=== PATIENT | male | born 1940 | race Two or more races ===

== ENCOUNTER 2020-06-03 11:53 | Inpatient (IN) | payer MEDICARE ==
[~2020-06-03] VITALS: Ht 170.2 cm; Wt 64.0 kg
[2020-06-03 12:05] VITALS: BP 110/75
--- NOTE | 2020-06-03 12:10 | Emergency Room Report ---
History of Present Illness General Chief Complaint: Edema Source: Patient, EMS Present Illness HPI 80-year-old male with past medical history of hypertension and dyslipidemia presents with chief complaint of bilateral lower extremity edema for the past 8 days. 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 Medical Cash Poster name is Dr. Moore however patient has not followed up with him for the past 1 year. He also complains of dyspnea on exertion and difficulty catching his breath. Admits to two-pillow orthopnea. Denies chest pain, fever, rash, cough , nausea, vomiting, diarrhea, melena, hematochezia, trauma or lacerations to his legs. The patient's symptoms were gradual onset, severity was moderate, duration since 8 days. Quality: Swollen Past medical history: Hypertension, dyslipidemia Past surgical history: Denies Smoking: Denies Alcohol use: Occasional Drug use: Denies Review of systems: CONST: No fevers or chills, No night sweats PULMONARY: No productive cough, + shortness of breath CARDIAC: No chest pain, No palpitations GI: No vomiting, No diarrhea , No melena_or_BRBPR : No dysuria, No hematuria, No discharge NEURO: No new_focal_weakness_or_numbness, No confusion, No vision changes 14 point Review of Systems is otherwise negative except per HPI Physical Exam: GENERAL: Awake_alert_ nontoxic, no acute distress Spo2 98% on RA -normal EYES: Extraocular muscles are intact. Conjunctivae clear. Lids without swelling ENT: External nose and ear normal_in_appearance. Oropharynx clear. Head_ atraumatic, Moist_oral_mucosa NECK: + JVD. No meningismus. No thyromegaly. Supple. Trachea midline RESP: Course breath sounds bilaterally. Symmetric rise. No stridor. CARDIAC: Regular rate and regular rhytm. 2+ pedal edema bilaterally negative jane sign ABDOMEN: Soft. Nondistended. Nontender_No_rebound_or_guarding. MSK: Normal muscle tone, without rigidity. Extremities without asymmetric deformity or swelling. SKIN: Warm and dry. No visible cyanosis or pallor NEUROLOGIC: Alert, oriented x3. Motor_and_sensation_grossly_intact. No truncal ataxia. Gait_normal Psych: Normal mood and affect, normal judgment and insight - COORDINATION OF CARE Case was discussed with: Patient , patient's physician Any labs and imaging that were ordered were interpreted as part of the medical decision making: Medical Decision Making/Plan: Differential includes CHF, pulmonary edema, pulmonary embolism, pneumonia, pleural effusions, pneumothorax, among others. EKG NSR without any obvious signs of ischemia. CXR shows congestion, bilateral pleural effusion, CM. No evidence of pneumonia , but does have findings consistent with vascular congestion from CHF. Troponin negative x 1. BNP > 7000 COVID negative Symptoms are not likely to be due to pulmonary embolism, the patient has no significant PE risk factors and has a more likely alternate cause of their symptoms, given their chest xray findings, lung exam and presentation so workup was deferred and not pursued. The patient appears to be in decompensated CHF in exacerbation and not a suitable candidate for outpatient treatment so will be admitted for inpatient diuresis and further evaluation and treatment. - CRITICAL CARE TIME - I spent 35 minutes of critical care time. This time excludes any separately billable procedures. Treatments/Evaluations: Emergent and rapid respiratory assessment and management with continuous monitoring. Advanced airway equipment at the ready, while the patient's respiratory symptoms were stabilized. Given the patients presentation with CHF , there existed the potential for imminent deterioration in the patient's condition due to respiratory compromise. Organ systems at risk for failure without immediate intervention include pulmonary / respiratory I spoke with Dr. Whitley, and reviewed the patients presentation, workup, results, and treatment. They will admit the patient for further care and evaluation, and assume care of the patient at this time. 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 Mediastinum normal. No infiltrate. Impression: Cardiomegaly, pleural effusions bilateral. Vascular congestion ST depressions in lead I and aVL, V5 through V6. Q waves in the inferior leads The X-ray(s) were independently viewed and interpreted contemporaneously Electronically signed by Ashley egan DO Reevaluation Time: 14:45 Last Vital Signs Date Time Temp Pulse Resp B/P (MAP) Pulse Ox O2 Delivery O2 Flow Rate FiO2 06/03/20 11:59 97.5 71 18 104/70 (81) 96 Room Air Status: improved Disposition: ADMITTED INPATIENT - [facility] Admit Decision Time: 14:00 Condition: Stable Ashley Drummond D.O. Jun 03, 2020 12:10
[2020-06-03 13:27] LABS: BASOPHILS % (AUTO) 0.6 % (0.0-2.0); EOSINOPHILS % (AUTO) 0.5 % (0.0-3.0); HEMATOCRIT 35.8 % (42.0-52.0); LYMPHOCYTES % (AUTO) 14.2 % (20.0-45.0); MEAN CORPUSCULAR VOLUME 86 FL (80-99); NEUTROPHILS % (AUTO) 75.7 % (45.0-75.0); PLATELET COUNT 274 K/UL (150-450); RED BLOOD COUNT 4.18 M/UL (4.70-6.10); RED CELL DISTRIBUTION WIDTH 16.4 % (11.6-14.8)
[2020-06-03 13:40] LABS: APPEARANCE,URINE CLEAR; BILIRUBIN, URINE NEGATIVE (NEGATIVE); COLOR,URINE YELLOW; GLUCOSE, URINE (UA) NEGATIVE (NEGATIVE); KETONES,URINE NEGATIVE (NEGATIVE); LEUKOCYTE ESTERASE ,URINE 1+ (NEGATIVE); NITRITE,URINE NEGATIVE (NEGATIVE); PH,URINE 5 (4.5-8.0); PROTEIN,URINE 1+ (NEGATIVE); UROBILINOGEN,URINE NORMAL MG/DL (0.0-1.0)
[2020-06-03 13:48] LABS: ANION GAP 14 mmol/L (5-15); BLOOD UREA NITROGEN 22 mg/dL (7-18); CALCIUM 8.8 MG/DL (8.5-10.1); CARBON DIOXIDE 23 MMOL/L (21-32); CHLORIDE 104 MMOL/L (98-107); CREATININE 1.5 MG/DL (0.55-1.30); POTASSIUM 3.7 MMOL/L (3.5-5.1); SODIUM 141 MMOL/L (136-145)
[2020-06-03 13:59] LABS: ALANINE AMINOTRANSFERASE 25 U/L (12-78); ALBUMIN 3.9 G/DL (3.4-5.0); ALBUMIN/GLOBULIN RATIO 1.1 (1.0-2.7); ALKALINE PHOSPHATASE 75 U/L (46-116); ASPARTATE AMINO TRANSFERASE 21 U/L (15-37); BILIRUBIN,TOTAL 0.8 MG/DL (0.2-1.0)
[2020-06-03] MEDS ORDERED: JANUMET 50-1,01 EACH ORAL (14:09)
[2020-06-03] MEDS ORDERED: Nitroglycerin 2% oint pkt TOPIC ONE (14:15)
[2020-06-03 14:55] VITALS: BP 114/72
--- NOTE | 2020-06-03 16:00 | Diagnostic Imaging Report ---
Indication: Chest pain Technique: One view of the chest Comparison: none Findings: There is bilateral interstitial congestion, bilateral infiltrates, and bilateral basilar pleural effusions. The heart is enlarged. Impression: Findings compatible with congestive heart failure
[2020-06-03] MEDS ORDERED: Darunavir 600mg tab ORAL SCH (18:00)
[2020-06-03 20:00] VITALS: BP 107/69
[2020-06-03] MEDS: NovoLOG Insulin Flexpen SUBQ SCH (21:00)
[2020-06-04] VITALS: BP 111/64
[2020-06-04 04:00] VITALS: BP 103/66
[2020-06-04] MEDS ORDERED: NovoLOG Insulin Flexpen SUBQ SCH (06:30)
[2020-06-04] MEDS: NovoLOG Insulin Flexpen SUBQ SCH ×4 (06:30→20:57)
[2020-06-04 06:40] LABS: BASOPHILS % (AUTO) 0.7 % (0.0-2.0); HEMATOCRIT 34.8 % (42.0-52.0); HEMOGLOBIN 10.9 G/DL (14.2-18.0); LYMPHOCYTES % (AUTO) 16.3 % (20.0-45.0); MEAN CORPUSCULAR VOLUME 85 FL (80-99); MONOCYTES % (AUTO) 9.8 % (1.0-10.0); NEUTROPHILS % (AUTO) 72.2 % (45.0-75.0); PLATELET COUNT 286 K/UL (150-450); RED BLOOD COUNT 4.08 M/UL (4.70-6.10); RED CELL DISTRIBUTION WIDTH 16.4 % (11.6-14.8); WHITE BLOOD COUNT 10.2 K/UL (4.8-10.8)
[2020-06-04 07:04] LABS: ALANINE AMINOTRANSFERASE 24 U/L (12-78); ALBUMIN 3.6 G/DL (3.4-5.0); ALBUMIN/GLOBULIN RATIO 1.1 (1.0-2.7); ALKALINE PHOSPHATASE 72 U/L (46-116); ANION GAP 10 mmol/L (5-15); ASPARTATE AMINO TRANSFERASE 18 U/L (15-37); BILIRUBIN,TOTAL 0.7 MG/DL (0.2-1.0); BLOOD UREA NITROGEN 23 mg/dL (7-18); CALCIUM 8.7 MG/DL (8.5-10.1); CARBON DIOXIDE 25 MMOL/L (21-32); CHLORIDE 106 MMOL/L (98-107); CHOLESTEROL 82 MG/DL (< 200); CREATININE 1.5 MG/DL (0.55-1.30); HDL CHOLESTEROL 37 MG/DL (40-60); POTASSIUM 4.2 MMOL/L (3.5-5.1); SODIUM 141 MMOL/L (136-145); TRIGLYCERIDES 54 MG/DL (30-150)
[2020-06-04 08:00] VITALS: BP 102/62
[2020-06-04] MEDS ORDERED: Losartan 50mg tab ORAL SCH (09:00)
[2020-06-04] MEDS: Heparin 5000 units/ml inj SUBQ SCH ×2 (09:57→21:12)
[2020-06-04 12:08] VITALS: BP 105/65
[2020-06-04] MEDS ORDERED: PREZCOBIX 8001 EACH PO (15:21)
[2020-06-04] MEDS ORDERED: TIVICAY50 MG ORAL (15:21)
[2020-06-04] MEDS ORDERED: ATORVASTATIN CA20 MG ORAL (15:21)
[2020-06-04] MEDS ORDERED: LUBRICATING EYE15 ML OP (15:28)
[2020-06-04] MEDS ORDERED: MELATONIN 5 MG1 EAC1 ORAL (15:28)
[2020-06-04] MEDS ORDERED: METAMUCIL0.52 G1 PO (15:28)
[2020-06-04] MEDS ORDERED: LOSARTAN POTASS50 MG ORAL (15:28)
[2020-06-04] MEDS ORDERED: NAPHCON-A EYE D15 ML OP (15:28)
[2020-06-04] MEDS ORDERED: LORATADINE10 M2 PO (15:28)
[2020-06-04] MEDS ORDERED: CYANOCOBAL1000 MCG/2 IJ (15:28)
[2020-06-04] MEDS ORDERED: FLOMAX0.4 MG ORAL (15:28)
[2020-06-04 15:47] VITALS: BP 93/50
--- NOTE | 2020-06-04 18:45 | Consultation ---
DATE OF CONSULTATION: 06/04/2020 PULMONARY CONSULTATION This is a 80-year-old male with a history of hypertension and hyperlipidemia. He came into the hospital with lower extremity edema. He states he is short of breath. 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 He admits to having orthopnea and PND. The patient reports cough and shortness of breath. PAST MEDICAL HISTORY: Hypertension, hyperlipidemia, unknown cardiac disease. HOME MEDICATIONS: Reviewed, reconciled. REVIEW OF SYSTEMS: Denies any headaches, hematemesis, melena, hematochezia, or weight loss. PHYSICAL EXAMINATION: GENERAL: A 80-year-old male. VITAL SIGNS: Blood pressure 90/60, heart rate 54, respirations 18, O2 sat 98% on 2 L oxygen HEENT: Unremarkable. LUNGS: Decreased breath sounds bilaterally with a few basal crackles. HEART: Normal heart sounds. ABDOMEN: Soft. EXTREMITIES: There is 1+ edema. LABORATORY DATA: Lab testing shows normal CBC with hemoglobin 10.9, creatinine 1.5. Troponin is elevated at 0.14. ProBNP 5367. X-ray of chest was obtained, which shows evidence of pulmonary edema. IMPRESSION: 1. Pulmonary edema. 2. Renal insufficiency. 3. Hypertension. 4. Hyperlipidemia. DISCUSSION: Agree with admission and care. The patient needs 2D echocardiogram, cardiac evaluation. Increase diuresis with careful attention to renal function. DVT prophylaxis. We will follow carefully. Sigifredo Velasquez M.D. DR: LESLEY JOB#: [id number] CC:
[2020-06-04 20:00] VITALS: BP 118/92
--- NOTE | 2020-06-04 21:20 | Cardiology Progress Note ---
Subjective DATE OF SERVICE: Jun 04, 2020 Denies any CP. Says he is less SOB. Doesn't know if he has leg swelling Objective Last 24 Hour Vital Signs Date Time Temp Pulse Resp B/P (MAP) Pulse Ox O2 Delivery O2 Flow Rate FiO2 06/04/20 16:00 62 06/04/20 15:47 98.5 64 20 93/50 (64) 98 06/04/20 12:08 98.1 72 19 105/65 (78) 98 06/04/20 12:00 74 06/04/20 09:54 71 96/54 06/04/20 09:54 96/54 06/04/20 08:35 Room Air 06/04/20 08:00 71 06/04/20 08:00 98.4 71 19 102/62 (75) 98 06/04/20 04:00 96.0 69 18 103/66 (78) 94 06/04/20 04:00 73 06/04/20 00:00 71 06/04/20 00:00 97.1 72 18 111/64 (80) 96 06/03/20 21:18 73 107/69 HEENT: other - facial lipodystrophy CARDIAC: normal rate, regular rhythm, normal S1 and S2, systolic murmur - 1/6 systolic murmur at apex ABDOMEN: non tender, soft EXTREMITIES: no calf tenderness, +2 edema Laboratory Tests Test 06/04/20 05:34 06/04/20 16:20 06/04/20 20:56 White Blood Count 10.2 K/UL (4.8-10.8) Red Blood Count 4.08 M/UL (4.70-6.10) L Hemoglobin 10.9 G/DL (14.2-18.0) L Hematocrit 34.8 % (42.0-52.0) L Mean Corpuscular Volume 85 FL (80-99) Mean Corpuscular Hemoglobin 26.6 PG (27.0-31.0) L Mean Corpuscular Hemoglobin Concent 31.3 G/DL (32.0-36.0) L Red Cell Distribution Width 16.4 % (11.6-14.8) H Platelet Count 286 K/UL (150-450) Mean Platelet Volume 7.1 FL (6.5-10.1) Neutrophils (%) (Auto) 72.2 % (45.0-75.0) Lymphocytes (%) (Auto) 16.3 % (20.0-45.0) L Monocytes (%) (Auto) 9.8 % (1.0-10.0) Eosinophils (%) (Auto) 1.0 % (0.0-3.0) Basophils (%) (Auto) 0.7 % (0.0-2.0) Sodium Level 141 MMOL/L (136-145) Potassium Level 4.2 MMOL/L (3.5-5.1) Chloride Level 106 MMOL/L (98-107) Carbon Dioxide Level 25 MMOL/L (21-32) Anion Gap 10 mmol/L (5-15) Blood Urea Nitrogen 23 mg/dL (7-18) H Creatinine 1.5 MG/DL (0.55-1.30) H Estimat Glomerular Filtration Rate 45.3 mL/min (>60) Glucose Level 91 MG/DL (74-106) Calcium Level 8.7 MG/DL (8.5-10.1) Magnesium Level 2.2 MG/DL (1.8-2.4) Total Bilirubin 0.7 MG/DL (0.2-1.0) Aspartate Amino Transf (AST/SGOT) 18 U/L (15-37) Alanine Aminotransferase (ALT/SGPT) 24 U/L (12-78) Alkaline Phosphatase 72 U/L (46-116) Troponin I 0.142 ng/mL (0.000-0.056) Pro-B-Type Natriuretic Peptide 5367 pg/mL (0-125) H Total Protein 7.0 G/DL (6.4-8.2) Albumin 3.6 G/DL (3.4-5.0) Globulin 3.4 g/dL Albumin/Globulin Ratio 1.1 (1.0-2.7) Triglycerides Level 54 MG/DL (30-150) Cholesterol Level 82 MG/DL (< 200) LDL Cholesterol 37 mg/dL (<100) HDL Cholesterol 37 MG/DL (40-60) L Cholesterol/HDL Ratio 2.2 (3.3-4.4) L Thyroid Stimulating Hormone (TSH) 2.081 uiU/mL (0.358-3.740) POC Whole Blood Glucose 127 MG/DL (74-106) H Pending Microbiology Date/Time Source Procedure Growth Status 06/03/20 13:35 Nasopharynx SARS-CoV-2 RdRp Gene Assay - Final Complete EKG INTERPRETATION: 2D Echo: EF 35% with regional WM abn. 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
--- NOTE | 2020-06-04 23:45 | History and Physical Report ---
DATE OF ADMISSION: 06/03/2020 REASON FOR ADMISSION: Congestive heart failure exacerbation and elevated troponin level. HISTORY OF PRESENT ILLNESS: This 80-year-old male with a history of high blood pressure has had over a week of progressive lower extremity swelling. He has had some shortness of breath on exertion, but not at rest, but does admit to 2-pillow orthopnea. He has not had chest pain. He has not had recent upper respiratory symptoms such as cough, sputum production, fevers, or chills nor he had any GI symptomatology such as diarrhea, nausea, or vomiting. The patient has been compliant with medications. PAST MEDICAL HISTORY: Hypertension, HIV, AIDS, dyslipidemia, insulin-requiring diabetes mellitus. SOCIAL HISTORY: Negative for smoking, alcohol abuse, or substance abuse. ALLERGIES: None known. MEDICATIONS: Reviewed and reconciled. REVIEW OF SYSTEMS: No fevers or chills. No loss of vision or hearing. No sinus congestion. No change in bowel habits. No history of abnormal blood clotting. He states that he is on anti RNA therapy and has undetectable viral load. There is no history of seizure or stroke. There is no history of thyroid disorder or diabetes. PHYSICAL EXAMINATION: VITAL SIGNS: Blood pressure 104/70, heart rate 71, respirations 18, afebrile. HEENT: Facial lipodystrophy. NECK: Jugular venous pressure greater than 10. LUNGS: Diminished breath sounds and rales. CARDIAC: Diffuse point of maximum pulse. Regular rhythm rate. Normal S1, S2. A 1/6 systolic apical murmur. No third heart sound. ABDOMEN: Soft. No ascites. EXTREMITIES: 2+ bilateral pitting edema. NEUROLOGIC: Nonfocal. LABORATORY AND DIAGNOSTIC DATA: EKG with sinus rhythm, left ventricular hypertrophy with repolarization changes and possible anterolateral ischemia. Chest x-ray with pleural effusions and pulmonary venous congestion. White count 9, hemoglobin 11. Troponin 0.055. BUN 23, creatinine 1.5, potassium 3.7. Pro natriuretic peptide 7600. IMPRESSION: 1. Acute myocardial ischemia. 2. Acute on chronic systolic and diastolic congestive heart failure. 3. HIV/AIDS. 4. Acute on chronic kidney insufficiency. 5. Anemia of chronic disease. 6. Insulin-requiring diabetes mellitus with mild hyperglycemia. PLAN: 1. Cardiac monitoring. 2. Serial troponins. 3. Diuresis. 4. Maximization of anti-failure and antianginal therapy. 5. Echocardiogram. 6. DVT prophylaxis. 7. Venous duplex study to assess for possible source of pulmonary emboli. 8. Insulin coverage by sliding scale. Ronald Whitley M.D. DR: JOSELIN JOB#: [id number] CC:
[2020-06-05] VITALS: BP 102/58
[2020-06-05 04:00] VITALS: BP 123/77
[2020-06-05] MEDS: NovoLOG Insulin Flexpen SUBQ SCH ×4 (06:30→20:53)
[2020-06-05 07:06] LABS: ANION GAP 9 mmol/L (5-15); BLOOD UREA NITROGEN 15 mg/dL (7-18); CALCIUM 8.5 MG/DL (8.5-10.1); CARBON DIOXIDE 26 MMOL/L (21-32); CHLORIDE 108 MMOL/L (98-107); CREATININE 1.2 MG/DL (0.55-1.30); POTASSIUM 3.5 MMOL/L (3.5-5.1); SODIUM 143 MMOL/L (136-145)
[2020-06-05 08:00] VITALS: BP 108/56
[2020-06-05] MEDS: Losartan 50mg tab ORAL SCH ×2 (09:00→17:17)
[2020-06-05] MEDS ORDERED: Darunavir 600mg tab ORAL SCH (09:00)
[2020-06-05] MEDS ORDERED: Dolutegravir Sodium 50mg tab ORAL SCH ×2 (09:00)
[2020-06-05] MEDS: Heparin 5000 units/ml inj SUBQ SCH ×2 (10:55→20:52)
[2020-06-05] MEDS: TIVICAY 50 MG ORAL SCH (10:56)
[2020-06-05] MEDS: PREZCOBIX ORAL SCH (10:56)
--- NOTE | 2020-06-05 10:59 | Pulmonology Progress Note ---
Subjective Interval Events: Feeling better Constitutional: Reports: no symptoms HEENT: Repors: no symptoms Respiratory: Reports: no symptoms Cardiovascular: Reports: no symptoms Gastrointestinal/Abdominal: Reports: no symptoms Allergies: Coded Allergies: No Known Allergies (Unverified , 06/03/20) Objective Last 24 Hour Vital Signs Date Time Temp Pulse Resp B/P (MAP) Pulse Ox O2 Delivery O2 Flow Rate FiO2 06/05/20 09:00 Room Air 06/05/20 09:00 108/56 06/05/20 09:00 71 108/56 06/05/20 08:00 97.8 68 20 108/56 (73) 97 06/05/20 08:00 71 06/05/20 04:00 97.8 94 18 123/77 (92) 97 06/05/20 04:00 62 06/05/20 00:00 96.3 64 17 102/58 (73) 97 06/05/20 00:00 73 06/04/20 21:10 72 119/65 06/04/20 21:00 Room Air 06/04/20 20:00 71 06/04/20 20:00 97.9 80 18 118/92 (101) 98 06/04/20 16:00 62 06/04/20 15:47 98.5 64 20 93/50 (64) 98 06/04/20 12:08 98.1 72 19 105/65 (78) 98 06/04/20 12:00 74 Intake and Output 06/04/20 06/05/20 19:00 07:00 Output Total 2200 ml 1000 ml Balance -2200 ml -1000 ml Output Urine Total 2200 ml 1000 ml # Voids 3 # Bowel Movements 1 2 General Appearance: no acute distress HEENT: normocephalic Respiratory: chest wall non-tender Cardiovascular: normal peripheral pulses Abdomen: normal bowel sounds Microbiology Date/Time Source Procedure Growth Status 06/03/20 13:35 Nasopharynx SARS-CoV-2 RdRp Gene Assay - Final Complete Laboratory Tests 06/04/20 11:28: POC Whole Blood Glucose 143H 06/04/20 16:20: POC Whole Blood Glucose 127H 06/04/20 20:56: POC Whole Blood Glucose [Pending] 06/05/20 05:18: POC Whole Blood Glucose 87 06/05/20 06:10: Sodium Level 143, Potassium Level 3.5, Chloride Level 108H, Carbon Dioxide Level 26, Anion Gap 9, Blood Urea Nitrogen 15, Creatinine 1.2, Estimat Glomerular Filtration Rate 58.6, Glucose Level 132H, Uric Acid 4.6, Calcium Level 8.5, Troponin I 0.068H Current Medications Medications (Trade) Dose Ordered Sig/[place] Route PRN Reason Start Time Stop Time Status Last Admin Dose Admin Atorvastatin Calcium (Lipitor) 10 mg BEDTIME ORAL 06/03/20 21:00 09/01/20 20:59 06/04/20 21:10 Dextrose (Dextrose 50%) 25 ml Q30M PRN IV Hypoglycemia 06/03/20 17:30 09/01/20 17:29 Dextrose (Dextrose 50%) 50 ml Q30M PRN IV Hypoglycemia 06/03/20 17:30 09/01/20 17:29 Furosemide (Lasix) 40 mg DAILY IV 06/03/20 18:00 07/03/20 17:59 06/05/20 10:53 Heparin Sodium (Porcine) (Heparin 5000 units/ml) 5,000 units EVERY 12 HOURS SUBQ 06/04/20 09:00 07/19/20 08:59 06/05/20 10:55 Insulin Aspart (NovoLOG) BEFORE MEALS AND HS SUBQ 06/03/20 21:00 09/01/20 20:59 Losartan Potassium (Cozaar) 50 mg BID ORAL 06/05/20 09:00 07/05/20 08:59 Metoprolol Tartrate (Lopressor) 25 mg Q12HR ORAL 06/03/20 21:00 09/01/20 20:59 06/04/20 21:10 Patient Own Medication (Patient's Own Med) 1 ea DAILY ORAL 06/05/20 09:00 07/05/20 08:59 Future hold 06/05/20 10:56 Patient Own Medication (Patient's Own Med) 1 ea DAILY ORAL 06/05/20 09:00 07/05/20 08:59 Future hold 06/05/20 10:56 Potassium Chloride (K-Dur) 20 meq DAILY ORAL 06/04/20 09:00 09/02/20 08:59 06/05/20 10:53 Tamsulosin HCl (Flomax) 0.4 mg BEDTIME ORAL 06/05/20 21:00 07/05/20 20:59 Assessment/Plan Assessment/Plan IMPRESSION: 1. Pulmonary edema. 2. Renal insufficiency. 3. Hypertension. 4. Hyperlipidemia. 5. HIV DISCUSSION: Continue diuresis with careful attention to renal function. DVT prophylaxis. I will follow carefully. Currently saturating well on RA Eric Martinez Omar Syed MD Jun 05, 2020 10:59
[2020-06-05 12:00] VITALS: BP 128/77
--- NOTE | 2020-06-05 12:15 | Diagnostic Imaging Report ---
Indication: Bilateral lower extremity edema and pain Technique: Grayscale and duplex images of the bilateral lower extremity veins Comparison: Findings: Bilaterally, grayscale and duplex images demonstrate no evidence of intraluminal thrombus. Normal phasic Doppler waveforms, demonstrating normal augmentation response and no evidence of valvular insufficiency. Greater saphenous vein(s) and tibial veins are patent. Normal compressibility. Impression: Negative for evidence of lower extremity deep venous thrombosis bilaterally
[2020-06-05 16:00] VITALS: BP 105/57
[2020-06-05] MEDS ORDERED: TESTOSTERO200 MG/1 M IM (16:22)
[2020-06-05 20:00] VITALS: BP 112/71
[2020-06-05] MEDS ORDERED: Tamsulosin 0.4mg cap ORAL SCH (21:00)
--- NOTE | 2020-06-05 23:41 | Cardiology Progress Note ---
Subjective DATE OF SERVICE: Jun 05, 2020 Denies any CP. Says he is less SOB. Continues to diurese well on current regimen. Objective Last 24 Hour Vital Signs Date Time Temp Pulse Resp B/P (MAP) Pulse Ox O2 Delivery O2 Flow Rate FiO2 06/05/20 21:00 Nasal Cannula 2.0 06/05/20 20:40 77 119/69 06/05/20 20:00 97.7 73 18 112/71 (85) 97 06/05/20 17:17 105/57 06/05/20 16:00 97.8 66 20 105/57 (73) 98 06/05/20 16:00 63 06/05/20 12:00 97.9 73 20 128/77 (94) 97 06/05/20 12:00 78 06/05/20 09:00 Room Air 06/05/20 09:00 108/56 06/05/20 09:00 71 108/56 06/05/20 08:00 97.8 68 20 108/56 (73) 97 06/05/20 08:00 71 06/05/20 04:00 97.8 94 18 123/77 (92) 97 06/05/20 04:00 62 06/05/20 00:00 96.3 64 17 102/58 (73) 97 06/05/20 00:00 73 HEENT: other - facial lipodystrophy CARDIAC: normal rate, regular rhythm, normal S1 and S2, systolic murmur - 1/6 systolic murmur at apex ABDOMEN: non tender, soft EXTREMITIES: no calf tenderness, +2 edema Laboratory Tests Test 06/05/20 05:18 06/05/20 06:10 06/05/20 11:06 06/05/20 17:16 POC Whole Blood Glucose 87 MG/DL (74-106) 101 MG/DL (74-106) 161 MG/DL (74-106) H Sodium Level 143 MMOL/L (136-145) Potassium Level 3.5 MMOL/L (3.5-5.1) Chloride Level 108 MMOL/L (98-107) H Carbon Dioxide Level 26 MMOL/L (21-32) Anion Gap 9 mmol/L (5-15) Blood Urea Nitrogen 15 mg/dL (7-18) Creatinine 1.2 MG/DL (0.55-1.30) Estimat Glomerular Filtration Rate 58.6 mL/min (>60) Glucose Level 132 MG/DL (74-106) H Uric Acid 4.6 MG/DL (2.6-7.2) Calcium Level 8.5 MG/DL (8.5-10.1) Troponin I 0.068 ng/mL (0.000-0.056) Test 06/05/20 20:13 POC Whole Blood Glucose 138 MG/DL (74-106) H Microbiology Date/Time Source Procedure Growth Status 06/03/20 13:35 Nasopharynx SARS-CoV-2 RdRp Gene Assay - Final Complete Assessment/Plan Assessment/Plan Acute on chronic systolic and 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 Maximize afterload reduction Antiplatelet therapy DC plan tomorrow with outpatient ischemia work-up Ronald Whitley MD Jun 05, 2020 23:41
[2020-06-06] VITALS: BP 101/60
[2020-06-06 04:00] VITALS: BP 105/64
[2020-06-06] MEDS: NovoLOG Insulin Flexpen SUBQ SCH ×3 (06:19→16:30)
[2020-06-06 07:28] LABS: ALANINE AMINOTRANSFERASE 24 U/L (12-78); ALBUMIN 3.5 G/DL (3.4-5.0); ALKALINE PHOSPHATASE 71 U/L (46-116); ANION GAP 9 mmol/L (5-15); ASPARTATE AMINO TRANSFERASE 20 U/L (15-37); BILIRUBIN,TOTAL 0.7 MG/DL (0.2-1.0); BLOOD UREA NITROGEN 13 mg/dL (7-18); CALCIUM 8.5 MG/DL (8.5-10.1); CARBON DIOXIDE 27 MMOL/L (21-32); CHLORIDE 107 MMOL/L (98-107); CREATININE 1.2 MG/DL (0.55-1.30); POTASSIUM 3.6 MMOL/L (3.5-5.1); SODIUM 143 MMOL/L (136-145)
[2020-06-06 08:00] VITALS: BP 110/65
--- NOTE | 2020-06-06 08:23 | Pulmonology Progress Note ---
Subjective Interval Events: Feeling better Constitutional: Reports: no symptoms HEENT: Repors: no symptoms Respiratory: Reports: no symptoms Cardiovascular: Reports: no symptoms Gastrointestinal/Abdominal: Reports: no symptoms Allergies: Coded Allergies: No Known Allergies (Unverified , 06/03/20) Objective Last 24 Hour Vital Signs Date Time Temp Pulse Resp B/P (MAP) Pulse Ox O2 Delivery O2 Flow Rate FiO2 06/06/20 04:00 58 06/06/20 04:00 98.1 64 18 105/64 (78) 98 06/06/20 00:00 63 06/06/20 00:00 97.7 65 18 101/60 (74) 94 06/05/20 21:00 Nasal Cannula 2.0 06/05/20 20:40 77 119/69 06/05/20 20:00 97.7 73 18 112/71 (85) 97 06/05/20 20:00 79 06/05/20 17:17 105/57 06/05/20 16:00 97.8 66 20 105/57 (73) 98 06/05/20 16:00 63 06/05/20 12:00 97.9 73 20 128/77 (94) 97 06/05/20 12:00 78 06/05/20 09:00 Room Air 06/05/20 09:00 108/56 06/05/20 09:00 71 108/56 Intake and Output 06/05/20 06/06/20 19:00 07:00 Intake Total 500 ml Balance 500 ml Intake Oral 500 ml # Voids 5 2 # Bowel Movements 1 General Appearance: no acute distress HEENT: normocephalic Respiratory: chest wall non-tender Cardiovascular: normal peripheral pulses Abdomen: normal bowel sounds Microbiology Date/Time Source Procedure Growth Status 06/03/20 13:35 Nasopharynx SARS-CoV-2 RdRp Gene Assay - Final Complete Laboratory Tests 06/05/20 11:06: POC Whole Blood Glucose 101 06/05/20 17:16: POC Whole Blood Glucose 161H 06/05/20 20:13: POC Whole Blood Glucose 138H 06/06/20 05:44: POC Whole Blood Glucose 105 06/06/20 06:00: Sodium Level 143, Potassium Level 3.6, Chloride Level 107, Carbon Dioxide Level 27, Anion Gap 9, Blood Urea Nitrogen 13, Creatinine 1.2, Estimat Glomerular Filtration Rate 58.6, Glucose Level 105, Calcium Level 8.5, Magnesium Level 2.1 , Total Bilirubin 0.7, Aspartate Amino Transf (AST/SGOT) 20, Alanine Aminotransferase (ALT/SGPT) 24, Alkaline Phosphatase 71, Pro-B-Type Natriuretic Peptide 7493H, Total Protein 7.1, Albumin 3.5, Globulin 3.6, Albumin/Globulin Ratio 1.0 Current Medications Medications (Trade) Dose Ordered Sig/[place] Route PRN Reason Start Time Stop Time Status Last Admin Dose Admin Atorvastatin Calcium (Lipitor) 10 mg BEDTIME ORAL 06/03/20 21:00 09/01/20 20:59 06/05/20 20:39 Dextrose (Dextrose 50%) 25 ml Q30M PRN IV Hypoglycemia 06/03/20 17:30 09/01/20 17:29 Dextrose (Dextrose 50%) 50 ml Q30M PRN IV Hypoglycemia 06/03/20 17:30 09/01/20 17:29 Furosemide (Lasix) 40 mg DAILY IV 06/03/20 18:00 07/03/20 17:59 06/05/20 10:53 Heparin Sodium (Porcine) (Heparin 5000 units/ml) 5,000 units EVERY 12 HOURS SUBQ 06/04/20 09:00 07/19/20 08:59 06/05/20 20:52 Insulin Aspart (NovoLOG) BEFORE MEALS AND HS SUBQ 06/03/20 21:00 09/01/20 20:59 Losartan Potassium (Cozaar) 50 mg BID ORAL 06/05/20 09:00 07/05/20 08:59 06/05/20 17:17 Metoprolol Tartrate (Lopressor) 25 mg Q12HR ORAL 06/03/20 21:00 09/01/20 20:59 06/05/20 20:40 Patient Own Medication (Patient's Own Med) 1 ea DAILY ORAL 06/05/20 09:00 07/05/20 08:59 Future hold 06/05/20 10:56 Patient Own Medication (Patient's Own Med) 1 ea DAILY ORAL 06/05/20 09:00 07/05/20 08:59 Future hold 06/05/20 10:56 Potassium Chloride (K-Dur) 20 meq DAILY ORAL 06/04/20 09:00 09/02/20 08:59 06/05/20 10:53 Tamsulosin HCl (Flomax) 0.4 mg BEDTIME ORAL 06/05/20 21:00 07/05/20 20:59 06/05/20 20:39 Assessment/Plan Assessment/Plan IMPRESSION: 1. Pulmonary edema. 2. Renal insufficiency. 3. Hypertension. 4. Hyperlipidemia. 5. HIV DISCUSSION: Continue diuresis with careful attention to renal function. DVT prophylaxis. I will follow carefully. Currently saturating well on 2L/min O2 Eric Martinez Omar Syed MD Jun 06, 2020 08:23
[2020-06-06] MEDS: Heparin 5000 units/ml inj SUBQ SCH (09:14)
[2020-06-06] MEDS: Losartan 50mg tab ORAL SCH ×2 (09:15→17:38)
[2020-06-06] MEDS: TIVICAY 50 MG ORAL SCH (09:16)
[2020-06-06] MEDS: PREZCOBIX ORAL SCH (09:16)
[2020-06-06 12:00] VITALS: BP 108/65
[2020-06-06] MEDS ORDERED: LOPRESSOR25 M1 ORAL (13:35)
[2020-06-06] MEDS ORDERED: ALDACTONE25 MG ORAL (13:35)
[2020-06-06] MEDS ORDERED: FUROSEMIDE20 M1 ORAL (13:35)
[2020-06-06] MEDS ORDERED: Meningococcal Polysacc Vaccine IM ONE (14:00)
[2020-06-06 16:00] VITALS: BP 97/54
[2020-06-06 17:38] VITALS: BP 97/54
--- NOTE | 2020-06-08 13:01 | Discharge Summary ---
Discharge Summary Discharge Summary _ DATE OF ADMISSION: 06/03/2020 DATE OF DISCHARGE: 06/06/2020 DISCHARGED BY: Dr. Ronald Marquez CONSULTANTS: Dr. Leesa Velasquez BRIEF HOSPITAL COURSE: Patient is a 80-year-old gentleman with history of high blood pressure , who had over 1 week of progressive lower extremity swelling. He also had shortness of breath on exertion, but not at rest. He admits to two-pillow orthopnea. He has not had chest pain. No recent upper respiratory symptoms such as cough, sputum production, fever or chills nor any GI symptomatology such as diarrhea, nausea or vomiting. He has been compliant with his medications. He has medical history of hypertension, HIV, AIDS, dyslipidemia, and insulin requiring diabetes mellitus. Upon evaluation at ED, vital signs were stable. Blood work did not show any leukocytosis. Initial troponin was 0.055. proBNP was greater than 7000. EKG showed normal sinus rhythm without any obvious signs of ischemia. Chest x-ray showed congestion, bilateral effusion, cardiomegaly. No evidence of pneumonia. Patient was then admitted for evaluation of CHF. Patient was admitted to monitored floor. Cardiac enzymes were monitored. Second troponin was 0.142. He was given IV diuresis. He was given anti- failure and antianginal therapy. He was placed Heparin for DVT prophylaxis. Blood glucose was monitored and was placed on insulin coverage sliding scale. He was continued on his home medications. He was given antiplatelet therapy. He was given Cozaar and metoprolol. Patient is on Lipitor. Patient was diuresing well. Patient had less shortness of breath. He was given potassium supplements. Patient was cleared for discharge home. To continue oral diuretics. 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 DISCHARGE MEDICATIONS: Refer to Discharge Medication List. DISCHARGE INSTRUCTIONS: Follow-up in a week. I have been assigned to complete a discharge summary on this account, I was not involved with the patient's management.--PATRICIA Cali Jacqueline Robles NP Jun 08, 2020 13:01
== END 2020-06-06 18:11 | disposition home or self-care (01) | DRG 280 ==
LOC: EMR 12:30 → 2E 14:30 → EDBEDREQ 15:11 → 2E 16:38
DX: I13.0 Hypertensive heart and chronic kidney disease with heart failure and stage 1 through stage 4 chronic kidney disease, or unspecified chronic kidney disease (principal); I50.43 Acute on chronic combined systolic (congestive) and diastolic (congestive) heart failure; I21.4 Non-ST elevation (NSTEMI) myocardial infarction; N17.9 Acute kidney failure, unspecified; B20 Human immunodeficiency virus [HIV] disease; N18.9 Chronic kidney disease, unspecified; E78.5 Hyperlipidemia, unspecified; D63.8 Anemia in other chronic diseases classified elsewhere; E11.65 Type 2 diabetes mellitus with hyperglycemia; I49.1 Atrial premature depolarization; I49.3 Ventricular premature depolarization; B33.24 Viral cardiomyopathy
CPT/HCPCS: 36415; 71045; 80048; 80053; 80061; 81003; 82962; 83735; 83880; 84443; 84484; 84550; 85025; 93005; 93306; 93970; 99291; J1815; J8499; U0002

== ENCOUNTER 2020-08-25 12:36 | Inpatient (IN) | payer MEDICARE, OTHER ==
[~2020-08-25] VITALS: Ht 165.1 cm; Wt 62.6 kg
[~2020-08-25 12:36] MED LIST: ALDACTONE25 MG ORAL; ATORVASTATIN CA20 MG ORAL; CYANOCOBAL1000 MCG/2 IJ; FLOMAX0.4 MG ORAL; FUROSEMIDE20 M1 ORAL; JANUMET 50-1,01 EACH ORAL; LOPRESSOR25 M1 ORAL; LORATADINE10 M2 PO; LOSARTAN POTASS50 MG ORAL; LUBRICATING EYE15 ML OP; MELATONIN 5 MG1 EAC1 ORAL; METAMUCIL0.52 G1 PO; NAPHCON-A EYE D15 ML OP; PREZCOBIX 8001 EACH PO; TESTOSTERO200 MG/1 M IM; TIVICAY50 MG ORAL
--- NOTE | 2020-08-25 13:11 | Emergency Room Report ---
History of Present Illness General Chief Complaint: Dyspnea/Respdistress Source: Patient Present Illness HPI Patient is a 80-year-old male past medical history of CHF on Lasix, hypertension, hyperlipidemia who presents to the ER complaining of shortness of breath for 2 weeks. Patient also complains of substernal chest pain. He states that it is worse on exertion. He also complains of lower extremity edema for the past 2 weeks. He denies any fever or chills. He denies any cough. Denies abdominal pain, nausea or vomiting. He states that he sleeps with one pillow. Allergies: Coded Allergies: No Known Allergies (Unverified , 06/03/20) COVID-19 Screening Contact w/high risk pt: No Experienced COVID-19 symptoms?: No COVID-19 Testing performed SENIOR ASIC ENGINEER: No Patient History Reviewed Nursing Documentation: PMH: Agreed; PSxH: Agreed Nursing Documentation-PM Past Medical History: No History, Except For Hx Hypertension: Yes - DYSLIPIDEMIA Hx Cancer: No Hx Gastrointestinal Problems: No Hx Neurological Problems: No Review of Systems All Other Systems: negative except mentioned in HPI Physical Exam Vital Signs Date Time Temp Pulse Resp B/P (MAP) Pulse Ox O2 Delivery O2 Flow Rate FiO2 08/25/20 12:45 97.3 67 16 91/58 (69) 97 Room Air Sp02 EP Interpretation: reviewed, normal General Appearance: no apparent distress, alert, GCS 15, non-toxic Head: normocephalic, atraumatic Eyes: bilateral eye normal inspection, bilateral eye PERRL ENT: hearing grossly normal, normal pharynx, no angioedema, normal voice Neck: full range of motion, supple/symm/no masses Respiratory: other - Bibasilar Rales Cardiovascular #1: regular rate, rhythm Gastrointestinal: normal bowel sounds, non tender, soft, non-distended, no guarding, no rebound Rectal: deferred Musculoskeletal: other - Bilateral lower extremity edema right greater than left Neurologic: shingle bolt cutter III-XII nml as tested, oriented x3 Psychiatric: no suicidal/homicidal ideation Skin: no rash Lymphatic: no adenopathy Procedures Critical Care Time Critical Care Time Total critical care time: Approximately 35 minutes. Due to a high probability of clinically significant, life threatening deterioration, the patient required my highest level of preparedness to intervene emergently and I personally spent this critical care time directly and personally managing the patient. This critical care time included obtaining a history; examining the patient; pulse oximetry; ordering and review of studies; arranging urgent treatment with development of a management plan; evaluation of patient's response to treatment; frequent reassessment; and, discussions with other providers.This critical care time was performed to assess and manage the high probability of imminent, life- threatening deterioration that could result in multi-organ failure. It was exclusive of separately billable procedures and treating other patients and teaching time. Please see MDM section and the rest of the note for further information on patient assessment and treatment. Medical Decision Making Diagnostic Impression: Primary Impression: CHF (congestive heart failure) Additional Impressions: Pleural effusion Pneumonia Pedal edema Anemia NSTEMI (non-ST elevated myocardial infarction) ER Course Patient presents with CHF exacerbation. Patient has borderline blood pressures therefore I will hold off on starting Lasix. Patient does have an elevated troponin and currently denies any active chest pain. EKG demonstrates no ST elevation. Patient be started on heparin. Patient's D-dimer is elevated and patient has acute renal insufficiency therefore will order VQ scan which is pending. Chest x-ray unclear for underlying pneumonia. Patient started on azithromycin as well as cefepime. Patient will be admitted for further treatment and evaluation. Pending insurance approval. Signed out to oncoming physician pending admission. Laboratory Tests Test 08/25/20 13:11 White Blood Count 9.9 K/UL (4.8-10.8) Red Blood Count 3.66 M/UL (4.70-6.10) L Hemoglobin 10.1 G/DL (14.2-18.0) L Hematocrit 32.7 % (42.0-52.0) L Mean Corpuscular Volume 89 FL (80-99) Mean Corpuscular Hemoglobin 27.5 PG (27.0-31.0) Mean Corpuscular Hemoglobin Concent 30.9 G/DL (32.0-36.0) L Red Cell Distribution Width 22.7 % (11.6-14.8) H Platelet Count 241 K/UL (150-450) Mean Platelet Volume 7.0 FL (6.5-10.1) Neutrophils (%) (Auto) 78.2 % (45.0-75.0) H Lymphocytes (%) (Auto) 12.5 % (20.0-45.0) L Monocytes (%) (Auto) 8.6 % (1.0-10.0) Eosinophils (%) (Auto) 0.3 % (0.0-3.0) Basophils (%) (Auto) 0.5 % (0.0-2.0) Prothrombin Time 11.6 SEC (9.30-11.50) H Prothrombin Time INR 1.1 (0.9-1.1) Activated Partial Thromboplast Time 27 SEC (23-33) D-Dimer 1.60 mg/L FEU (0.00-0.49) H Sodium Level 135 MMOL/L (136-145) L Potassium Level 4.3 MMOL/L (3.5-5.1) Chloride Level 102 MMOL/L (98-107) Carbon Dioxide Level 18 MMOL/L (21-32) L Anion Gap 15 mmol/L (5-15) Blood Urea Nitrogen 51 mg/dL (7-18) H Creatinine 3.0 MG/DL (0.55-1.30) H Estimated Glomerular Filtration Rate 20.3 mL/min (>60) Glucose Level 114 MG/DL (74-106) H Calcium Level 8.2 MG/DL (8.5-10.1) L Magnesium Level 2.3 MG/DL (1.8-2.4) Total Bilirubin 0.5 MG/DL (0.2-1.0) Aspartate Amino Transferase (AST) 14 U/L (15-37) L Alanine Aminotransferase (ALT) 14 U/L (12-78) Alkaline Phosphatase 101 U/L (46-116) Troponin I 0.129 ng/mL (0.000-0.056) Pro-B-Type Natriuretic Peptide 24042 pg/mL (0-125) H Total Protein 7.1 G/DL (6.4-8.2) Albumin 3.4 G/DL (3.4-5.0) Globulin 3.7 g/dL Albumin/Globulin Ratio 0.9 (1.0-2.7) L Microbiology Date/Time Source Procedure Growth Status 08/25/20 13:11 Nasopharynx SARS-CoV-2 RdRp Gene Assay - Final Complete EKG Diagnostic Results Troponin ordered: Yes When was troponin ordered?: Aug 25, 2020 EKG Time: 12:49 EP Interpretation: Yumiko Parrish MD Rate: normal - 66 bpm Rhythm: NSR ST Segments: no acute changes Other Impression Incomplete left bundle branch block ASA given to the pt in ED: Yes Rhythm Strip Diag. Results Rhythm Strip Time: 13:11 EP Interpretation: yes - Yumiko Parrish MD Rate: 69 bpm Rhythm: NSR, no PVC's, no ectopy Chest X-Ray Diagnostic Results Chest X-Ray Diagnostic Results : Chest X-Ray Ordered: Yes # of Views/Limited/Complete: 1 View Indication: Chest Pain EP Interpretation: Yes Interpretation: no pneumothorax, other - Interstitial edema, bilateral moderate pleural effusions, questionable underlying pneumonia Impression: Other - CHF with possible concomitant pneumonia Electronically Signed by: Yumiko Parrish MD Last Vital Signs Date Time Temp Pulse Resp B/P (MAP) Pulse Ox O2 Delivery O2 Flow Rate FiO2 08/25/20 12:45 97.3 67 16 91/58 (69) 97 Room Air Disposition: ADMITTED INPATIENT - Telemetry Condition: Critical Additional Instructions: Please note that this report is being documented using Fortisphere technology. This can lead to erroneous entry secondary to incorrect interpretation by the dictating instrument. Yumiko Parrish M.D. Aug 25, 2020 13:11
[2020-08-25 13:22] LABS: BASOPHILS % (AUTO) 0.5 % (0.0-2.0); EOSINOPHILS % (AUTO) 0.3 % (0.0-3.0); HEMATOCRIT 32.7 % (42.0-52.0); HEMOGLOBIN 10.1 G/DL (14.2-18.0); LYMPHOCYTES % (AUTO) 12.5 % (20.0-45.0); MEAN CORPUSCULAR VOLUME 89 FL (80-99); MONOCYTES % (AUTO) 8.6 % (1.0-10.0); NEUTROPHILS % (AUTO) 78.2 % (45.0-75.0); PLATELET COUNT 241 K/UL (150-450); RED BLOOD COUNT 3.66 M/UL (4.70-6.10); RED CELL DISTRIBUTION WIDTH 22.7 % (11.6-14.8); WHITE BLOOD COUNT 9.9 K/UL (4.8-10.8)
--- NOTE | 2020-08-25 13:24 | Diagnostic Imaging Report ---
Indication: Reason For Exam: CP Technique: Single AP view of the chest. Comparison: Chest radiograph dated 06/03/2020 Findings: The cardiomediastinal silhouette is unchanged in appearance, with persistent cardiomegaly. There is interstitial edema. Small moderate bilateral pleural effusions with associated bibasilar streaky no pneumothorax. No acute osseous abnormality. Airspace opacities IMPRESSION: 1. Persistent edema with small to moderate bilateral pleural effusions; associated streaky airspace opacities may represent compressive atelectasis but pneumonia should be excluded clinically. 2. Cardiomegaly.
[2020-08-25] MEDS ORDERED: B COMPLEX1 EACH ORAL (13:28)
[2020-08-25] MEDS ORDERED: PREZCOBIX 8001 EACH PO (13:31)
[2020-08-25] MEDS ORDERED: OMEPRAZOLE20 M3 ORAL (13:31)
--- NOTE | 2020-08-25 13:37 | NUR ---
ED Nurse Note: PT. AAOX4. AMBULATROY. PT. WALKED IN TO ER FROM HOME. PER PT. HE HAS BEEN HAVING A CP X 3 DAYS NOW AND HAS PAIN WITH SWELLING ON BLE FOR COUPLE DAYS NOW. NO S/S OF ACUTE RESP DISTRESS NOTED. CHANGED INTO PT. GOWN AND ATTACHED TO [employer]RE[employer] OFFICER [place] [facility] [place] [employer] FOR CONTINUOUS MONITORING
[2020-08-25 13:43] LABS: INR 1.1 (0.9-1.1)
[2020-08-25] MEDS ORDERED: Azithromycin 500 MG in NS 275 ML IV ONE (13:45)
[2020-08-25] MEDS ORDERED: Vancomycin 1 GM in NS 275 ML IVPB ONE (13:45)
[2020-08-25] MEDS ORDERED: Aspirin Baby 81mg ORAL ONE (13:45)
[2020-08-25 13:46] VITALS: BP 91/58
--- NOTE | 2020-08-25 13:48 | NUR ---
ED Nurse Note: pt received from IVY Jennings. pt is rseting in bed, VSS on cardiac care unit nurse. US is at pt bedside for venous duplex of LE. pt has IV abx infusing into LAC IV site. no acute distress is noted at this time.
[2020-08-25 13:50] LABS: CALCIUM 8.2 MG/DL (8.5-10.1); POTASSIUM 4.3 MMOL/L (3.5-5.1)
[2020-08-25 14:00] LABS: ALBUMIN 3.4 G/DL (3.4-5.0); ALBUMIN/GLOBULIN RATIO 0.9 (1.0-2.7); BILIRUBIN,TOTAL 0.5 MG/DL (0.2-1.0)
[2020-08-25] MEDS ORDERED: Heparin 5000 units/ml inj IV ONE (14:15)
[2020-08-25] MEDS ORDERED: Heparin 25,000u/D5W 500ml 500 ML IV SCH (14:15)
[2020-08-25 15:30] VITALS: BP 88/55
--- NOTE | 2020-08-25 15:55 | NUR ---
ED Nurse Note: Dr. Rendon at pt bedside
--- NOTE | 2020-08-25 16:21 | Cardiac Electrophysiology PN ---
Subjective Subjective Seen in ER. CHF exacerbation EF 30% in 05/2020 and ARF with CR 1.2 increased to 3.0 since 8 Dictated [id number] Start Dobutamine drip and Lasix drip Objective Last 24 Hour Vital Signs Date Time Temp Pulse Resp B/P (MAP) Pulse Ox O2 Delivery O2 Flow Rate FiO2 08/25/20 15:30 66 18 88/55 100 Room Air 08/25/20 13:46 97.3 87 16 91/58 97 Room Air 08/25/20 12:45 67 16 Room Air 08/25/20 12:45 97.3 67 16 91/58 (69) 97 Room Air Laboratory Tests Test 08/25/20 13:11 White Blood Count 9.9 K/UL (4.8-10.8) Red Blood Count 3.66 M/UL (4.70-6.10) L Hemoglobin 10.1 G/DL (14.2-18.0) L Hematocrit 32.7 % (42.0-52.0) L Mean Corpuscular Volume 89 FL (80-99) Mean Corpuscular Hemoglobin 27.5 PG (27.0-31.0) Mean Corpuscular Hemoglobin Concent 30.9 G/DL (32.0-36.0) L Red Cell Distribution Width 22.7 % (11.6-14.8) H Platelet Count 241 K/UL (150-450) Mean Platelet Volume 7.0 FL (6.5-10.1) Neutrophils (%) (Auto) 78.2 % (45.0-75.0) H Lymphocytes (%) (Auto) 12.5 % (20.0-45.0) L Monocytes (%) (Auto) 8.6 % (1.0-10.0) Eosinophils (%) (Auto) 0.3 % (0.0-3.0) Basophils (%) (Auto) 0.5 % (0.0-2.0) Prothrombin Time 11.6 SEC (9.30-11.50) H Prothromb Time International Ratio 1.1 (0.9-1.1) Activated Partial Thromboplast Time 27 SEC (23-33) D-Dimer 1.60 mg/L FEU (0.00-0.49) H Sodium Level 135 MMOL/L (136-145) L Potassium Level 4.3 MMOL/L (3.5-5.1) Chloride Level 102 MMOL/L (98-107) Carbon Dioxide Level 18 MMOL/L (21-32) L Anion Gap 15 mmol/L (5-15) Blood Urea Nitrogen 51 mg/dL (7-18) H Creatinine 3.0 MG/DL (0.55-1.30) H Estimat Glomerular Filtration Rate 20.3 mL/min (>60) Glucose Level 114 MG/DL (74-106) H Calcium Level 8.2 MG/DL (8.5-10.1) L Magnesium Level 2.3 MG/DL (1.8-2.4) Total Bilirubin 0.5 MG/DL (0.2-1.0) Aspartate Amino Transf (AST/SGOT) 14 U/L (15-37) L Alanine Aminotransferase (ALT/SGPT) 14 U/L (12-78) Alkaline Phosphatase 101 U/L (46-116) Troponin I 0.129 ng/mL (0.000-0.056) Pro-B-Type Natriuretic Peptide 29103 pg/mL (0-125) H Total Protein 7.1 G/DL (6.4-8.2) Albumin 3.4 G/DL (3.4-5.0) Globulin 3.7 g/dL Albumin/Globulin Ratio 0.9 (1.0-2.7) L Microbiology Date/Time Source Procedure Growth Status 08/25/20 13:11 Nasopharynx SARS-CoV-2 RdRp Gene Assay - Final Complete Grabiel Montoya MD Aug 25, 2020 16:21
--- NOTE | 2020-08-25 16:28 | History and Physical ---
History of Present Illness General Date patient seen: Aug 25, 2020 Reason for Hospitalization: Dyspnea/Respdistress Present Illness HPI Andrae Davis is a 80-year-old male with PMH of HFrEF, HTN, HIV, IDDM, HLD who presents with SOB. He reports low salt and sugar intake. He reports dyspnea on exertion of only 1 block for past 1 month, no significant orthopnea, worsening BLE edema. He denies fever, chills, chest pain, N/V/D, sick contacts, COVID-19 contacts or symptoms. PAST MEDICAL HISTORY: Hypertension, HIV, AIDS, dyslipidemia, insulin-dependent diabetes mellitus. PSH: reports cyst surgery many years ago Family history: mother from diabetes complications SOCIAL HISTORY: Former smoker, quit 2-3 months ago, denies alcohol or substance use Allergies: Coded Allergies: No Known Allergies (Unverified , 06/03/20) COVID-19 Screening Contact w/high risk pt: No Recent Travel to affected area: No Experienced COVID-19 symptoms?: No Medication History Scheduled Atorvastatin Calcium* (Atorvastatin Calcium*), 20 MG ORAL BEDTIME, (Reported) Cyanocobalamin (Vitamin B-12) (Cyanocobalamin Injection), 1,000 MCG IJ EVERY MONTH, (Reported) Darunavir/Cobicistat (Prezcobix 800 mg-150 mg Tablet), 1 EACH PO DAILY, (Reported) Darunavir/Cobicistat (Prezcobix 800 mg-150 mg Tablet), 1 EACH PO DAILY, (Reported) Dolutegravir Sodium (Tivicay), 50 MG ORAL DAILY, (Reported) Furosemide* (Lasix*), 20 MG ORAL DAILY Loratadine (Claritin*), 10 MG PO DAILY, (Reported) Losartan Potassium* (Losartan Potassium*), 50 MG ORAL TWICE A DAY, (Reported) Metoprolol Tartrate (Metoprolol Tartrate), 25 MG ORAL Q12HR Naphazoline Hcl/Phenir Mal (Naphcon-A Eye Drops), 1-2 DROP OP 2-4 TIMES DAILY, (Reported) Omeprazole (Omeprazole), 20 MG ORAL DAILY, (Reported) Psyllium Husk (Metamucil), PO DAILY, (Reported) Sitagliptin Phos/Metformin Hcl (Janumet 50-1,000 Mg Tablet), 1 TAB ORAL TWICE A DAY, (Reported) Spironolactone (Aldactone), 25 MG ORAL DAILY Tamsulosin HCl (Flomax), 0.4 MG ORAL DAILY, (Reported) Testosterone Cypionate (Testosterone Cypionate), 200 MG IM EVERY TWO WEEKS, (Reported) Vitamin B Complex (B Complex), 1 TAB ORAL DAILY, (Reported) Scheduled PRN Melatonin (Melatonin 5 Mg Tablet), 1 TAB ORAL BEDTIME PRN for Insomnia, (Reported) Propylene Glycol/Peg 400 (Lubricating Eye Drop), 1-2 DROP OP THREE TIMES A DAY PRN for Dry Eyes, (Reported) Patient History History Provided By: Patient Healthcare decision maker Resuscitation status Advanced Directive on File Review of Systems ROS Narrative Constitutional: Denies: chills, sweats, fever Eye: Denies: eye pain, nose pain ENT: Denies: ear pain, throat pain Respiratory: Denies: cough, wheezing Cardiovascular: Denies: syncope Gastrointestinal: Denies: abdominal pain, constipation, diarrhea Genitourinary: Denies: dysuria, hematuria Musculoskeletal: Denies: joint pain, joint swelling Skin: Denies: rash, dryness Psychiatric: Denies: anxiety, hallucinations Neurological: Denies: numbness, paresthesia, focal weakness Endocrine: Denies: intolerance to temperature, unexplained weight loss Hematologic/Lymphatic: Denies: easy bleeding, easy bruising Physical Exam General Appearance: WD/WN, no apparent distress, alert HEENT: normocephalic, atraumatic, mucous membranes moist, supple Neck: non-tender, normal alignment, supple Respiratory/Chest: normal breath sounds, no respiratory distress, no accessory muscle use Cardiovascular/Chest: normal rate, regular rhythm Abdomen: normal bowel sounds, non tender, soft Extremities: normal range of motion, moderate edema Skin Exam: normal pigmentation, no diaphoresis Neurologic: 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 and beverage manager II-XII grossly normal, alert, oriented x 3 Last 24 Hour Vital Signs Date Time Temp Pulse Resp B/P (MAP) Pulse Ox O2 Delivery O2 Flow Rate FiO2 08/25/20 15:30 66 18 88/55 100 Room Air 08/25/20 13:46 97.3 87 16 91/58 97 Room Air 08/25/20 12:45 67 16 Room Air 08/25/20 12:45 97.3 67 16 91/58 (69) 97 Room Air Laboratory Tests Test 11/16/20 13:11 White Blood Count 9.9 K/UL (4.8-10.8) Red Blood Count 3.66 M/UL (4.70-6.10) L Hemoglobin 10.1 G/DL (14.2-18.0) L Hematocrit 32.7 % (42.0-52.0) L Mean Corpuscular Volume 89 FL (80-99) Mean Corpuscular Hemoglobin 27.5 PG (27.0-31.0) Mean Corpuscular Hemoglobin Concent 30.9 G/DL (32.0-36.0) L Red Cell Distribution Width 22.7 % (11.6-14.8) H Platelet Count 241 K/UL (150-450) Mean Platelet Volume 7.0 FL (6.5-10.1) Neutrophils (%) (Auto) 78.2 % (45.0-75.0) H Lymphocytes (%) (Auto) 12.5 % (20.0-45.0) L Monocytes (%) (Auto) 8.6 % (1.0-10.0) Eosinophils (%) (Auto) 0.3 % (0.0-3.0) Basophils (%) (Auto) 0.5 % (0.0-2.0) Prothrombin Time 11.6 SEC (9.30-11.50) H Prothromb Time International Ratio 1.1 (0.9-1.1) Activated Partial Thromboplast Time 27 SEC (23-33) D-Dimer 1.60 mg/L FEU (0.00-0.49) H Sodium Level 135 MMOL/L (136-145) L Potassium Level 4.3 MMOL/L (3.5-5.1) Chloride Level 102 MMOL/L (98-107) Carbon Dioxide Level 18 MMOL/L (21-32) L Anion Gap 15 mmol/L (5-15) Blood Urea Nitrogen 51 mg/dL (7-18) H Creatinine 3.0 MG/DL (0.55-1.30) H Estimat Glomerular Filtration Rate 20.3 mL/min (>60) Glucose Level 114 MG/DL (74-106) H Calcium Level 8.2 MG/DL (8.5-10.1) L Magnesium Level 2.3 MG/DL (1.8-2.4) Total Bilirubin 0.5 MG/DL (0.2-1.0) Aspartate Amino Transf (AST/SGOT) 14 U/L (15-37) L Alanine Aminotransferase (ALT/SGPT) 14 U/L (12-78) Alkaline Phosphatase 101 U/L (46-116) Troponin I 0.129 ng/mL (0.000-0.056) Pro-B-Type Natriuretic Peptide 32959 pg/mL (0-125) H Total Protein 7.1 G/DL (6.4-8.2) Albumin 3.4 G/DL (3.4-5.0) Globulin 3.7 g/dL Albumin/Globulin Ratio 0.9 (1.0-2.7) L Microbiology Date/Time Source Procedure Growth Status 08/25/20 13:11 Nasopharynx SARS-CoV-2 RdRp Gene Assay - Final Complete Height (Feet): 5 Height (Inches): 5.00 Weight (Pounds): 152 Medications Current Medications Medications (Trade) Dose Ordered Sig/[place] Route PRN Reason Start Time Stop Time Status Last Admin Dose Admin Dobutamine HCl 250 ml @ 0 mls/hr Q24H IV 08/25/20 16:30 08/28/20 16:29 UNV Furosemide (Lasix) 40 mg EVERY 6 HOURS IV 08/25/20 18:00 09/24/20 17:59 Heparin Sodium/ Dextrose 500 ml @ 16.547 mls/ hr ADJUST PER PROTOCOL IV 08/25/20 14:15 09/24/20 14:14 08/25/20 14:39 Assessment/Plan Assessment/Plan: #Acute decompensated HFrEF exacerbation #Troponin elevation #HTN #[place] [address], even higher than previous. Patient not taking diuretic at home. Denies dietary indiscretion. EF 30% as of 05/2020. Troponin leak likely due to CHF. Incomplete LBBB seen on EKG today. - IV Lasix - dobutamine drip - avoid beta jazz and antihypertensive meds for now - Telemetry - BMP, replete lytes PRN - Cardiology consult Dr. Montoya, recs appreciated #Acute renal failure Elevated BUN and Cr on admission. Baseline normal. #HIV On HAART. - resume meds #HLD - resume Lipitor Diet: cardiac DVT ppx: heparin subQ Code status: Full I spent 68 minutes on this patient's case, and 35 minutes was dedicated to counseling and/or care coordination with RN, case assembler, consulting MD team I spent an additional 37 minutes on review of medical records including prior outside hospital records, consult notes, progress notes, procedures, imaging, labs, hemodynamics, and other clinical documentation. Time of note may not reflect time patient was seen. Daniel Cowart M.D. Aug 25, 2020 16:28
--- NOTE | 2020-08-25 16:28 | Diagnostic Imaging Report ---
Indication:Leg pain and swelling Technique: Grayscale and duplex Doppler imaging of the veins in both lower extremities performed in real time utilizing compression and augmentation. Comparison: Lower extremity venous Doppler study dated 06/05/2020 Findings: Duplex Doppler interrogation of the veins in both lower extremity is performed from the common femoral vein to the popliteal vein. Normal venous compressibility demonstrated throughout. No thrombus identified. Waveform analysis shows good respiratory phasicity and augmentation. There is mild to moderate subcutaneous soft tissue edema in both calves. IMPRESSION: No evidence of deep venous thrombosis involving the lower extremities.
--- NOTE | 2020-08-25 17:00 | NUR ---
ED Nurse Note: pt transported to VQ scan via wheelchair. heparin drip paused, will resume when pt returns and continue to prepare for admission
--- NOTE | 2020-08-25 17:56 | NUR ---
ED Nurse Note: Recieved report from IVY Majano. Patient is resting in the bed, VSS at this time, NAD noted. Patient aware of admition, waiting for bed. Heparin running at rate 16.54 ml/hr.
--- NOTE | 2020-08-25 18:29 | Diagnostic Imaging Report ---
EXAM: NM Lung Perfusion and Ventilation Scan CLINICAL HISTORY: SOB TECHNIQUE: Nuclear Medicine ventilation and perfusion images of the lungs were obtained in multiple projections following radiopharmaceutical inhalation followed by injection of [id number] MAA. COMPARISON: Correlation is made to chest radiograph on 08/25/2020 FINDINGS: Ventilation: Radiotracer seen more prominently in the central airways with decreased radiotracer in the lung parenchyma. Perfusion: No concerning perfusion defects. IMPRESSION: 1. No definite concerning perfusion defects to suggest pulmonary embolus. 2. Radiotracer deposition in the central airways on ventilation images, suggesting COPD.
--- NOTE | 2020-08-25 18:30 | Consultation ---
DATE OF CONSULTATION: 08/25/2020 CARDIOLOGY CONSULTATION CONSULTING PHYSICIAN: Grabiel Montoya MD REFERRING PHYSICIAN: Og Dhillon MD REASON FOR CONSULTATION: Exacerbation of congestive heart failure. HISTORY OF PRESENT ILLNESS: Patient is a 80-year-old gentleman with history of hypertension and diabetes and hyperlipidemia as well as history of congestive heart failure with ejection fraction of 30 to 35% based on echocardiogram in May of 2020 at [facility]. Patient has history of HIV and AIDS. Patient presented to emergency room with increasing shortness of breath and lower extremity edema, also had substernal chest discomfort that is worse with exertion. Patient denies any fever or chills, or nausea or vomiting, or diaphoresis. His 12-lead EKG shows sinus rhythm with incomplete left bundle-branch block and inversion suggestive of lateral ischemia. REVIEW OF SYSTEMS: Negative other than what was mentioned in the history of present illness. PAST MEDICAL HISTORY: As mentioned above. FAMILY HISTORY: Noncontributory. SOCIAL HISTORY: He lives at home. Does not smoke or drink alcohol. PHYSICAL EXAMINATION: VITAL SIGNS: Show blood pressure of 88/55, pulse is 66, respirations 18, temperature 97.3. HEAD AND NECK: Shows mild JVD. LUNGS: Coarse rhonchi. CARDIOVASCULAR: Shows regular S1 and S2 with no gallop. ABDOMEN: Soft. EXTREMITIES: 2+ bilateral pitting edema. LABORATORY AND DIAGNOSTIC DATA: His labs show white count of 9.9, hemoglobin of 10.1, hematocrit 32.2, platelet count 241. Sodium is 135, potassium 4.3, BUN of 51, creatinine of 3.0, glucose of 114. His BNP is 21,000, which is 3 times higher than previous BNP in May of 2020. Troponin is 0.129. ASSESSMENT AND PLAN: 1. Exacerbation of congestive heart failure with ejection fraction of 30%. Patient is also in acute renal failure with BUN of 51 and creatinine of 3.0 and BNP of 22,000. We will repeat the echocardiogram. Start the patient on dobutamine as well as Lasix drip. Hold off on Coreg, lisinopril, and Aldactone in view of starting dobutamine as well as patient's acute renal failure. 2. Troponin elevation, could be due to patient's renal failure with creatinine of 3.5. Avoid TONY inhibitor or angiotensin receptor blockers. 3. Acute renal failure. Again, the creatinine was 1.2 on 06/06/2020 and today it is 3.0, likely due to cardiorenal syndrome. 4. Hypertension. At this time, just keep him on Lasix and dobutamine. 5. Incomplete left bundle-branch block. At some point, patient would need ischemic evaluation, but at this time, patient congestive heart failure with a creatinine of 3 and is not a candidate for cardiac catheterization. 6. HIV. Patient is on anti-retroviral therapy including Prezcobix and Tivicay. Thank you very much for allowing me to participate in the care of this patient. Please do not hesitate to contact me for any questions regarding my evaluation. Grabiel Montoya M.D. DR: SUSANA JOB#: [id number] CC:
[2020-08-25] MEDS ORDERED: DOBUTamine 250mg/250ml Premix 250 ML IV SCH (19:00)
--- NOTE | 2020-08-25 20:10 | NUR ---
NURSE NOTES: Received report from IVY Diaz (ER) that pt will be transferred to 2E Telemetry floor in bed 201-2.
--- NOTE | 2020-08-25 20:25 | NUR ---
TRANSFER TO FLOOR: Patient transferred to TELE 201-2 as ordered, per MIGUEL HAYNES. Report given to BETTY HAYNES. PATIENT STABLE FOR TRANSPORT. TRANSFERRED TO UNIT VIA GURNEY WITH RN AND ERTSURINDER. BELONGINGS AND ADMISSION PACKET SENT WITH PATIENT.
[2020-08-25 20:30] VITALS: BP 92/54
--- NOTE | 2020-08-25 20:30 | NUR ---
NURSE NOTES: Received pt via gurney with 2 RNs from ER; noted with belongings and intake paperworks; placed in chart; pt ambulated from gurney to bed with supervision; noted with R forearm 18 gauge with heparin drip infusing and L AC 18 gauge saline locked; monitor and storage bin tender placed on pt; bed locked and in low position, call light within reach; side rails x 2; offered urinal and snacks. Will continue to monitor.
[2020-08-25] MEDS: NovoLOG Insulin Flexpen SUBQ SCH (21:29)
[2020-08-26] VITALS: BP 111/72
[2020-08-26 04:00] VITALS: BP 105/70
[2020-08-26] MEDS: NovoLOG Insulin Flexpen SUBQ SCH ×4 (05:54→21:00)
[2020-08-26 06:25] LABS: BASOPHILS % (AUTO) 0.8 % (0.0-2.0); EOSINOPHILS % (AUTO) 0.7 % (0.0-3.0); HEMATOCRIT 29.3 % (42.0-52.0); HEMOGLOBIN 9.4 G/DL (14.2-18.0); LYMPHOCYTES % (AUTO) 22.7 % (20.0-45.0); MEAN CORPUSCULAR VOLUME 87 FL (80-99); MONOCYTES % (AUTO) 11.7 % (1.0-10.0); NEUTROPHILS % (AUTO) 64.2 % (45.0-75.0); PLATELET COUNT 248 K/UL (150-450); RED BLOOD COUNT 3.37 M/UL (4.70-6.10); RED CELL DISTRIBUTION WIDTH 22.9 % (11.6-14.8); WHITE BLOOD COUNT 8.1 K/UL (4.8-10.8)
[2020-08-26 07:09] LABS: CALCIUM 8.3 MG/DL (8.5-10.1); CREATININE 2.5 MG/DL (0.55-1.30); POTASSIUM 3.4 MMOL/L (3.5-5.1)
--- NOTE | 2020-08-26 07:20 | NUR ---
NURSE HAND-OFF REPORT: Important Events on Shift: Admitted to the unit from ER around 2029; on dobutamine drip @ 5 mcg/kg/min @ 20.684 ml/hr; lasix IV push @ 2000 held d/t low BP; accuchecks ac/hs Patient Status: AOX4 Diet: CARDIAC DIET Pending Orders: N/A Pending Results/Labs: morning labs Pending MD notification: n/a Latest Vital Signs: Temperature 98.9 , Pulse 76 , B/P 105 /70 , Respiratory Rate 20 , O2 SAT 96 , Room Air, O2 Flow Rate . Vital Sign Comment: [] EKG Rhythm: Sinus Rhythm Rhythm change?: N MD Notified?: - MD Response: Latest Davis Fall Score: 30 Fall Risk: Medium Risk Safety Measures: Call light Within Reach, Bed Alarm Zone 1, Side Rails Side Rails x3, Bed position Low and Locked. Fall Precautions: Yellow Socks Yellow Gown Patient Fall Education Report given to IVY Dowd.
--- NOTE | 2020-08-26 07:21 | Cardiac Electrophysiology PN ---
Assessment/Plan Assessment/Plan 1. Exacerbation of congestive heart failure with ejection fraction of 30%. Patient is also in acute renal failure with BUN of 51 and creatinine of 3.0 and BNP of 22,000. Repeat echocardiogram is pending. Continue dobutamine drip and Lasix 40 iv q 6. Hold off on Coreg, lisinopril, and Aldactone in view of starting dobutamine as well as acute renal failure. 2. Troponin elevation, could be due to patient's renal failure with creatinine of 3.5. 3. Acute renal failure. Again, the creatinine was 1.2 on 06/06/2020 and today it is 3.0, likely due to cardiorenal syndrome.Avoid ACEI and ARB Cr improved to 2.5 on Dobutamine and iv LAsix 4. Hypertension. At this time, just keep him on Lasix and dobutamine. 5. Incomplete left bundle-branch block. At some point, patient would need ischemic evaluation, but at this time, patient in congestive heart failure with a creatinine of 3 and is not a candidate for cardiac catheterization. 6. HIV. Patient is on anti-retroviral therapy including Prezcobix and Tivicay. MILY RN Subjective Subjective CHF exacerbation EF 30% in 05/2020 and ARF with CR 1.2 increased to 3.0 since 8 Feeling better on Dobutamine drip at 5 and Lasix 40 iv q 6 hr Objective Last 24 Hour Vital Signs Date Time Temp Pulse Resp B/P (MAP) Pulse Ox O2 Delivery O2 Flow Rate FiO2 08/26/20 04:00 76 08/26/20 04:00 98.9 86 20 105/70 (82) 96 08/26/20 00:00 98.8 84 20 111/72 (85) 97 08/25/20 21:34 92/54 08/25/20 21:30 76 08/25/20 21:00 Room Air 08/25/20 20:30 96.3 78 20 92/54 (67) 97 08/25/20 20:25 97.3 67 18 101/53 100 Room Air 08/25/20 15:30 66 18 88/55 100 Room Air 08/25/20 13:46 97.3 87 16 91/58 97 Room Air 08/25/20 12:45 67 16 Room Air 08/25/20 12:45 97.3 67 16 91/58 (69) 97 Room Air Intake and Output 08/25/20 08/26/20 19:00 07:00 Output Total 0 ml 1100 ml Balance 0 ml -1100 ml Output Urine Total 0 ml 1100 ml # Voids 2 # Bowel Movements 2 Laboratory Tests Test 08/25/20 13:11 08/25/20 21:27 08/26/20 05:53 08/26/20 06:00 White Blood Count 9.9 K/UL (4.8-10.8) 8.1 K/UL (4.8-10.8) Red Blood Count 3.66 M/UL (4.70-6.10) L 3.37 M/UL (4.70-6.10) L Hemoglobin 10.1 G/DL (14.2-18.0) L 9.4 G/DL (14.2-18.0) L Hematocrit 32.7 % (42.0-52.0) L 29.3 % (42.0-52.0) L Mean Corpuscular Volume 89 FL (80-99) 87 FL (80-99) Mean Corpuscular Hemoglobin 27.5 PG (27.0-31.0) 27.9 PG (27.0-31.0) Mean Corpuscular Hemoglobin Concent 30.9 G/DL (32.0-36.0) L 32.1 G/DL (32.0-36.0) Red Cell Distribution Width 22.7 % (11.6-14.8) H 22.9 % (11.6-14.8) H Platelet Count 241 K/UL (150-450) 248 K/UL (150-450) Mean Platelet Volume 7.0 FL (6.5-10.1) 7.0 FL (6.5-10.1) Neutrophils (%) (Auto) 78.2 % (45.0-75.0) H 64.2 % (45.0-75.0) Lymphocytes (%) (Auto) 12.5 % (20.0-45.0) L 22.7 % (20.0-45.0) Monocytes (%) (Auto) 8.6 % (1.0-10.0) 11.7 % (1.0-10.0) H Eosinophils (%) (Auto) 0.3 % (0.0-3.0) 0.7 % (0.0-3.0) Basophils (%) (Auto) 0.5 % (0.0-2.0) 0.8 % (0.0-2.0) Prothrombin Time 11.6 SEC (9.30-11.50) H Prothromb Time International Ratio 1.1 (0.9-1.1) Activated Partial Thromboplast Time 27 SEC (23-33) D-Dimer 1.60 mg/L FEU (0.00-0.49) H Sodium Level 135 MMOL/L (136-145) L 139 MMOL/L (136-145) Potassium Level 4.3 MMOL/L (3.5-5.1) 3.4 MMOL/L (3.5-5.1) L Chloride Level 102 MMOL/L (98-107) 106 MMOL/L (98-107) Carbon Dioxide Level 18 MMOL/L (21-32) L 21 MMOL/L (21-32) Anion Gap 15 mmol/L (5-15) 12 mmol/L (5-15) Blood Urea Nitrogen 51 mg/dL (7-18) H 47 mg/dL (7-18) H Creatinine 3.0 MG/DL (0.55-1.30) H 2.5 MG/DL (0.55-1.30) H Estimat Glomerular Filtration Rate 20.3 mL/min (>60) 25.1 mL/min (>60) Glucose Level 114 MG/DL (74-106) H 84 MG/DL (74-106) Calcium Level 8.2 MG/DL (8.5-10.1) L 8.3 MG/DL (8.5-10.1) L Magnesium Level 2.3 MG/DL (1.8-2.4) Total Bilirubin 0.5 MG/DL (0.2-1.0) Aspartate Amino Transf (AST/SGOT) 14 U/L (15-37) L Alanine Aminotransferase (ALT/SGPT) 14 U/L (12-78) Alkaline Phosphatase 101 U/L (46-116) Troponin I 0.129 ng/mL (0.000-0.056) Pending Pro-B-Type Natriuretic Peptide 59804 pg/mL (0-125) H Pending Total Protein 7.1 G/DL (6.4-8.2) Albumin 3.4 G/DL (3.4-5.0) Globulin 3.7 g/dL Albumin/Globulin Ratio 0.9 (1.0-2.7) L POC Whole Blood Glucose 304 MG/DL (74-106) H 86 MG/DL (74-106) Thyroid Stimulating Hormone (TSH) Pending Microbiology Date/Time Source Procedure Growth Status 08/25/20 13:11 Nasopharynx SARS-CoV-2 RdRp Gene Assay - Final Complete Objective HEAD AND NECK: Mild JVD. LUNGS: Coarse rhonchi. CARDIOVASCULAR: regular S1 and S2 with no gallop. ABDOMEN: Soft. EXTREMITIES: 2+ bilateral pitting edema. Grabiel Montoya MD Aug 26, 2020 07:21
--- NOTE | 2020-08-26 07:55 | NUR ---
NURSE NOTES: Dr Nelson is aware about K 3.4 and troponin 0.238, waiting to call back. will continue to monitor.
[2020-08-26 08:00] VITALS: BP 100/56
--- NOTE | 2020-08-26 08:05 | NUR ---
NURSE NOTES: Received patient report from IVY Plunkett. Received patient in bed, awake. Patient is alert and oriented x4 citizen of [place] speaking but understands [place]anish. Breathing is even and unlabored with no signs of respiratory distress. No pain or discomfort noted at this time. Patient with RFA 18G and L AC 18G patent and intact with no signs of infiltration at this time. Bed in lowest position, locked with bed alarm. Call light within reach.
--- NOTE | 2020-08-26 08:07 | NUR ---
NURSE NOTES: Dr Nelson called back regarding K and troponin, MD will F/U. No new order received. will continue to monitor.
--- NOTE | 2020-08-26 08:15 | NUR ---
NURSE NOTES: Dr Nelson called back and ordered repeat troponin and kcl 40meq po once, noted and carried out.
[2020-08-26] MEDS: Heparin 5000 units/ml inj SUBQ SCH ×2 (08:58→21:12)
--- NOTE | 2020-08-26 09:20 | General Progress Note ---
Subjective Constitutional: Denies: no symptoms, chills, diaphoresis, fever, malaise, weakness, other HEENT: Denies: no symptoms, eye pain, blurred vision, tearing, double vision, ear pain, ear discharge, nose pain, nose congestion, throat pain, throat swelling, mouth pain, mouth swelling, other Cardiovascular: Denies: no symptoms, chest pain, edema, irregular heart rate, lightheadedness, palpitations, syncope, other Respiratory: Denies: no symptoms, cough, orthopnea, shortness of breath, SOB with excertion, SOB at rest, sputum, stridor, wheezing, other Gastrointestinal/Abdominal: Denies: no symptoms, abdomen distended, abdominal pain, black stools, tarry stools, blood in stool, constipated, diarrhea, difficulty swallowing, nausea, poor appetite, poor fluid intake, rectal bleeding, vomiting, other Genitourinary: Denies: no symptoms, burning, discharge, frequency, flank pain, hematuria, incontinence, pain, urgency, other Neurologic/Psychiatric: Denies: no symptoms, anxiety, depressed, emotional problems, headache, numbness, paresthesia, pre-existing deficit, seizure, tingling, tremors, weakness, other Endocrine: Denies: no symptoms, excessive sweating, flushing, intolerance to cold, intolerance to heat, increased hunger, increased thirst, increased urine, unexplained weight gain, unexplained weight loss, other Hematologic/Lymphatic: Denies: no symptoms, anemia, easy bleeding, easy bruising, other Allergies: Coded Allergies: No Known Allergies (Unverified , 06/03/20) Subjective No acute events overnight. Patient feels shortness of breath has improved. On room air. Persistent bilateral peripheral edema. No new complaints Objective Last 24 Hour Vital Signs Date Time Temp Pulse Resp B/P (MAP) Pulse Ox O2 Delivery O2 Flow Rate FiO2 08/26/20 08:00 98.7 81 18 100/56 (71) 98 08/26/20 04:00 76 08/26/20 04:00 98.9 86 20 105/70 (82) 96 08/26/20 00:00 98.8 84 20 111/72 (85) 97 08/25/20 21:34 92/54 08/25/20 21:30 76 08/25/20 21:00 Room Air 08/25/20 20:30 96.3 78 20 92/54 (67) 97 08/25/20 20:25 97.3 67 18 101/53 100 Room Air 08/25/20 15:30 66 18 88/55 100 Room Air 08/25/20 13:46 97.3 87 16 91/58 97 Room Air 08/25/20 12:45 67 16 Room Air 08/25/20 12:45 97.3 67 16 91/58 (69) 97 Room Air Intake and Output 08/25/20 08/26/20 19:00 07:00 Output Total 0 ml 1100 ml Balance 0 ml -1100 ml Output Urine Total 0 ml 1100 ml # Voids 2 # Bowel Movements 2 Laboratory Tests 08/25/20 13:11: White Blood Count 9.9, Red Blood Count 3.66L, Hemoglobin 10.1L, Hematocrit 32.7L , Mean Corpuscular Volume 89, Mean Corpuscular Hemoglobin 27.5, Mean Corpuscular Hemoglobin Concent 30.9L, Red Cell Distribution Width 22.7H, Platelet Count 241, Mean Platelet Volume 7.0, Neutrophils (%) (Auto) 78.2H, Lymphocytes (%) (Auto) 12.5L, Monocytes (%) (Auto) 8.6, Eosinophils (%) (Auto) 0.3, Basophils (%) (Auto) 0.5, Prothrombin Time 11.6H, Prothromb Time International Ratio 1.1, Activated Partial Thromboplast Time 27, D-Dimer 1.60H, Sodium Level 135L, Potassium Level 4.3, Chloride Level 102, Carbon Dioxide Level 18L, Anion Gap 15, Blood Urea Nitrogen 51H, Creatinine 3.0H, Estimat Glomerular Filtration Rate 20.3, Glucose Level 114H, Calcium Level 8.2L, Magnesium Level 2.3, Total Saad irubin 0.5, Aspartate Amino Transf (AST/SGOT) 14L, Alanine Aminotransferase (ALT/SGPT) 14, Alkaline Phosphatase 101, Troponin I 0.129H, Pro-B-Type Natriuretic Peptide 03805X, Total Protein 7.1, Albumin 3.4, Globulin 3.7, Albumin/Globulin Ratio 0.9L 08/25/20 21:27: POC Whole Blood Glucose 304H 08/26/20 05:53: POC Whole Blood Glucose 86 08/26/20 06:00: White Blood Count 8.1, Red Blood Count 3.37L, Hemoglobin 9.4L, Hematocrit 29.3L, Mean Corpuscular Volume 87, Mean Corpuscular Hemoglobin 27.9, Mean Corpuscular Hemoglobin Concent 32.1, Red Cell Distribution Width 22.9H, Platelet Count 248, Mean Platelet Volume 7.0, Neutrophils (%) (Auto) 64.2, Lymphocytes (%) (Auto) 22.7, Monocytes (%) (Auto) 11.7H, Eosinophils (%) (Auto) 0.7, Basophils (%) (Auto) 0.8, Sodium Level 139, Potassium Level 3.4L, Chloride Level 106, Carbon Dioxide Level 21, Anion Gap 12, Blood Urea Nitrogen 47H, Creatinine 2.5H, Estimat Glomerular Filtration Rate 25.1, Glucose Level 84, Calcium Level 8.3L, Troponin I 0.238H, Pro-B-Type Natriuretic Peptide [id number], Thyroid Stimulating Hormone (TSH) 1.967 08/26/20 09:07: Troponin I [Pending] Height (Feet): 5 Height (Inches): 5.00 Weight (Pounds): 152 General Appearance: no apparent distress, alert, alert oriented x3 EENT: PERRL/EOMI Neck: non-tender, normal alignment Cardiovascular: normal rate, regular rhythm, no JVD Respiratory/Chest: lungs clear, normal breath sounds Abdomen: normal bowel sounds, non tender, soft Extremities: normal range of motion, non-tender Edema: moderate edema Neurologic: bit gatherer II-XII grossly normal, alert, oriented x 3 Assessment/Plan Assessment/Plan: Andrae Davis is a 80-year-old male with PMH of HFrEF, HTN, HIV, IDDM, HLD who presents with SOB. # Acute on chronic decompensated HFrEFhypervolemic # NSTEMI type I versus type II # AHSAN versus AHSAN on CKD 2/2 cardiorenal syndrome versus ATN # Pulmonary hypertension likely class II # History of HIV on HHART # Hyperlipidemia # Normocytic anemia 2/2ACD versus IDC versus CKD # Troponin elevation # HTN # Incomplete LBBB P: -Continue dopamine supplementation for hemodynamics per cardiology Continue Lasix IV twice daily 40 mg Echo showing diffuse global hypokinesia, EF 30 to 35%, RSVP 65 Troponin uptrending, continue to trend for now defer heparin to cardiology Hold beta-blockers and TONY/ARB/Arni until patient more euvolemic and AHSAN resolved Monitor renal function Monitor lytes Keep potassium > 4, magnesium > 2 Strict I's and O's Fluid restriction to 1500 mL/day Daily weights Continue HHART meds follow-up: Iron panel, ferritin, B12, folic acid - Cardiology consult Dr. Montoya, recs appreciated Nephrology consult Dr. Gupta, recs appreciated CODE: Full Diet: cardiac DVT ppx: heparin subQ GI: Famotidine Dispo: Resolution of acute exacerbation of heart failure Time spent on this encounter was 45 minutes which included 25 minutes of counseling and care coordination. I discussed with the nurse at bedside and nephrology, tankroom worker. Time of note may not reflect time patient was seen. Luis Nelson D.O Aug 26, 2020 09:20
--- NOTE | 2020-08-26 09:55 | NUR ---
NURSE NOTES: Dr Marquis is aware about troponin 0.238 and 0.259 and Echo EF 20-25% with severe pulmonary HTN, waiting to call back. will continue to monitor.
--- NOTE | 2020-08-26 10:05 | NUR ---
NURSE NOTES: Dr Marquis called back and ordered do not call for troponin less than 1, noted and carried out. will continue to monitor.
--- NOTE | 2020-08-26 11:00 | NUR ---
NURSE NOTES: from 0700 till 1100, previous bag hadn't finished yet and iv dobutamine was running per order.
[2020-08-26] MEDS ORDERED: DOBUTamine 250mg/250ml Premix 250 ML IV SCH ×2 (11:15→21:07)
[2020-08-26 12:00] VITALS: BP 91/44
--- NOTE | 2020-08-26 13:02 | Consultation ---
History of Present Illness General Chief Complaint: Dyspnea/Respdistress Reason for Consultation: Ahsan, cardiorenal syndrome Present Illness HPI tone Davis is a 80-year-old male with PMH of HFrEF, HTN, HIV, IDDM, HLD who presents with SOB. He reports low salt and sugar intake. He reports dyspnea on exertion of only 1 block for past 1 month, no significant orthopnea, worsening BLE edema. He denies fever, chills, chest pain, N/V/D, sick contacts, COVID-19 contacts or symptoms. PAST MEDICAL HISTORY: Hypertension, HIV, AIDS, dyslipidemia, insulin-dependent diabetes mellitus. PSH: reports cyst surgery many years ago Family history: mother from diabetes complications SOCIAL HISTORY: Former smoker, quit 2-3 months ago, denies alcohol or substance use Allergies: Coded Allergies: No Known Allergies (Unverified , 06/03/20) Medication History Scheduled Atorvastatin Calcium* (Atorvastatin Calcium*), 20 MG ORAL BEDTIME, (Reported) Cyanocobalamin (Vitamin B-12) (Cyanocobalamin Injection), 1,000 MCG IJ EVERY MONTH, (Reported) Darunavir/Cobicistat (Prezcobix 800 mg-150 mg Tablet), 1 EACH PO DAILY, (Reported) Darunavir/Cobicistat (Prezcobix 800 mg-150 mg Tablet), 1 EACH PO DAILY, (Reported) Dolutegravir Sodium (Tivicay), 50 MG ORAL DAILY, (Reported) Furosemide* (Lasix*), 20 MG ORAL DAILY Loratadine (Claritin*), 10 MG PO DAILY, (Reported) Losartan Potassium* (Losartan Potassium*), 50 MG ORAL TWICE A DAY, (Reported) Metoprolol Tartrate (Metoprolol Tartrate), 25 MG ORAL Q12HR Naphazoline Hcl/Phenir Mal (Naphcon-A Eye Drops), 1-2 DROP OP 2-4 TIMES DAILY, (Reported) Omeprazole (Omeprazole), 20 MG ORAL DAILY, (Reported) Psyllium Husk (Metamucil), PO DAILY, (Reported) Sitagliptin Phos/Metformin Hcl (Janumet 50-1,000 Mg Tablet), 1 TAB ORAL TWICE A DAY, (Reported) Spironolactone (Aldactone), 25 MG ORAL DAILY Tamsulosin HCl (Flomax), 0.4 MG ORAL DAILY, (Reported) Testosterone Cypionate (Testosterone Cypionate), 200 MG IM EVERY TWO WEEKS, (Reported) Vitamin B Complex (B Complex), 1 TAB ORAL DAILY, (Reported) Scheduled PRN Melatonin (Melatonin 5 Mg Tablet), 1 TAB ORAL BEDTIME PRN for Insomnia, (Reported) Propylene Glycol/Peg 400 (Lubricating Eye Drop), 1-2 DROP OP THREE TIMES A DAY PRN for Dry Eyes, (Reported) Patient History Healthcare decision maker N Resuscitation status Advanced Directive on File Review of Systems All Other Systems: negative except mentioned in HPI Physical Exam General Appearance: no apparent distress Lines, tubes and drains: peripheral HEENT: normocephalic, atraumatic Neck: non-tender, normal alignment Respiratory/Chest: chest wall non-tender, lungs clear Cardiovascular/Chest: normal peripheral pulses, normal rate Abdomen: normal bowel sounds, non tender, soft Neurologic: alert, oriented x 3 Last 24 Hour Vital Signs Date Time Temp Pulse Resp B/P (MAP) Pulse Ox O2 Delivery O2 Flow Rate FiO2 08/26/20 12:00 97.7 85 18 91/44 (60) 100 08/26/20 11:10 94/46 08/26/20 09:00 Room Air 08/26/20 08:00 98.7 81 18 100/56 (71) 98 08/26/20 07:53 87 08/26/20 04:00 76 08/26/20 04:00 98.9 86 20 105/70 (82) 96 08/26/20 00:00 98.8 84 20 111/72 (85) 97 08/25/20 21:34 92/54 08/25/20 21:30 76 08/25/20 21:00 Room Air 08/25/20 20:30 96.3 78 20 92/54 (67) 97 08/25/20 20:25 97.3 67 18 101/53 100 Room Air 08/25/20 15:30 66 18 88/55 100 Room Air 08/25/20 13:46 97.3 87 16 91/58 97 Room Air Intake and Output 08/25/20 08/26/20 19:00 07:00 Output Total 0 ml 1100 ml Balance 0 ml -1100 ml Output Urine Total 0 ml 1100 ml # Voids 2 # Bowel Movements 2 Laboratory Tests Test 08/25/20 13:11 11/16/20 21:27 08/26/20 05:53 08/26/20 06:00 White Blood Count 9.9 K/UL (4.8-10.8) 8.1 K/UL (4.8-10.8) Red Blood Count 3.66 M/UL (4.70-6.10) L 3.37 M/UL (4.70-6.10) L Hemoglobin 10.1 G/DL (14.2-18.0) L 9.4 G/DL (14.2-18.0) L Hematocrit 32.7 % (42.0-52.0) L 29.3 % (42.0-52.0) L Mean Corpuscular Volume 89 FL (80-99) 87 FL (80-99) Mean Corpuscular Hemoglobin 27.5 PG (27.0-31.0) 27.9 PG (27.0-31.0) Mean Corpuscular Hemoglobin Concent 30.9 G/DL (32.0-36.0) L 32.1 G/DL (32.0-36.0) Red Cell Distribution Width 22.7 % (11.6-14.8) H 22.9 % (11.6-14.8) H Platelet Count 241 K/UL (150-450) 248 K/UL (150-450) Mean Platelet Volume 7.0 FL (6.5-10.1) 7.0 FL (6.5-10.1) Neutrophils (%) (Auto) 78.2 % (45.0-75.0) H 64.2 % (45.0-75.0) Lymphocytes (%) (Auto) 12.5 % (20.0-45.0) L 22.7 % (20.0-45.0) Monocytes (%) (Auto) 8.6 % (1.0-10.0) 11.7 % (1.0-10.0) H Eosinophils (%) (Auto) 0.3 % (0.0-3.0) 0.7 % (0.0-3.0) Basophils (%) (Auto) 0.5 % (0.0-2.0) 0.8 % (0.0-2.0) Prothrombin Time 11.6 SEC (9.30-11.50) H Prothromb Time International Ratio 1.1 (0.9-1.1) Activated Partial Thromboplast Time 27 SEC (23-33) D-Dimer 1.60 mg/L FEU (0.00-0.49) H Sodium Level 135 MMOL/L (136-145) L 139 MMOL/L (136-145) Potassium Level 4.3 MMOL/L (3.5-5.1) 3.4 MMOL/L (3.5-5.1) L Chloride Level 102 MMOL/L (98-107) 106 MMOL/L (98-107) Carbon Dioxide Level 18 MMOL/L (21-32) L 21 MMOL/L (21-32) Anion Gap 15 mmol/L (5-15) 12 mmol/L (5-15) Blood Urea Nitrogen 51 mg/dL (7-18) H 47 mg/dL (7-18) H Creatinine 3.0 MG/DL (0.55-1.30) H 2.5 MG/DL (0.55-1.30) H Estimat Glomerular Filtration Rate 20.3 mL/min (>60) 25.1 mL/min (>60) Glucose Level 114 MG/DL (74-106) H 84 MG/DL (74-106) Calcium Level 8.2 MG/DL (8.5-10.1) L 8.3 MG/DL (8.5-10.1) L Magnesium Level 2.3 MG/DL (1.8-2.4) Total Bilirubin 0.5 MG/DL (0.2-1.0) Aspartate Amino Transf (AST/SGOT) 14 U/L (15-37) L Alanine Aminotransferase (ALT/SGPT) 14 U/L (12-78) Alkaline Phosphatase 101 U/L (46-116) Troponin I 0.129 ng/mL (0.000-0.056) 0.238 ng/mL (0.000-0.056) Pro-B-Type Natriuretic Peptide 91791 pg/mL (0-125) H 54671 pg/mL (0-125) H Total Protein 7.1 G/DL (6.4-8.2) Albumin 3.4 G/DL (3.4-5.0) Globulin 3.7 g/dL Albumin/Globulin Ratio 0.9 (1.0-2.7) L POC Whole Blood Glucose 304 MG/DL (74-106) H 86 MG/DL (74-106) Thyroid Stimulating Hormone (TSH) 1.967 uiU/mL (0.358-3.740) Test 08/26/20 09:07 08/26/20 11:49 Troponin I 0.259 ng/mL (0.000-0.056) POC Whole Blood Glucose 99 MG/DL (74-106) Microbiology Date/Time Source Procedure Growth Status 08/25/20 13:11 Nasopharynx SARS-CoV-2 RdRp Gene Assay - Final Complete Height (Feet): 5 Height (Inches): 5.00 Weight (Pounds): 152 Medications Current Medications Medications (Trade) Dose Ordered Sig/[place] Route PRN Reason Start Time Stop Time Status Last Admin Dose Admin Acetaminophen (Tylenol) 650 mg Q4H PRN ORAL Mild Pain (Pain Scale 1-3) 08/25/20 18:15 09/24/20 18:14 Dextrose (Dextrose 50%) 25 ml Q30M PRN IV Hypoglycemia 08/25/20 18:15 11/23/20 18:14 Dextrose (Dextrose 50%) 50 ml Q30M PRN IV Hypoglycemia 08/25/20 18:15 11/23/20 18:14 Dobutamine HCl 250 ml @ 20.684 mls/ hr Q12H6M IV 08/26/20 11:15 08/28/20 18:59 08/26/20 11:10 Famotidine (Pepcid) 40 mg DAILY ORAL 08/26/20 09:00 11/24/20 08:59 08/26/20 08:57 Furosemide (Lasix) 40 mg BID IV 08/26/20 10:00 09/24/20 09:59 08/26/20 09:36 Heparin Sodium (Porcine) (Heparin 5000 units/ml) 5,000 units EVERY 12 HOURS SUBQ 08/26/20 09:00 10/10/20 08:59 08/26/20 08:58 Insulin Aspart (NovoLOG) BEFORE MEALS AND HS SUBQ 08/25/20 21:00 11/23/20 20:59 08/25/20 21:29 Assessment/Plan Diagnosis Claridge I: #AHSAN due to CRS1 #acute on chronic decompensated CHF #h/o HFref #HTN #DM #HIV #Anemia - check ua - urine chem - renal US - iron panel, vitamin D - PTH - echo - dobutamine drip - lasix 40 IV q6hr - monitor UOP - monitor weights - monitor renal parameters - replete lytes -avoid nephrotoxins time spent 65min Brady Gupta M.D. Aug 26, 2020 13:02
--- NOTE | 2020-08-26 13:15 | General Progress Note ---
Advance Care Planning Advance Care Planning Advance Care Planning [facility] An independent Hospitalist group, where every patient is our [facility] Internal Medicine Hospitalist Advanced Care Planning Note Please contact us at Date of Discussion: A [id number] discussion with the patient regarding the patient's advanced care planning took place during this hospitalization on the above date. The discussion included the explanation and discussion of advance directives and associated forms/documents, as well as the patient's current code status. We also discussed at length the patient's medical conditions (both acute and chroni c), general prognosis, treatment options, and goals of care. The following summarizes the discussion: Advance Care Planning/Goals of Care: - Will attempt to fill out an AD and/or POLST with the patient prior to discharge, if not already completed - Continue current evaluation and management of any acute and chronic medical issues - Will continue to support the patient/family - Will continue to discuss both short- and long-term goals of care DPOA-HC/Surrogate Decision Maker: None currently appointed Code Status: Full Code Advanced Care Planning Forms/Documents Completed: Deferred until later encounter/visit A total of 25 minutes was spent on this discussion, including counseling, answering questions, and completing, if any, pertinent advanced care planning forms/documents. Time of note may not reflect time of encounter. Luis Nelson D.O Aug 26, 2020 13:14
--- NOTE | 2020-08-26 15:43 | Cardiology Report ---
APPROVED REPORT EXAM: Two-dimensional and M-mode echocardiogram with Doppler and color Doppler. INDICATION Congestive Heart Failure M-Mode DIMENSIONS IVSd1.1 (0.7-1.1cm)Left Atrium (MM)6.0 (1.6-4.0cm) LVDd5.4 (3.5-5.6cm)Aortic Root2.8 (2.0-3.7cm) PWd1.0 (0.7-1.1cm)Aortic Cusp Exc.1.8 (1.5-2.0cm) IVSs1.4 cmEPSS1.7 (>1.0cm) LVDs4.0 (2.5-4.0cm) PWs1.4 cm <Conclusion> Global hypokenesis of left ventricular best motion is noted in the proximal to mid lateral wall Mild left ventricular enlargement. Left ventricular ejection fraction estimated to be 20-25%. No left ventricular hypertrophy Trivial pericardial effusion. Mild bi-atrial enlargement. Right ventricular chamber size at upper limits of normal. Focal aortic valve sclerosis with adequate cusp excursion. Thickened mitral valve leaflets with normal excursion. Mitral annulus and aortic root calcification. Normal pulmonic valve structure. Normal tricuspid valve structure. IVC dilated at 2.6 cm without physiologic collapse suggestive of increased RA pressure,RAP estimated 20 mmHg. A color flow and spectral Doppler study was performed and revealed: Trace aortic regurgitation. Moderate to severe mitral regurgitation. Mitral inflow velocities indicates possible pseudo normalization pattern implying moderately elevated left atrial pressure (Grade II ). Moderate tricuspid regurgitation. Tricuspid systolic velocities suggests peak right ventricular systolic pressure of 75 mmHg consistent with severe pulmonary hypertension. No pulmonic regurgitation present.
[2020-08-26 16:00] VITALS: BP 90/56
--- NOTE | 2020-08-26 16:00 | Cardiology Report ---
APPROVED REPORT EKG Measurement Heart [id number] <Conclusion> Normal sinus rhythm Incomplete left bundle branch block ST & T wave abnormality, consider lateral ischemia Abnormal ECG
--- NOTE | 2020-08-26 16:14 | NUR ---
INSURANCE CLINICALS/HP/NOTES FAXED TO [facility] [phone]
--- NOTE | 2020-08-26 18:44 | NUR ---
CASE MANAGEMENT: REVIEW 80 YEAR OLD MALE PRESENTED TO ED FROM HOME CC: SOB . Hx HIV . AIDS . DM . HTN SI: AHSAN . PLEURAL EFFUSION . PNA . NSTEMI T 97.3 HR 67 RR 16 BP 91/58 SAT 88/55 SAT 97% ROOM AIR H/H 10.1/32.7 NA 135 BUN 51 CR 3.0 GLUCOSE 304 TROP I 0.129 BNP 37324 IS: LASIX 40MG IV X1 ASA 162MG PO X1 VANCOMYCIN IV X1 AZITHROMYCIN IV X1 HEPARIN IV X1 DOBUTAMINE IV X1 PATIENT ADMITTED TO TELEMETRY UNIT 08/25/2020 DCP: PATIENT IS FROM HOME
--- NOTE | 2020-08-26 19:01 | NUR ---
NURSE NOTES: pt gave RN couple of home meds contain HIV meds, RN documented all them and put in pharmacy plastic bag with receipt number [id number] and gave them to pharmacy. Addendum: 08/26/20 at 1924 by Nile Unger RN the second receipt number [id number].
--- NOTE | 2020-08-26 19:40 | NUR ---
NURSE HAND-OFF REPORT: Important Events on Shift: Patient Status: Diet: Pending Orders: Pending Results/Labs: Pending MD notification: Latest Vital Signs: Temperature 99.0 , Pulse 67 , B/P 90 /56 , Respiratory Rate 20 , O2 SAT 99 , Room Air, O2 Flow Rate . Vital Sign Comment: EKG Rhythm: Sinus Rhythm Rhythm change?: N MD Notified?: - MD Response: Latest Davis Fall Score: 45 Fall Risk: High Risk Safety Measures: Call light Within Reach, Bed Alarm Zone 1, Side Rails Side Rails x3, Bed position Low and Locked. Fall Precautions: Yellow Socks Yellow Gown Patient Fall Education Report given to . Pt is awake and alert, no stress noted. Endorsed plan of care, Endorsed to monitor I/O.
[2020-08-26 20:00] VITALS: BP 104/57
--- NOTE | 2020-08-26 20:21 | NUR ---
NURSE NOTES: Received patient report from IVY Dowd. Patient shows no signs of distress or pain at the time. Patient is AO x4 slovak speaking and able to make needs known. Patient is on room air with no signs of shortness of breath or respiratory distress. IV is intact and running Dobutamine. There are no signs of erythema, infiltration, or bleeding. Bed is in the lowest position, call light is within reach, side rails up x3, patient able to ambulate.
--- NOTE | 2020-08-26 20:29 | NUR ---
NURSE NOTES: Per pharmacy patient running dobutamine should have central line. Patient currently does not have a central line placed or an order. Contacted Dr. Montoya to inform him and asked if we should continue medication or discontinue medication. Awaiting call back.
--- NOTE | 2020-08-26 20:46 | NUR ---
NURSE NOTES: Called Dr. Dhillon to ask if he would like an order for central line. Awaitning call back.
--- NOTE | 2020-08-26 20:58 | NUR ---
NURSE NOTES: Dr. Montoya asked to dose to 4
[2020-08-26] MEDS: Atorvastatin 20mg tab ORAL SCH (21:10)
[2020-08-27] VITALS: BP 108/68
[2020-08-27 04:00] VITALS: BP 103/67
[2020-08-27] MEDS: NovoLOG Insulin Flexpen SUBQ SCH ×4 (06:16→20:50)
--- NOTE | 2020-08-27 07:30 | NUR ---
NURSE NOTES: Received pt from IVY Sorenson, pt is awake and alert. pt is in RA, no SOB or acute respiratory distress noted. pt has intact iv access RFA 18G is running well. pt is on continues heart monitoring. pt is eating breakfast by observation. no complain of pain at this moment. Pt is on fluid restriction and pt is aware. all needs attended, bed is locked and is in the lowest position, call light within easy reach. will continue to monitor.
--- NOTE | 2020-08-27 07:35 | NUR ---
NURSE HAND-OFF REPORT: Important Events on Shift:[Possible central line placement] Patient Status: [Full code] Diet: [cardiac] Pending Orders: [] Pending Results/Labs:[] Pending MD notification:[] Latest Vital Signs: Temperature 98.8 , Pulse 103 , B/P 103 /67 , Respiratory Rate 20 , O2 SAT 95 , Room Air, O2 Flow Rate . Vital Sign Comment: [] EKG Rhythm: Sinus Rhythm Rhythm change?: N MD Notified?: - MD Response: Latest Davis Fall Score: 45 Fall Risk: High Risk Safety Measures: Call light Within Reach, Bed Alarm Zone 1, Side Rails Side Rails x3, Bed position Low and Locked. Fall Precautions: Yellow Socks Yellow Gown Patient Fall Education Report given to [IVY Dowd].
[2020-08-27 07:51] LABS: BASOPHILS % (AUTO) 0.5 % (0.0-2.0); EOSINOPHILS % (AUTO) 0.4 % (0.0-3.0); HEMATOCRIT 32.6 % (42.0-52.0); HEMOGLOBIN 10.4 G/DL (14.2-18.0); MEAN CORPUSCULAR VOLUME 87 FL (80-99); MONOCYTES % (AUTO) 10.2 % (1.0-10.0); NEUTROPHILS % (AUTO) 73.9 % (45.0-75.0); PLATELET COUNT 268 K/UL (150-450); RED BLOOD COUNT 3.73 M/UL (4.70-6.10); RED CELL DISTRIBUTION WIDTH 22.3 % (11.6-14.8)
[2020-08-27 08:00] VITALS: BP 94/49
[2020-08-27 08:04] LABS: CALCIUM 8.4 MG/DL (8.5-10.1)
--- NOTE | 2020-08-27 08:07 | NUR ---
CASE MANAGEMENT:REVIEW 08/27/20 SI: AC/CHR CHF. NSTEMI. HIV 99.5 103 20 103/67 95% ON RA WBC+11.0 IS: DOBUTAMINE GTT 4MCG/KG/MIN IV LASIX Q6HRS HEPARIN SQ HAART REGIMEN : TELEMETRY STATUS PLAN: CENTRAL LINE PLACEMENT
--- NOTE | 2020-08-27 08:26 | NUR ---
NURSE NOTES: Dr Nelson visited pt and is aware about K 3 and hypotension and other lab results and V/S, ordered KCL 60 meq po once, noted and carried out.
[2020-08-27 08:30] LABS: PHOSPHORUS 3.7 MG/DL (2.5-4.9)
[2020-08-27 08:38] LABS: % IRON SATURATION 8 % (15-50); IRON 24 ug/dL (50-175); TOTAL IRON BINDING CAPACITY 304 ug/dL (250-450)
[2020-08-27] MEDS ORDERED: Dolutegravir Sodium 50mg tab ORAL SCH (09:00)
--- NOTE | 2020-08-27 09:14 | General Progress Note ---
Subjective Constitutional: Denies: no symptoms, chills, diaphoresis, fever, malaise, weakness, other HEENT: Denies: no symptoms, eye pain, blurred vision, tearing, double vision, ear pain, ear discharge, nose pain, nose congestion, throat pain, throat swelling, mouth pain, mouth swelling, other Cardiovascular: Denies: no symptoms, chest pain, edema, irregular heart rate, lightheadedness, palpitations, syncope, other Respiratory: Denies: no symptoms, cough, orthopnea, shortness of breath, SOB with excertion, SOB at rest, sputum, stridor, wheezing, other Gastrointestinal/Abdominal: Denies: no symptoms, abdomen distended, abdominal pain, black stools, tarry stools, blood in stool, constipated, diarrhea, difficulty swallowing, nausea, poor appetite, poor fluid intake, rectal bleeding, vomiting, other Genitourinary: Denies: no symptoms, burning, discharge, frequency, flank pain, hematuria, incontinence, pain, urgency, other Neurologic/Psychiatric: Denies: no symptoms, anxiety, depressed, emotional problems, headache, numbness, paresthesia, pre-existing deficit, seizure, tingling, tremors, weakness, other Endocrine: Denies: no symptoms, excessive sweating, flushing, intolerance to cold, intolerance to heat, increased hunger, increased thirst, increased urine, unexplained weight gain, unexplained weight loss, other Hematologic/Lymphatic: Denies: no symptoms, anemia, easy bleeding, easy bruising, other Allergies: Coded Allergies: No Known Allergies (Unverified , 06/03/20) Subjective No acute events overnight. Feels well this morning. Sitting up right without oxygen. No shortness of breath. Still on dobutamine. Objective Last 24 Hour Vital Signs Date Time Temp Pulse Resp B/P (MAP) Pulse Ox O2 Delivery O2 Flow Rate FiO2 08/27/20 08:00 99.1 105 20 94/49 (64) 100 08/27/20 04:00 98.8 103 20 103/67 (79) 95 08/27/20 04:00 103 08/27/20 00:00 99.5 94 20 108/68 (81) 95 08/27/20 00:00 100 08/26/20 22:00 104/57 08/26/20 21:00 Room Air 08/26/20 20:00 99.0 88 18 104/57 (73) 98 08/26/20 20:00 99 08/26/20 16:00 99.0 67 20 90/56 (67) 99 08/26/20 15:40 89 08/26/20 12:00 97.7 85 18 91/44 (60) 100 08/26/20 12:00 90 08/26/20 11:10 94/46 Intake and Output 08/26/20 08/27/20 19:00 07:00 Intake Total 864.788 ml 180 ml Output Total 4100 ml 2300 ml Balance -3235.212 ml -2120 ml Intake Oral 720 ml 180 ml IV Total 144.788 ml Output Urine Total 4100 ml 2300 ml # Bowel Movements 1 Laboratory Tests 08/26/20 11:49: POC Whole Blood Glucose 99 08/26/20 16:43: POC Whole Blood Glucose 116H 08/26/20 20:43: POC Whole Blood Glucose [Pending] 08/27/20 06:09: POC Whole Blood Glucose [Pending] 08/27/20 07:04: White Blood Count 11.0H, Red Blood Count 3.73L, Hemoglobin 10.4L, Hematocrit 32.6L, Mean Corpuscular Volume 87, Mean Corpuscular Hemoglobin 27.9, Mean Corpuscular Hemoglobin Concent 31.9L, Red Cell Distribution Width 22.3H, Platelet Count 268, Mean Platelet Volume 6.8, Neutrophils (%) (Auto) 73.9, Lymphocytes (%) (Auto) 15.0L, Monocytes (%) (Auto) 10.2H, Eosinophils (%) (Auto) 0.4, Basophils (%) (Auto) 0.5, Sodium Level 143, Potassium Level 3.0L, Chloride Level 105, Carbon Dioxide Level 25, Anion Gap 13, Blood Urea Nitrogen 30H, Creatinine 2.0H, Estimat Glomerular Filtration Rate 32.5, Glucose Level 134H, Calcium Level 8.4L, Calcium (Send out) [Pending], Phosphorus Level 3.7, Magnesium Level 1.6L, Iron Level 24L, Total Iron Binding Capacity 304, Percent Iron Saturation 8L, Unsaturated Iron Binding 280, Ferritin 63, Vitamin B12 Level [Pending], Vitamin D 25-Hydroxy [Pending], 25-Hydroxy Vitamin D2 [Pending], 25- Hydroxy Vitamin D3 [Pending], Folate [Pending], Parathyroid Hormone (Intact) [Pending] Height (Feet): 5 Height (Inches): 5.00 Weight (Pounds): 152 General Appearance: no apparent distress, alert, alert oriented x3 EENT: PERRL/EOMI, normal ENT inspection Neck: non-tender, supple Cardiovascular: normal rate, regular rhythm, no JVD Respiratory/Chest: lungs clear, normal breath sounds, respiratory distress Abdomen: non tender, soft, no mass Edema: 2+ Leg (L), 2+ Leg (R) Edema: moderate edema Neurologic: outside sales account representative II-XII grossly normal, alert, oriented x 3 Skin: normal pigmentation, warm/dry Assessment/Plan Assessment/Plan: Andrae Davis is a 80-year-old male with PMH of HFrEF, HTN, HIV, IDDM, HLD who presents with SOB. 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 # History of HIV on HHART # Hyperlipidemia # Normocytic anemia 2/2ACD versus IDC versus CKD # Troponin elevation # HTN # Incomplete LBBB P: -Continue dopamine supplementation for hemodynamics per cardiology Continue Lasix IV every 6 hours 40 mg Echo showing diffuse global hypokinesia, EF 20- 25 %, RSVP 75 Troponin uptrending, continue to trend for now defer heparin to cardiology Hold beta-blockers and TONY/ARB/Arni until patient more euvolemic and AHSAN resolved Monitor renal function Monitor lytes Keep potassium > 4, magnesium > 2 Strict I's and O's Fluid restriction to 1500 mL/day Daily weights Leukocytosis today however no fever, or signs of infectious etiologies we will continue to monitor Continue HHART meds follow-up: Iron panel, ferritin, B12, folic acid - Cardiology consult Dr. Montoya, recs appreciated Nephrology consult ricky Almeidas appreciated CODE: Full Diet: cardiac DVT ppx: heparin subQ GI: Famotidine Dispo: Resolution of acute exacerbation of heart failure Time spent on this encounter was 39 minutes which included 22 minutes of counseling and care coordination. I discussed with the nurse at bedside and nephrology, patient financial coordinator. Time of note may not reflect time patient was seen. Luis Nelson D.O Aug 27, 2020 09:14
[2020-08-27] MEDS: Heparin 5000 units/ml inj SUBQ SCH ×2 (09:16→20:49)
[2020-08-27] MEDS: Patient's Own Med - Tivicay 50mg ORAL SCH (09:18)
[2020-08-27] MEDS: Patient's Own Med - Prezcobix 800/150mg ORAL SCH (09:18)
--- NOTE | 2020-08-27 10:00 | NUR ---
NURSE NOTES: Radiology Jay is aware about insertion central line, Jay stated need order on category radiology, Dr Nelson is aware, he will F/U.
--- NOTE | 2020-08-27 10:12 | Cardiac Electrophysiology PN ---
Assessment/Plan Assessment/Plan 1. Exacerbation of congestive heart failure with ejection fraction of 30%. Patient is also in acute renal failure with BUN of 51 and creatinine of 3.0 and BNP of 22,000. Repeat echocardiogram showed EF 20% Decrease dobutamine drip to 3 mcg and Lasix 40 iv q 6. Hold off on Coreg, lisinopril, and Aldactone in view of starting dobutamine as well as acute renal failure. PICC line pending. 2. Troponin elevation, could be due to patient's renal failure with creatinine of 3.5. 3. Acute renal failure. Again, the creatinine was 1.2 on 06/06/2020 and on admission was 3.0, likely due to cardiorenal syndrome.Avoid ACEI and ARB Cr improved to 2.0 on Dobutamine and iv Lasix. 4. Hypertension. At this time, just keep him on Lasix and dobutamine 5. Incomplete left bundle-branch block. At some point, patient would need ischemic evaluation, but at this time, patient in congestive heart failure with a creatinine of 3 and is not a candidate for cardiac catheterization. 6. HIV. Patient is on anti-retroviral therapy including Prezcobix and Tivicay. MILY RN Subjective Subjective CHF exacerbation EF 30% in 05/2020 and now 20%. Also in ARF with CR 1.2 increased to 3.0 since 8 Feeling better on Dobutamine drip at 5 and Lasix 40 iv q 6 hr Objective Last 24 Hour Vital Signs Date Time Temp Pulse Resp B/P (MAP) Pulse Ox O2 Delivery O2 Flow Rate FiO2 08/27/20 08:18 106 08/27/20 08:00 99.1 105 20 94/49 (64) 100 08/27/20 04:00 98.8 103 20 103/67 (79) 95 08/27/20 04:00 103 08/27/20 00:00 99.5 94 20 108/68 (81) 95 08/27/20 00:00 100 08/26/20 22:00 104/57 08/26/20 21:00 Room Air 08/26/20 20:00 99.0 88 18 104/57 (73) 98 08/26/20 20:00 99 08/26/20 16:00 99.0 67 20 90/56 (67) 99 08/26/20 15:40 89 08/26/20 12:00 97.7 85 18 91/44 (60) 100 08/26/20 12:00 90 08/26/20 11:10 94/46 Intake and Output 08/26/20 08/27/20 19:00 07:00 Intake Total 864.788 ml 180 ml Output Total 4100 ml 2300 ml Balance -3235.212 ml -2120 ml Intake Oral 720 ml 180 ml IV Total 144.788 ml Output Urine Total 4100 ml 2300 ml # Bowel Movements 1 Laboratory Tests Test 08/26/20 11:49 08/26/20 16:43 08/26/20 20:43 08/27/20 06:09 POC Whole Blood Glucose 99 MG/DL (74-106) 116 MG/DL (74-106) H Pending Pending Test 08/27/20 07:04 White Blood Count 11.0 K/UL (4.8-10.8) H Red Blood Count 3.73 M/UL (4.70-6.10) L Hemoglobin 10.4 G/DL (14.2-18.0) L Hematocrit 32.6 % (42.0-52.0) L Mean Corpuscular Volume 87 FL (80-99) Mean Corpuscular Hemoglobin 27.9 PG (27.0-31.0) Mean Corpuscular Hemoglobin Concent 31.9 G/DL (32.0-36.0) L Red Cell Distribution Width 22.3 % (11.6-14.8) H Platelet Count 268 K/UL (150-450) Mean Platelet Volume 6.8 FL (6.5-10.1) Neutrophils (%) (Auto) 73.9 % (45.0-75.0) Lymphocytes (%) (Auto) 15.0 % (20.0-45.0) L Monocytes (%) (Auto) 10.2 % (1.0-10.0) H Eosinophils (%) (Auto) 0.4 % (0.0-3.0) Basophils (%) (Auto) 0.5 % (0.0-2.0) Sodium Level 143 MMOL/L (136-145) Potassium Level 3.0 MMOL/L (3.5-5.1) L Chloride Level 105 MMOL/L (98-107) Carbon Dioxide Level 25 MMOL/L (21-32) Anion Gap 13 mmol/L (5-15) Blood Urea Nitrogen 30 mg/dL (7-18) H Creatinine 2.0 MG/DL (0.55-1.30) H Estimat Glomerular Filtration Rate 32.5 mL/min (>60) Glucose Level 134 MG/DL (74-106) H Calcium Level 8.4 MG/DL (8.5-10.1) L Calcium (Send out) Pending Phosphorus Level 3.7 MG/DL (2.5-4.9) Magnesium Level 1.6 MG/DL (1.8-2.4) L Iron Level 24 ug/dL (50-175) L Total Iron Binding Capacity 304 ug/dL (250-450) Percent Iron Saturation 8 % (15-50) L Unsaturated Iron Binding 280 ug/dL (112-346) Ferritin 63 NG/ML (8-388) Vitamin B12 Level 956 PG/ML (193-986) Vitamin D 25-Hydroxy Pending 25-Hydroxy Vitamin D2 Pending 25-Hydroxy Vitamin D3 Pending Folate 34.0 NG/ML (8.6-58.9) Parathyroid Hormone (Intact) Pending Microbiology Date/Time Source Procedure Growth Status 08/25/20 13:11 Nasopharynx SARS-CoV-2 RdRp Gene Assay - Final Complete Objective HEAD AND NECK: Mild JVD. LUNGS: Coarse rhonchi. CARDIOVASCULAR: regular S1 and S2 with no gallop. ABDOMEN: Soft. EXTREMITIES: 2+ bilateral pitting edema. Grabiel Montoya MD Aug 27, 2020 10:12
[2020-08-27] MEDS ORDERED: Lidocaine 1% MPF 10mg/ml 5ml INJ SCH (11:00)
[2020-08-27 11:09] LABS: APPEARANCE,URINE CLEAR; BILIRUBIN, URINE NEGATIVE (NEGATIVE); COLOR,URINE PALE YELLOW; GLUCOSE, URINE (UA) NEGATIVE (NEGATIVE); KETONES,URINE NEGATIVE (NEGATIVE); LEUKOCYTE ESTERASE ,URINE NEGATIVE (NEGATIVE); NITRITE,URINE NEGATIVE (NEGATIVE); PH,URINE 5 (4.5-8.0); PROTEIN,URINE NEGATIVE (NEGATIVE); UROBILINOGEN,URINE NORMAL MG/DL (0.0-1.0)
--- NOTE | 2020-08-27 11:55 | NUR ---
NURSE NOTES: Dr Roman is aware about all new lab results, no new order received. will continue to monitor. Addendum: 08/27/20 at 1222 by Nile Unger RN Error wrong pt.
[2020-08-27 12:00] VITALS: BP 92/50
--- NOTE | 2020-08-27 13:23 | Nephrology Progress Note ---
Assessment/Plan Plan #AHSAN due to CRS1 #acute on chronic decompensated CHF #h/o HFref #HTN #DM #HIV #Anemia - lasix 40 IV q6hr - echo noted - dobutamine drip - monitor UOP - monitor weights - monitor renal parameters - replete lytes -avoid nephrotoxins time spent 65min Subjective ROS Limited/Unobtainable: No Constitutional: Reports: weakness HEENT: Denies: no symptoms, eye pain, blurred vision, tearing, double vision, ear pain, ear discharge, nose pain, nose congestion, throat pain, throat swelling, mouth pain, mouth swelling, other Genitourinary: Denies: no symptoms, burning, discharge, frequency, flank pain, hematuria, incontinence, pain, urgency, other Neurologic/Psychiatric: Denies: no symptoms, anxiety, depressed, emotional problems, headache, numbness, paresthesia, pre-existing deficit, seizure, tingling, tremors, weakness, other Subjective Cr slowly downtrending less dyspnea BP borderline on dobutamin drip Objective Objective Last 24 Hour Vital Signs Date Time Temp Pulse Resp B/P (MAP) Pulse Ox O2 Delivery O2 Flow Rate FiO2 08/27/20 12:00 98.9 97 20 92/50 (64) 97 08/27/20 11:28 93 08/27/20 09:00 Room Air 08/27/20 08:18 106 08/27/20 08:00 99.1 105 20 94/49 (64) 100 08/27/20 04:00 98.8 103 20 103/67 (79) 95 08/27/20 04:00 103 08/27/20 00:00 99.5 94 20 108/68 (81) 95 08/27/20 00:00 100 08/26/20 22:00 104/57 08/26/20 21:00 Room Air 08/26/20 20:00 99.0 88 18 104/57 (73) 98 08/26/20 20:00 99 08/26/20 16:00 99.0 67 20 90/56 (67) 99 08/26/20 15:40 89 Intake and Output 08/26/20 08/27/20 19:00 07:00 Intake Total 864.788 ml 180 ml Output Total 4100 ml 2300 ml Balance -3235.212 ml -2120 ml Intake Oral 720 ml 180 ml IV Total 144.788 ml Output Urine Total 4100 ml 2300 ml # Bowel Movements 1 Laboratory Tests 08/26/20 16:43: POC Whole Blood Glucose 116H 08/26/20 20:43: POC Whole Blood Glucose [Pending] 08/27/20 06:09: POC Whole Blood Glucose [Pending] 08/27/20 07:04: White Blood Count 11.0H, Red Blood Count 3.73L, Hemoglobin 10.4L, Hematocrit 32.6L, Mean Corpuscular Volume 87, Mean Corpuscular Hemoglobin 27.9, Mean Corpuscular Hemoglobin Concent 31.9L, Red Cell Distribution Width 22.3H, Platelet Count 268, Mean Platelet Volume 6.8, Neutrophils (%) (Auto) 73.9, Lymphocytes (%) (Auto) 15.0L, Monocytes (%) (Auto) 10.2H, Eosinophils (%) (Auto) 0.4, Basophils (%) (Auto) 0.5, Sodium Level 143, Potassium Level 3.0L, Chloride Level 105, Carbon Dioxide Level 25, Anion Gap 13, Blood Urea Nitrogen 30H, Creatinine 2.0H, Estimat Glomerular Filtration Rate 32.5, Glucose Level 134H, Calcium Level 8.4L, Calcium (Send out) [Pending], Phosphorus Level 3.7, Magnesium Level 1.6L, Iron Level 24L, Total Iron Binding Capacity 304, Percent Iron Saturation 8L, Unsaturated Iron Binding 280, Ferritin 63, Vitamin B12 Level 956, Vitamin D 25-Hydroxy [Pending], 25-Hydroxy Vitamin D2 [Pending], 25- Hydroxy Vitamin D3 [Pending], Folate 34.0, Parathyroid Hormone (Intact) [Pending] 08/27/20 10:45: Urine Color Pale yellow, Urine Appearance Clear, Urine pH 5, Urine Specific [place] 1.010, Urine Protein Negative, Urine Glucose (UA) Negative, Urine Ketones Negative, Urine Blood Negative, Urine Nitrite Negative, Urine Bilirubin Negative, Urine Urobilinogen Normal, Urine Leukocyte Esterase Negative 08/27/20 11:44: POC Whole Blood Glucose 125H Height (Feet): 5 Height (Inches): 5.00 Weight (Pounds): 152 General Appearance: no apparent distress EENT: PERRL/EOMI, normal ENT inspection Neck: non-tender, normal alignment Cardiovascular: normal peripheral pulses, normal rate, regular rhythm Respiratory/Chest: chest wall non-tender Abdomen: normal bowel sounds, non tender Extremities: non-tender Neurologic: alert, oriented x 3 Brady Gupta M.D. Aug 27, 2020 13:23
--- NOTE | 2020-08-27 14:54 | NUR ---
NURSE NOTES: pt is stable, no stress noted, left unit for central line insertion. Addendum: 08/27/20 at 1458 by Nile Unger RN BP 105/62 HR 90.
[2020-08-27] MEDS ORDERED: Heparin1,000 units/500ml Premix(Conc:2 units/ml) INJ PRN (14:55)
[2020-08-27] MEDS ORDERED: Lidocaine 1% Plain 30 ml INJ PRN (14:55)
--- NOTE | 2020-08-27 15:28 | NUR ---
INSURANCE CLINICALS/REVIEW FAXED TO [facility] [phone] [facility] [phone]
--- NOTE | 2020-08-27 15:52 | Pre-Procedure Note/Attestation ---
Pre-Procedure Note/Attestation Complete Prior to Procedure Planned Procedure: not applicable Procedure Narrative: picc line placement Indications for Procedure Pre-Operative Diagnosis: need roasterman iv access Attestation informed consent obtained by primary team ,confirmed prior to picc placement . Yung Dempsey M.D. Aug 27, 2020 15:52
--- NOTE | 2020-08-27 15:59 | Diagnostic Imaging Report ---
Indications: Needs long-term IV access Technique: Ultrasound confirms patent compressible left basilic vein. Total sterile technique, including sterile probe cover and sterile gel, hat, mask,, sterile gown, large sterile drape, and preparation with 2% chlorhexidine utilized. Local anesthesia with 1% lidocaine. Under real-time ultrasound guidance, puncture left basilic vein using 21-gauge needle, documented and archived, passage 0.018 guidewire under direct fluoroscopy, which was used to determine appropriate catheter length, exchange for 4.5 [place] peel-away sheath. 4French dual-lumen power PICC cut to 45 cm. It was inserted through the peel-away sheath. Peel-away sheath and guidewire removed. Catheter fixed to the skin. Both catheter ports aspirated and flushed. Patient tolerated procedure well, without immediate complication. Digital radiograph documents satisfactory catheter tip position, at the cavoatrial junction. Total fluoroscopy time 16.2 seconds Total fluoroscopy dose 2.13 mGy. Total number of fluoroscopic images obtained: 2 Impression: Successful placement of 4 [place] double-lumen PICC under sonographic and fluoroscopic guidance, as described above. Catheter is cleared for immediate use.
[2020-08-27] MEDS ORDERED: DOBUTamine 250mg/250ml Premix 250 ML IV SCH (16:47)
[2020-08-27 17:00] VITALS: BP 91/58
--- NOTE | 2020-08-27 17:00 | NUR ---
NURSE NOTES: pt came back and has PICC(double lumen) ANGELICA, no stress noted. no pain noted. will continue to monitor.
--- NOTE | 2020-08-27 17:26 | NUR ---
NURSE NOTES: Dobutamine via PICC is running.
--- NOTE | 2020-08-27 18:08 | NUR ---
NURSE NOTES: Dr Nelson is aware about K 3.2, waiting to call back.
--- NOTE | 2020-08-27 18:25 | NUR ---
NURSE NOTES: Dr Nelson called back and will F/U for K 3.2. Will continue to monitor.
--- NOTE | 2020-08-27 18:30 | NUR ---
RADIOLOGY NOTE: LEFT UPPER EXTREMITY PICC LINE PLACEMENT BY DR. BAJWA. FA
--- NOTE | 2020-08-27 19:33 | NUR ---
NURSE HAND-OFF REPORT: Important Events on Shift: Patient Status: Diet: Pending Orders: Pending Results/Labs: Pending MD notification: Latest Vital Signs: Temperature 96.5 , Pulse 91 , B/P 91 /58 , Respiratory Rate 20 , O2 SAT 98 , Room Air, O2 Flow Rate . Vital Sign Comment: EKG Rhythm: Sinus Rhythm Rhythm change?: N MD Notified?: Y -Dr Lindsay COLON Response: No New Orders Received Latest Davis Fall Score: 45 Fall Risk: High Risk Safety Measures: Call light Within Reach, Bed Alarm Zone 1, Side Rails Side Rails x3, Bed position Low and Locked. Fall Precautions: Yellow Socks Yellow Gown Patient Fall Education Report given to . Pt is awake and stable, no stress noted. Endorsed plan of care, Endorsed to monitor I/O,K,MG, PICC.
--- NOTE | 2020-08-27 19:34 | NUR ---
NURSE NOTES: Patient received from Nile RN. Patient in stable condition resting well and comfortable in bed. A&Ox 4 turkish speaking. No c/o pain and no s/s of distress. IV site patent and intact on Right FA 18G running Magnesium and Left AC 18G SL. PICC line patent and intact inserted today running Dobutamine as ordered. Bed in lowest position and locked. Call light and bedside table within reach. Will continue plan of care.
[2020-08-27 20:00] VITALS: BP 105/62
[2020-08-27] MEDS: Atorvastatin 20mg tab ORAL SCH (20:49)
[2020-08-28] VITALS: BP 111/73
[2020-08-28 04:00] VITALS: BP 122/66
[2020-08-28] MEDS: NovoLOG Insulin Flexpen SUBQ SCH ×4 (05:53→21:00)
[2020-08-28 06:02] LABS: HEMATOCRIT 33.2 % (42.0-52.0); HEMOGLOBIN 10.3 G/DL (14.2-18.0); MEAN CORPUSCULAR VOLUME 88 FL (80-99); PLATELET COUNT 261 K/UL (150-450); RED BLOOD COUNT 3.77 M/UL (4.70-6.10); RED CELL DISTRIBUTION WIDTH 22.8 % (11.6-14.8); WHITE BLOOD COUNT 12.3 K/UL (4.8-10.8)
[2020-08-28 06:13] LABS: CREATININE 1.9 MG/DL (0.55-1.30); POTASSIUM 3.8 MMOL/L (3.5-5.1)
--- NOTE | 2020-08-28 07:22 | NUR ---
NURSE NOTES: Received pt from [facility], pt is awake and alert. pt is in RA, no SOB or acute respiratory distress noted. pt has intact iv access RFA 18G and LAC 18G SL and has PICC ANGELICA Dobutamine 3mcg/kg/min is running well. pt is on continues heart monitoring. pt is eating breakfast by observation. no complain of pain at this moment. Pt is on fluid restriction and pt is aware. all needs attended, bed is locked and is in the lowest position, call light within easy reach. will continue to monitor.
--- NOTE | 2020-08-28 07:26 | NUR ---
NURSE HAND-OFF REPORT: Important Events on Shift:[None] Patient Status: [Stable] Diet: [Cardiac] Pending Orders: [] Pending Results/Labs:[] Pending MD notification:[] Latest Vital Signs: Temperature 97.7 , Pulse 121 , B/P 122 /66 , Respiratory Rate 20 , O2 SAT 97 , Room Air, O2 Flow Rate . Vital Sign Comment: [] EKG Rhythm: Sinus Tachycardia Rhythm change?: N MD Notified?: Y -Dr Lindsay COLON Response: No New Orders Received Latest Davis Fall Score: 45 Fall Risk: High Risk Safety Measures: Call light Within Reach, Bed Alarm Zone 1, Side Rails Side Rails x3, Bed position Low and Locked. Fall Precautions: Yellow Socks Yellow Gown Patient Fall Education Report given to [Nile RN].
[2020-08-28 08:00] VITALS: BP 98/62
--- NOTE | 2020-08-28 08:23 | NUR ---
NURSE NOTES: U/A and BC sent to lab.
[2020-08-28 08:39] LABS: APPEARANCE,URINE CLEAR; BILIRUBIN, URINE NEGATIVE (NEGATIVE); COLOR,URINE PALE YELLOW; GLUCOSE, URINE (UA) 1+ (NEGATIVE); KETONES,URINE NEGATIVE (NEGATIVE); LEUKOCYTE ESTERASE ,URINE 2+ (NEGATIVE); NITRITE,URINE NEGATIVE (NEGATIVE); PH,URINE 5 (4.5-8.0); PROTEIN,URINE 1+ (NEGATIVE); UROBILINOGEN,URINE NORMAL MG/DL (0.0-1.0)
--- NOTE | 2020-08-28 09:00 | NUR ---
NURSE NOTES: Dr Nelson visited pt and is aware about WBC 12.3, V/S and other lab results, ordered CXR, noted and carried out. will continue to monitor.
[2020-08-28] MEDS: Patient's Own Med - Prezcobix 800/150mg ORAL SCH (09:17)
[2020-08-28] MEDS: Patient's Own Med - Tivicay 50mg ORAL SCH (09:17)
[2020-08-28] MEDS: Heparin 5000 units/ml inj SUBQ SCH ×2 (09:17→21:05)
--- NOTE | 2020-08-28 10:13 | Nephrology Progress Note ---
Assessment/Plan Plan #AHSAN due to CRS1 #acute on chronic decompensated CHF #h/o HFref #HTN #DM #HIV #Anemia - lasix 40 IV q6hr - echo noted - dobutamine drip - monitor UOP - monitor weights - monitor renal parameters - replete lytes -avoid nephrotoxins time spent 65min Subjective ROS Limited/Unobtainable: No Constitutional: Reports: weakness HEENT: Denies: no symptoms, eye pain, blurred vision, tearing, double vision, ear pain, ear discharge, nose pain, nose congestion, throat pain, throat swelling, mouth pain, mouth swelling, other Genitourinary: Denies: no symptoms, burning, discharge, frequency, flank pain, hematuria, incontinence, pain, urgency, other Neurologic/Psychiatric: Denies: no symptoms, anxiety, depressed, emotional problems, headache, numbness, paresthesia, pre-existing deficit, seizure, tingling, tremors, weakness, other Subjective Cr slowly downtrending less dyspnea BP borderline on dobutamin drip Objective Objective Last 24 Hour Vital Signs Date Time Temp Pulse Resp B/P (MAP) Pulse Ox O2 Delivery O2 Flow Rate FiO2 08/28/20 08:00 99.0 111 18 98/62 (74) 99 08/28/20 07:33 106 08/28/20 04:00 121 08/28/20 04:00 97.7 121 20 122/66 (84) 97 08/28/20 00:00 106 08/28/20 00:00 97.0 106 20 111/73 (86) 97 08/27/20 21:00 Room Air 08/27/20 20:00 100 08/27/20 20:00 97.2 100 20 105/62 (76) 100 08/27/20 17:26 91/58 08/27/20 17:00 96.5 91 20 91/58 (69) 98 08/27/20 16:43 82 08/27/20 12:00 98.9 97 20 92/50 (64) 97 08/27/20 11:28 93 Intake and Output 08/27/20 08/28/20 19:00 07:00 Intake Total 544.786 ml 599.28 ml Output Total 1300 ml 2000 ml Balance -755.214 ml -1400.72 ml Intake Oral 300 ml 500 ml IV Total 244.786 ml 99.28 ml Output Urine Total 1300 ml 2000 ml # Voids 3 # Bowel Movements 1 Laboratory Tests 08/27/20 10:45: Urine Color Pale yellow, Urine Appearance Clear, Urine pH 5, Urine Specific [place] 1.010, Urine Protein Negative, Urine Glucose (UA) Negative, Urine Ketones Negative, Urine Blood Negative, Urine Nitrite Negative, Urine Bilirubin Negative, Urine Urobilinogen Normal, Urine Leukocyte Esterase Negative 08/27/20 11:44: POC Whole Blood Glucose 125H 08/27/20 17:13: POC Whole Blood Glucose 129H 08/27/20 17:23: Potassium Level 3.2L 08/27/20 20:09: POC Whole Blood Glucose 158H 08/28/20 05:00: White Blood Count 12.3H, Red Blood Count 3.77L, Hemoglobin 10.3L, Hematocrit 33.2L, Mean Corpuscular Volume 88, Mean Corpuscular Hemoglobin 27.2, Mean Corpuscular Hemoglobin Concent 30.9L, Red Cell Distribution Width 22.8H, Platelet Count 261, Mean Platelet Volume 6.6, Neutrophils (%) (Auto) , Lymphocytes (%) (Auto) , Monocytes (%) (Auto) , Eosinophils (%) (Auto) , Basophils (%) (Auto) , Sodium Level 140, Potassium Level 3.8, Chloride Level 102, Carbon Dioxide Level 27, Anion Gap 11, Blood Urea Nitrogen 26H, Creatinine 1.9H, Estimat Glomerular Filtration Rate 34.5, Glucose Level 175H, Calcium Level 8.0L, Magnesium Level 2.0 08/28/20 05:10: POC Whole Blood Glucose [Pending] 08/28/20 08:15: Urine Color Pale yellow, Urine Appearance Clear, Urine pH 5, Urine Specific [place] 1.010, Urine Protein 1+H, Urine Glucose (UA) 1+H, Urine Ketones Negative, Urine Blood Negative, Urine Nitrite Negative, Urine Bilirubin Negative, Urine Urobilinogen Normal, Urine Leukocyte Esterase 2+H, Urine RBC 0, Urine WBC 5-10H, Urine Squamous Epithelial Cells Occasional, Urine Bacteria Few, Urine Mucus FewH Height (Feet): 5 Height (Inches): 5.00 Weight (Pounds): 152 Brady Gupta M.D. Aug 28, 2020 10:13
--- NOTE | 2020-08-28 10:20 | General Progress Note ---
Subjective Constitutional: Denies: no symptoms, chills, diaphoresis, fever, malaise, weakness, other HEENT: Denies: no symptoms, eye pain, blurred vision, tearing, double vision, ear pain, ear discharge, nose pain, nose congestion, throat pain, throat swelling, mouth pain, mouth swelling, other Cardiovascular: Denies: no symptoms, chest pain, edema, irregular heart rate, lightheadedness, palpitations, syncope, other Respiratory: Denies: no symptoms, cough, orthopnea, shortness of breath, SOB with excertion, SOB at rest, sputum, stridor, wheezing, other Gastrointestinal/Abdominal: Denies: no symptoms, abdomen distended, abdominal pain, black stools, tarry stools, blood in stool, constipated, diarrhea, difficulty swallowing, nausea, poor appetite, poor fluid intake, rectal bleeding, vomiting, other Genitourinary: Denies: no symptoms, burning, discharge, frequency, flank pain, hematuria, incontinence, pain, urgency, other Neurologic/Psychiatric: Denies: no symptoms, anxiety, depressed, emotional problems, headache, numbness, paresthesia, pre-existing deficit, seizure, tingling, tremors, weakness, other Endocrine: Denies: no symptoms, excessive sweating, flushing, intolerance to cold, intolerance to heat, increased hunger, increased thirst, increased urine, unexplained weight gain, unexplained weight loss, other Hematologic/Lymphatic: Denies: no symptoms, anemia, easy bleeding, easy bruising, other Allergies: Coded Allergies: No Known Allergies (Unverified , 06/03/20) Subjective No acute events overnight. Feels better this morning. SOB better. LE edema improved. WBC elevated. No fevers, cough, dysuria, pain. Objective Last 24 Hour Vital Signs Date Time Temp Pulse Resp B/P (MAP) Pulse Ox O2 Delivery O2 Flow Rate FiO2 08/28/20 08:00 99.0 111 18 98/62 (74) 99 08/28/20 07:33 106 08/28/20 04:00 121 08/28/20 04:00 97.7 121 20 122/66 (84) 97 08/28/20 00:00 106 08/28/20 00:00 97.0 106 20 111/73 (86) 97 08/27/20 21:00 Room Air 08/27/20 20:00 100 11/18/20 20:00 97.2 100 20 105/62 (76) 100 08/27/20 17:26 91/58 08/27/20 17:00 96.5 91 20 91/58 (69) 98 08/27/20 16:43 82 08/27/20 12:00 98.9 97 20 92/50 (64) 97 08/27/20 11:28 93 Intake and Output 08/27/20 08/28/20 19:00 07:00 Intake Total 544.786 ml 599.28 ml Output Total 1300 ml 2000 ml Balance -755.214 ml -1400.72 ml Intake Oral 300 ml 500 ml IV Total 244.786 ml 99.28 ml Output Urine Total 1300 ml 2000 ml # Voids 3 # Bowel Movements 1 Laboratory Tests 08/27/20 10:45: Urine Color Pale yellow, Urine Appearance Clear, Urine pH 5, Urine Specific [place] 1.010, Urine Protein Negative, Urine Glucose (UA) Negative, Urine Ketones Negative, Urine Blood Negative, Urine Nitrite Negative, Urine Bilirubin Negative, Urine Urobilinogen Normal, Urine Leukocyte Esterase Negative 08/27/20 11:44: POC Whole Blood Glucose 125H 08/27/20 17:13: POC Whole Blood Glucose 129H 08/27/20 17:23: Potassium Level 3.2L 08/27/20 20:09: POC Whole Blood Glucose 158H 08/28/20 05:00: White Blood Count 12.3H, Red Blood Count 3.77L, Hemoglobin 10.3L, Hematocrit 33.2L, Mean Corpuscular Volume 88, Mean Corpuscular Hemoglobin 27.2, Mean Corpuscular Hemoglobin Concent 30.9L, Red Cell Distribution Width 22.8H, Platelet Count 261, Mean Platelet Volume 6.6, Neutrophils (%) (Auto) , Lymphocytes (%) (Auto) , Monocytes (%) (Auto) , Eosinophils (%) (Auto) , Basophils (%) (Auto) , Sodium Level 140, Potassium Level 3.8, Chloride Level 102, Carbon Dioxide Level 27, Anion Gap 11, Blood Urea Nitrogen 26H, Creatinine 1.9H, Estimat Glomerular Filtration Rate 34.5, Glucose Level 175H, Calcium Level 8.0L, Magnesium Level 2.0 08/28/20 05:10: POC Whole Blood Glucose [Pending] 11/19/20 08:15: Urine Color Pale yellow, Urine Appearance Clear, Urine pH 5, Urine Specific [place] 1.010, Urine Protein 1+H, Urine Glucose (UA) 1+H, Urine Ketones Negative, Urine Blood Negative, Urine Nitrite Negative, Urine Bilirubin Negative, Urine Urobilinogen Normal, Urine Leukocyte Esterase 2+H, Urine RBC 0, Urine WBC 5-10H, Urine Squamous Epithelial Cells Occasional, Urine Bacteria Few, Urine Mucus FewH Height (Feet): 5 Height (Inches): 5.00 Weight (Pounds): 152 General Appearance: no apparent distress, alert, alert oriented x3 EENT: PERRL/EOMI Neck: normal alignment, supple, abnormal alignment Cardiovascular: normal rate, regular rhythm, no JVD Respiratory/Chest: lungs clear, normal breath sounds Abdomen: non tender, soft, no organomegaly Extremities: normal range of motion, non-tender Edema: 1+ Arm (L); 2+ Arm (R) 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 # History of HIV on HHART # Hyperlipidemia # Normocytic anemia 2/2 LJ # Troponin elevation # HTN # Incomplete LBBB P: -Continue dopamine supplementation for hemodynamics per cardiology Continue Lasix IV every 6 hours 40 mg Echo showing diffuse global hypokinesia, EF 20- 25 %, RSVP 75 Hold beta-blockers and TONY/ARB/Arni until patient more euvolemic and AHSAN resolved -elevated leukocytosis; no new signs of infectious etiologies - f/u BC, UC - UA +UTI; will start rocephin empirically Monitor renal function Monitor lytes Keep potassium > 4, magnesium > 2 Strict I's and O's Fluid restriction to 1500 mL/day Daily weights Leukocytosis today however no fever, or signs of infectious etiologies we will continue to monitor Continue HHART meds will start Iron supplementation - Cardiology consult Dr. Montoya, recs appreciated Nephrology consult Dr. Gupta, recs appreciated CODE: Full Diet: cardiac DVT ppx: heparin subQ GI: Famotidine Dispo: Resolution of acute exacerbation of heart failure Time spent on this encounter was 38 minutes which included 22 minutes of counseling and care coordination. I discussed with the nurse at bedside and ne phrology, coverage specialist. Time of note may not reflect time patient was seen. Luis Nelson D.O Aug 28, 2020 10:20
--- NOTE | 2020-08-28 10:50 | NUR ---
NURSE NOTES: Dr Montoya visited pt and ordered to change Dobutamine to 2 mcg/kg/min, noted and carried out. will continue to monitor.
[2020-08-28] MEDS: DOBUTamine 250mg/250ml Premix 250 ML IV SCH ×2 (10:57→16:16)
[2020-08-28 11:56] VITALS: BP 92/58
[2020-08-28] MEDS: cefTRIAXone 1gm/D5W 55ml IVPB SCH ×2 (12:06)
--- NOTE | 2020-08-28 12:58 | NUR ---
RADIOLOGY DEPT., CHEST X-RAY DONE.-P.DYE
--- NOTE | 2020-08-28 14:21 | Diagnostic Imaging Report ---
EXAM: US Retroperitoneal Limited, Renal CLINICAL HISTORY: Diabetes mellitus TECHNIQUE: Real-time limited ultrasound of the retroperitoneum with image documentation. The exam was obtained on 08/26/20 however not submitted for interpretation until 08/28/20. COMPARISON: No relevant prior studies available. FINDINGS: Right kidney: The right kidney measures 11.1 x 5.3 x 5.2 cm. Normal cortical thickness. No visible parenchymal lesions. No visible stones. No hydronephrosis. Left kidney: 1.4 x 1.3 x 1.1 cm cortical cyst in the left kidney, with thin internal septations. The left kidney measures 11.1 x 6.7 x 5.5 cm. Normal cortical thickness. No visible stones. No hydronephrosis. Bladder: Mildly trabeculated urinary bladder wall, possibly related to mild chronic obstruction. The urinary bladder has a prevoid volume of 280 cc and was not able to void during this exam. Free fluid: Trace free fluid in the right upper quadrant adjacent to the liver. Other findings: Enlarged prostate gland measuring 4.5 x 4.0 x 3.9 cm with estimated volume of 36.7 cc. IMPRESSION: 1. 1.4 x 1.3 x 1.1 cm cortical cyst in the left kidney, with thin internal septations. This is most likely benign cyst, however if there is continued concern this can be further evaluated with CT or MRI in 6-12 months. 2. Trace free fluid in the right upper quadrant adjacent to the liver. 3. Mildly trabeculated urinary bladder wall, possibly related to mild chronic obstruction. 4. Enlarged prostate gland measuring 4.5 x 4.0 x 3.9 cm with estimated volume of 36.7 cc.
--- NOTE | 2020-08-28 15:24 | NUR ---
insurance CLINICALS FAXED TO [facility] [phone]
[2020-08-28 15:47] VITALS: BP 98/67
--- NOTE | 2020-08-28 15:59 | NUR ---
[employer]ET [employer] SAL[employer] PROFESSIONAL SI: CHF EXACERBATION T. 98.4 HR 87 RR 20 B/P 98/67 BUN 26 CR 1.9 WBC 12.3 IS: DOBUTAMINE GTT LASIX IV CEFTRIAXONE IV HEPARIN SUBC TELE STATUS
--- NOTE | 2020-08-28 16:00 | NUR ---
MILITARY PERSONNEL SPECIALIST NOTES CLINICALS REVIEWED AND FAXED.
--- NOTE | 2020-08-28 16:06 | Cardiac Electrophysiology PN ---
Assessment/Plan Assessment/Plan 1. Exacerbation of congestive heart failure with ejection fraction of 30%. Patient is also in acute renal failure with BUN of 51 and creatinine of 3.0 and BNP of 22,000. Repeat echocardiogram showed EF 20% Decrease dobutamine drip to 2 mcg and continue Lasix 40 iv q 6. Hold off on Coreg, lisinopril, and Aldactone in view of starting dobutamine as well as acute renal failure. S/P PICC line 2. Troponin elevation, could be due to patient's renal failure with creatinine of 3.5. 3. Acute renal failure. Again, the creatinine was 1.2 on 06/06/2020 and on admission was 3.0, likely due to cardiorenal syndrome.Avoid ACEI and ARB Cr improved to 1.9 on Dobutamine and iv Lasix. 4. Hypertension. On Lasix and dobutamine 5. Incomplete left bundle-branch block. At some point, patient would need ischemic evaluation, but at this time, patient in congestive heart failure with a creatinine of 3 and is not a candidate for cardiac catheterization. 6. HIV. Patient is on anti-retroviral therapy including Prezcobix and Tivicay. MILY RN Subjective Subjective CHF exacerbation EF 30% in 05/2020 and now 20%. Also in ARF with CR 1.2 increased to 3.0 since 8 Feeling better on Dobutamine drip at 3 and Lasix 40 iv q 6 hr Objective Last 24 Hour Vital Signs Date Time Temp Pulse Resp B/P (MAP) Pulse Ox O2 Delivery O2 Flow Rate FiO2 08/28/20 15:47 98.4 87 20 98/67 (77) 98 08/28/20 11:56 98.8 98 20 92/58 (69) 97 08/28/20 11:38 92 08/28/20 10:57 98/62 08/28/20 09:00 Room Air 08/28/20 08:00 99.0 111 18 98/62 (74) 99 08/28/20 07:33 106 08/28/20 04:00 121 08/28/20 04:00 97.7 121 20 122/66 (84) 97 08/28/20 00:00 106 08/28/20 00:00 97.0 106 20 111/73 (86) 97 08/27/20 21:00 Room Air 08/27/20 20:00 100 08/27/20 20:00 97.2 100 20 105/62 (76) 100 08/27/20 17:26 91/58 08/27/20 17:00 96.5 91 20 91/58 (69) 98 08/27/20 16:43 82 Intake and Output 08/27/20 08/28/20 19:00 07:00 Intake Total 544.786 ml 599.28 ml Output Total 1300 ml 2000 ml Balance -755.214 ml -1400.72 ml Intake Oral 300 ml 500 ml IV Total 244.786 ml 99.28 ml Output Urine Total 1300 ml 2000 ml # Voids 3 # Bowel Movements 1 Laboratory Tests Test 08/27/20 17:13 08/27/20 17:23 08/27/20 20:09 08/28/20 05:00 POC Whole Blood Glucose 129 MG/DL (74-106) H 158 MG/DL (74-106) H Potassium Level 3.2 MMOL/L (3.5-5.1) L 3.8 MMOL/L (3.5-5.1) White Blood Count 12.3 K/UL (4.8-10.8) H Red Blood Count 3.77 M/UL (4.70-6.10) L Hemoglobin 10.3 G/DL (14.2-18.0) L Hematocrit 33.2 % (42.0-52.0) L Mean Corpuscular Volume 88 FL (80-99) Mean Corpuscular Hemoglobin 27.2 PG (27.0-31.0) Mean Corpuscular Hemoglobin Concent 30.9 G/DL (32.0-36.0) L Red Cell Distribution Width 22.8 % (11.6-14.8) H Platelet Count 261 K/UL (150-450) Mean Platelet Volume 6.6 FL (6.5-10.1) Neutrophils (%) (Auto) % (45.0-75.0) Lymphocytes (%) (Auto) % (20.0-45.0) Monocytes (%) (Auto) % (1.0-10.0) Eosinophils (%) (Auto) % (0.0-3.0) Basophils (%) (Auto) % (0.0-2.0) Sodium Level 140 MMOL/L (136-145) Chloride Level 102 MMOL/L (98-107) Carbon Dioxide Level 27 MMOL/L (21-32) Anion Gap 11 mmol/L (5-15) Blood Urea Nitrogen 26 mg/dL (7-18) H Creatinine 1.9 MG/DL (0.55-1.30) H Estimat Glomerular Filtration Rate 34.5 mL/min (>60) Glucose Level 175 MG/DL (74-106) H Calcium Level 8.0 MG/DL (8.5-10.1) L Magnesium Level 2.0 MG/DL (1.8-2.4) Test 08/28/20 05:10 08/28/20 08:15 08/28/20 11:00 08/28/20 16:00 POC Whole Blood Glucose Pending Pending 229 MG/DL (74-106) H Urine Color Pale yellow Urine Appearance Clear Urine pH 5 (4.5-8.0) Urine Specific [place] 1.010 (1.005-1.035) Urine Protein 1+ (NEGATIVE) H Urine Glucose (UA) 1+ (NEGATIVE) H Urine Ketones Negative (NEGATIVE) Urine Blood Negative (NEGATIVE) Urine Nitrite Negative (NEGATIVE) Urine Bilirubin Negative (NEGATIVE) Urine Urobilinogen Normal MG/DL (0.0-1.0) Urine Leukocyte Esterase 2+ (NEGATIVE) H Urine RBC 0 /HPF (0 - 0) Urine WBC 5-10 /HPF (0 - 0) H Urine Squamous Epithelial Cells Occasional /LPF Urine Bacteria Few /HPF (NONE) Urine Mucus Few /LPF (NONE/OCC) H Objective HEAD AND NECK: Mild JVD. LUNGS: Coarse rhonchi. CARDIOVASCULAR: regular S1 and S2 with no gallop. ABDOMEN: Soft. EXTREMITIES: 2+ bilateral pitting edema. Grabiel Montoya MD Aug 28, 2020 16:06
--- NOTE | 2020-08-28 19:05 | NUR ---
NURSE NOTES: Patient received from Nile HAYNES. Patient in stable condition. Alert and oriented x4 dominican speaking. Saturating well on Room air. No c/o pain comfortable in bed and no s/s of distress. IV site on Left AC 18G patent and intact SL. PICC Line on Left upper arm patent and intact running Dobutamine @ 2mcg/kg/hr. Bed in lowest position and locked. Call light and bedside table within reach. Will continue plan of care.
--- NOTE | 2020-08-28 19:25 | NUR ---
NURSE HAND-OFF REPORT: Important Events on Shift: Patient Status: Diet: Pending Orders: Pending Results/Labs: Pending MD notification: Latest Vital Signs: Temperature 98.4 , Pulse 94 , B/P 98 /67 , Respiratory Rate 20 , O2 SAT 98 , Room Air, O2 Flow Rate . Vital Sign Comment: EKG Rhythm: Sinus Rhythm Rhythm change?: N MD Notified?: Y -Dr Lindsay COLON Response: No New Orders Received Latest Davis Fall Score: 45 Fall Risk: High Risk Safety Measures: Call light Within Reach, Bed Alarm Zone 1, Side Rails Side Rails x3, Bed position Low and Locked. Fall Precautions: Yellow Socks Yellow Gown Patient Fall Education Report given to . Pt is stable, no stress noted. Endorsed plan of care, Endorsed to monitor BP and WBC.
[2020-08-28 20:00] VITALS: BP 106/51
[2020-08-28] MEDS: Atorvastatin 20mg tab ORAL SCH (21:04)
[2020-08-28] MEDS: Dyna-Hex 2% Top Sol 2oz TOPIC SCH (21:06)
[2020-08-29] VITALS: BP 95/60
[2020-08-29 03:52] VITALS: BP 101/65
[2020-08-29] MEDS: NovoLOG Insulin Flexpen SUBQ SCH ×4 (05:43→21:15)
[2020-08-29 07:13] LABS: BASOPHILS % (AUTO) 0.7 % (0.0-2.0); EOSINOPHILS % (AUTO) 0.9 % (0.0-3.0); HEMATOCRIT 30.2 % (42.0-52.0); HEMOGLOBIN 9.4 G/DL (14.2-18.0); LYMPHOCYTES % (AUTO) 17.4 % (20.0-45.0); MEAN CORPUSCULAR VOLUME 90 FL (80-99); MONOCYTES % (AUTO) 7.9 % (1.0-10.0); NEUTROPHILS % (AUTO) 73.1 % (45.0-75.0); PLATELET COUNT 240 K/UL (150-450); RED BLOOD COUNT 3.37 M/UL (4.70-6.10); RED CELL DISTRIBUTION WIDTH 22.7 % (11.6-14.8); WHITE BLOOD COUNT 10.5 K/UL (4.8-10.8)
--- NOTE | 2020-08-29 07:22 | NUR ---
CASE MANAGEMENT:REVIEW 08/29/20 SI: AC/CHR CHF. NSTEMI. HIV 99.2 112 18 95/60 97% ON RA H/H-9.4/30.2 IS: DOBUTAMINE GTT ~ TITRATING IV LASIX Q12HRS IV ROCEPHIN Q24 HEPARIN SQ HAART REGIMEN : TELEMETRY STATUS DCP: FROM HOME
--- NOTE | 2020-08-29 07:26 | NUR ---
NURSE HAND-OFF REPORT: Important Events on Shift:[No important events] Patient Status: [Stable] Diet: [Cardiac] Pending Orders: [] Pending Results/Labs:[] Pending MD notification:[] Latest Vital Signs: Temperature 98.2 , Pulse 112 , B/P 101 /65 , Respiratory Rate 18 , O2 SAT 97 , Room Air, O2 Flow Rate . Vital Sign Comment: [] EKG Rhythm: Sinus Tachycardia Rhythm change?: N MD Notified?: Puneet Montoya MD Response: No New Orders Received Latest Davis Fall Score: 45 Fall Risk: High Risk Safety Measures: Call light Within Reach, Bed Alarm Zone 1, Side Rails Side Rails x3, Bed position Low and Locked. Fall Precautions: Yellow Socks Yellow Gown Patient Fall Education Report given to [Grace HAYNES].
[2020-08-29 07:59] LABS: CALCIUM 7.8 MG/DL (8.5-10.1); CREATININE 1.8 MG/DL (0.55-1.30); POTASSIUM 3.5 MMOL/L (3.5-5.1)
[2020-08-29 08:00] VITALS: BP 128/81
[2020-08-29] MEDS: Heparin 5000 units/ml inj SUBQ SCH ×2 (08:40→20:49)
[2020-08-29] MEDS: Patient's Own Med - Tivicay 50mg ORAL SCH (08:41)
[2020-08-29] MEDS: Patient's Own Med - Prezcobix 800/150mg ORAL SCH (08:41)
--- NOTE | 2020-08-29 08:57 | General Progress Note ---
Subjective Constitutional: Denies: no symptoms, chills, diaphoresis, fever, malaise, weakness, other HEENT: Denies: no symptoms, eye pain, blurred vision, tearing, double vision, ear pain, ear discharge, nose pain, nose congestion, throat pain, throat swelling, mouth pain, mouth swelling, other Cardiovascular: Denies: no symptoms, chest pain, edema, irregular heart rate, lightheadedness, palpitations, syncope, other Respiratory: Denies: no symptoms, cough, orthopnea, shortness of breath, SOB with excertion, SOB at rest, sputum, stridor, wheezing, other Gastrointestinal/Abdominal: Denies: no symptoms, abdomen distended, abdominal pain, black stools, tarry stools, blood in stool, constipated, diarrhea, difficulty swallowing, nausea, poor appetite, poor fluid intake, rectal bleeding, vomiting, other Genitourinary: Denies: no symptoms, burning, discharge, frequency, flank pain, hematuria, incontinence, pain, urgency, other Neurologic/Psychiatric: Denies: no symptoms, anxiety, depressed, emotional problems, headache, numbness, paresthesia, pre-existing deficit, seizure, tingling, tremors, weakness, other Endocrine: Denies: no symptoms, excessive sweating, flushing, intolerance to cold, intolerance to heat, increased hunger, increased thirst, increased urine, unexplained weight gain, unexplained weight loss, other Hematologic/Lymphatic: Denies: no symptoms, anemia, easy bleeding, easy bruising, other Allergies: Coded Allergies: No Known Allergies (Unverified , 06/03/20) Subjective No acute events overnight. Resting comfortably in bed. Denies any shortness of breath, chest pain, orthopnea. Extremity edema bilaterally improving. Objective Last 24 Hour Vital Signs Date Time Temp Pulse Resp B/P (MAP) Pulse Ox O2 Delivery O2 Flow Rate FiO2 08/29/20 08:00 97.6 59 19 128/81 (97) 99 08/29/20 04:00 112 08/29/20 03:52 98.2 98 18 101/65 (77) 97 08/29/20 00:00 98.4 103 18 95/60 (72) 97 08/29/20 00:00 97 08/28/20 21:00 Room Air 08/28/20 20:00 95 08/28/20 20:00 97.5 67 20 106/51 (69) 98 08/28/20 16:16 94 08/28/20 16:16 98/67 08/28/20 15:47 98.4 87 20 98/67 (77) 98 08/28/20 11:56 98.8 98 20 92/58 (69) 97 08/28/20 11:38 92 08/28/20 10:57 98/62 08/28/20 09:00 Room Air Intake and Output 08/28/20 08/29/20 19:00 07:00 Intake Total 510.013 ml Output Total 800 ml 800 ml Balance -289.987 ml -800 ml Intake Oral 360 ml IV Total 150.013 ml Output Urine Total 800 ml 800 ml # Voids 3 # Bowel Movements 1 Laboratory Tests 08/28/20 11:00: POC Whole Blood Glucose [Pending] 08/28/20 16:00: POC Whole Blood Glucose 229H 08/28/20 20:11: POC Whole Blood Glucose 135H 08/29/20 05:19: POC Whole Blood Glucose [Pending] 08/29/20 06:00: White Blood Count 10.5, Red Blood Count 3.37L, Hemoglobin 9.4L, Hematocrit 30.2L , Mean Corpuscular Volume 90, Mean Corpuscular Hemoglobin 27.8, Mean Corpuscular Hemoglobin Concent 31.1L, Red Cell Distribution Width 22.7H, Platelet Count 240, Mean Platelet Volume 6.8, Neutrophils (%) (Auto) 73.1, Lymphocytes (%) (Auto) 17.4L, Monocytes (%) (Auto) 7.9, Eosinophils (%) (Auto) 0.9, Basophils (%) (Auto) 0.7, Sodium Level 140, Potassium Level 3.5, Chloride Level 103, Carbon Dioxide Level 28, Anion Gap 9, Blood Urea Nitrogen 28H, Creatinine 1.8H, Estimat Glomerular Filtration Rate 36.7, Glucose Level 132H, Calcium Level 7.8L, Magnesium Level 1.9 Height (Feet): 5 Height (Inches): 5.00 Weight (Pounds): 152 General Appearance: no apparent distress, alert, alert oriented x3 EENT: PERRL/EOMI Neck: non-tender, supple Cardiovascular: normal rate, regular rhythm, no JVD Respiratory/Chest: lungs clear, normal breath sounds, respiratory distress Abdomen: normal bowel sounds, non tender, soft Extremities: normal range of motion Edema: 1+ Leg (L), 1+ Leg (R) Neurologic: engineering agent II-XII grossly normal, alert, oriented x 3 Skin: normal pigmentation, warm/dry Assessment/Plan Assessment/Plan: Andrae Davis is a 80-year-old male with PMH of HFrEF, HTN, HIV, IDDM, HLD who presents with SOB. # Acute on chronic decompensated HFrEFimproving # NSTEMI type I versus type II # AHSAN versus AHSAN on CKD 2/2 cardiorenal syndrome versus ATNimproving # Pulmonary hypertension likely class II # History of HIV on HHART # Hyperlipidemia # Normocytic anemia 2/2 LJ # Troponin elevation # HTN # Incomplete LBBB P: -Continue dopamine supplementation for hemodynamics per cardiology Decrease Lasix to 40 mg IV twice daily Echo showing diffuse global hypokinesia, EF 20- 25 %, RSVP 75 Hold beta-blockers and TONY/ARB/Arni until patient more euvolemic and AHSAN resolved -Leukocytosis improved morning - f/u BC, UC - UA +UTI; continue Rocephin for now Monitor renal function Monitor lytes Keep potassium > 4, magnesium > 2 Strict I's and O's Fluid restriction to 1500 mL/day Daily weights Continue HHART meds Continue iron supplementation - Cardiology consult Dr. Montoya, recs appreciated Nephrology consult Dr. Gupta, recs appreciated CODE: Full Diet: cardiac DVT ppx: heparin subQ GI: Famotidine Dispo: Resolution of acute exacerbation of heart failure Time spent on this encounter was 39 minutes which included 23 minutes of counseling and care coordination. 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 Time of note may not reflect time patient was seen. Luis Nelson D.O Aug 29, 2020 08:57
--- NOTE | 2020-08-29 09:18 | Nephrology Progress Note ---
Assessment/Plan Plan #AHSAN due to CRS1 #acute on chronic decompensated CHF #h/o HFref #HTN #DM #HIV #Anemia - lasix 40 IV q6hr - echo noted - dobutamine drip - monitor UOP - monitor weights - monitor renal parameters - replete lytes -avoid nephrotoxins time spent 65min Subjective ROS Limited/Unobtainable: No Constitutional: Reports: weakness HEENT: Denies: no symptoms, eye pain, blurred vision, tearing, double vision, ear pain, ear discharge, nose pain, nose congestion, throat pain, throat swelling, mouth pain, mouth swelling, other Genitourinary: Denies: no symptoms, burning, discharge, frequency, flank pain, hematuria, incontinence, pain, urgency, other Neurologic/Psychiatric: Denies: no symptoms, anxiety, depressed, emotional problems, headache, numbness, paresthesia, pre-existing deficit, seizure, tingling, tremors, weakness, other Subjective Cr slowly downtrending less dyspnea BP borderline on dobutamin drip Objective Objective Last 24 Hour Vital Signs Date Time Temp Pulse Resp B/P (MAP) Pulse Ox O2 Delivery O2 Flow Rate FiO2 08/29/20 08:00 97.6 59 19 128/81 (97) 99 08/29/20 04:00 112 08/29/20 03:52 98.2 98 18 101/65 (77) 97 08/29/20 00:00 98.4 103 18 95/60 (72) 97 08/29/20 00:00 97 08/28/20 21:00 Room Air 08/28/20 20:00 95 08/28/20 20:00 97.5 67 20 106/51 (69) 98 08/28/20 16:16 94 08/28/20 16:16 98/67 08/28/20 15:47 98.4 87 20 98/67 (77) 98 08/28/20 11:56 98.8 98 20 92/58 (69) 97 08/28/20 11:38 92 08/28/20 10:57 98/62 Intake and Output 08/28/20 08/29/20 19:00 07:00 Intake Total 510.013 ml Output Total 800 ml 800 ml Balance -289.987 ml -800 ml Intake Oral 360 ml IV Total 150.013 ml Output Urine Total 800 ml 800 ml # Voids 3 # Bowel Movements 1 Laboratory Tests 08/28/20 11:00: POC Whole Blood Glucose [Pending] 08/28/20 16:00: POC Whole Blood Glucose 229H 08/28/20 20:11: POC Whole Blood Glucose 135H 08/29/20 05:19: POC Whole Blood Glucose [Pending] 08/29/20 06:00: White Blood Count 10.5, Red Blood Count 3.37L, Hemoglobin 9.4L, Hematocrit 30.2L , Mean Corpuscular Volume 90, Mean Corpuscular Hemoglobin 27.8, Mean Corpuscular Hemoglobin Concent 31.1L, Red Cell Distribution Width 22.7H, Platelet Count 240, Mean Platelet Volume 6.8, Neutrophils (%) (Auto) 73.1, Lymphocytes (%) (Auto) 17.4L, Monocytes (%) (Auto) 7.9, Eosinophils (%) (Auto) 0.9, Basophils (%) (Auto) 0.7, Sodium Level 140, Potassium Level 3.5, Chloride Level 103, Carbon Dioxide Level 28, Anion Gap 9, Blood Urea Nitrogen 28H, Creatinine 1.8H, Estimat Glomerular Filtration Rate 36.7, Glucose Level 132H, Calcium Level 7.8L, Magnesium Level 1.9 Height (Feet): 5 Height (Inches): 5.00 Weight (Pounds): 152 Brady Gupta M.D. Aug 29, 2020 09:18
--- NOTE | 2020-08-29 11:30 | Cardiac Electrophysiology PN ---
Assessment/Plan Assessment/Plan 1. Exacerbation of congestive heart failure with ejection fraction of 30% in 05/2020 at [place]. Patient is also in acute renal failure with BUN of 51 and creatinine of 3.0 and BNP of 22,000. Repeat echocardiogram showed EF still 20% Decrease dobutamine drip to 1 mcg and Lasix 40 iv bid Hold off on Coreg, lisinopril, and Aldactone in view of starting dobutamine as well as acute renal failure. S/P PICC line DW Dr Park, his operator supply. 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 Will need prophylactic ICD 2. Troponin elevation, could be due to patient's renal failure with creatinine of 3.5. 3. Acute renal failure. Again, the creatinine was 1.2 on 06/06/2020 and on admission was 3.0, likely due to cardiorenal syndrome.Avoid ACEI and ARB Cr improved to 1.8 today on Dobutamine and iv Lasix. 4. Hypertension. On Lasix and dobutamine 5. Incomplete left bundle-branch block. Will check the ischemia evaluation by Dr Park's office 6. HIV. Patient is on anti-retroviral therapy including Prezcobix and Tivicay. DW RN DW Dr Park, his operator supply. Subjective Subjective CHF exacerbation EF 30% in 05/2020 and now 20%. Also in ARF with CR 1.2 increased to 3.0 since 8 Feeling better on Dobutamine drip at 2 and Lasix 40 iv daily Objective Last 24 Hour Vital Signs Date Time Temp Pulse Resp B/P (MAP) Pulse Ox O2 Delivery O2 Flow Rate FiO2 08/29/20 09:00 Room Air 08/29/20 08:00 97.6 59 19 128/81 (97) 99 08/29/20 08:00 97 08/29/20 04:00 112 08/29/20 03:52 98.2 98 18 101/65 (77) 97 08/29/20 00:00 98.4 103 18 95/60 (72) 97 08/29/20 00:00 97 08/28/20 21:00 Room Air 08/28/20 20:00 95 08/28/20 20:00 97.5 67 20 106/51 (69) 98 08/28/20 16:16 94 11/19/20 16:16 98/67 08/28/20 15:47 98.4 87 20 98/67 (77) 98 08/28/20 11:56 98.8 98 20 92/58 (69) 97 08/28/20 11:38 92 Intake and Output 08/28/20 08/29/20 19:00 07:00 Intake Total 510.013 ml Output Total 800 ml 800 ml Balance -289.987 ml -800 ml Intake Oral 360 ml IV Total 150.013 ml Output Urine Total 800 ml 800 ml # Voids 3 # Bowel Movements 1 Laboratory Tests Test 08/28/20 16:00 08/28/20 20:11 08/29/20 05:19 08/29/20 06:00 POC Whole Blood Glucose 229 MG/DL (74-106) H 135 MG/DL (74-106) H Pending White Blood Count 10.5 K/UL (4.8-10.8) Red Blood Count 3.37 M/UL (4.70-6.10) L Hemoglobin 9.4 G/DL (14.2-18.0) L Hematocrit 30.2 % (42.0-52.0) L Mean Corpuscular Volume 90 FL (80-99) Mean Corpuscular Hemoglobin 27.8 PG (27.0-31.0) Mean Corpuscular Hemoglobin Concent 31.1 G/DL (32.0-36.0) L Red Cell Distribution Width 22.7 % (11.6-14.8) H Platelet Count 240 K/UL (150-450) Mean Platelet Volume 6.8 FL (6.5-10.1) Neutrophils (%) (Auto) 73.1 % (45.0-75.0) Lymphocytes (%) (Auto) 17.4 % (20.0-45.0) L Monocytes (%) (Auto) 7.9 % (1.0-10.0) Eosinophils (%) (Auto) 0.9 % (0.0-3.0) Basophils (%) (Auto) 0.7 % (0.0-2.0) Sodium Level 140 MMOL/L (136-145) Potassium Level 3.5 MMOL/L (3.5-5.1) Chloride Level 103 MMOL/L (98-107) Carbon Dioxide Level 28 MMOL/L (21-32) Anion Gap 9 mmol/L (5-15) Blood Urea Nitrogen 28 mg/dL (7-18) H Creatinine 1.8 MG/DL (0.55-1.30) H Estimat Glomerular Filtration Rate 36.7 mL/min (>60) Glucose Level 132 MG/DL (74-106) H Calcium Level 7.8 MG/DL (8.5-10.1) L Magnesium Level 1.9 MG/DL (1.8-2.4) Objective HEAD AND NECK: Mild JVD. LUNGS: Coarse rhonchi. CARDIOVASCULAR: regular S1 and S2 with no gallop. ABDOMEN: Soft. EXTREMITIES: 2+ bilateral pitting edema. Grabiel Montoya MD Aug 29, 2020 11:30
[2020-08-29 12:00] VITALS: BP 120/63
--- NOTE | 2020-08-29 13:50 | NUR ---
INSURANCE CLINICALS/REVIEW FAXED TO [facility] [phone] [facility] [phone]
[2020-08-29] MEDS: cefTRIAXone 1gm/D5W 55ml IVPB SCH ×2 (13:55)
[2020-08-29 16:00] VITALS: BP 123/67
--- NOTE | 2020-08-29 19:15 | NUR ---
NURSE NOTES: Report received from IVY Edwards. Patient awake alert and oriented x4 Serbian speaking but able to understand some Romanian. On 3 LPM nasal canula. cardiac monitor intact. Call light and bedside table with in reach. Bed at lowest position locked side rails up and bed alarm activated. Will continue with plan of care.
--- NOTE | 2020-08-29 19:48 | NUR ---
NURSE HAND-OFF REPORT: Important Events on Shift: Dabutmine drip changed to 1mcg/kg/min and O2 placed on 3L Patient Status: Stable Diet: Cardiac Pending Orders: Pending Results/Labs: Pending MD notification: Latest Vital Signs: Temperature 98.1 , Pulse 97 , B/P 123 /67 , Respiratory Rate 19 , O2 SAT 98 , Room Air, O2 Flow Rate . Vital Sign Comment: EKG Rhythm: Sinus Rhythm Rhythm change?: N Notified?: N -Dr Lindsay COLON Response: No New Orders Received Latest Davis Fall Score: 45 Fall Risk: High Risk Safety Measures: Call light Within Reach, Bed Alarm Zone 1, Side Rails Side Rails x2, Bed position Low and Locked. Fall Precautions: Yellow Socks Yellow Gown Patient Fall Education Report given to Corie.
[2020-08-29 20:00] VITALS: BP 94/66
--- NOTE | 2020-08-29 20:04 | Diagnostic Imaging Report ---
EXAM: XR Chest, 1 View CLINICAL HISTORY: INFECT TECHNIQUE: Frontal view of the chest. COMPARISON: 08/25/2020 FINDINGS: Lungs: Worsening moderate diffuse right lung consolidation most pronounced in the medial apex and mid/lower lung. Similar retrocardiac atelectasis without or with consolidation. Low lung volumes with bronchovascular crowding. Pleural space: Unremarkable. No pneumothorax. Heart: Unchanged cardiomegaly. Mediastinum: Unremarkable. Bones/joints: No acute abnormality Tubes, lines and devices: New left upper extremity PICC with tip in the cavoatrial junction region. IMPRESSION: 1. New left upper extremity PICC with tip in the cavoatrial junction region. 2. Worsening moderate diffuse right lung consolidation most pronounced in the medial apex and mid/lower lung. 3. Similar retrocardiac atelectasis without or with consolidation. 4. Low lung volumes with bronchovascular crowding. 5. Unchanged cardiomegaly.
[2020-08-29] MEDS: Dyna-Hex 2% Top Sol 2oz TOPIC SCH (20:46)
[2020-08-29] MEDS: Atorvastatin 20mg tab ORAL SCH (20:47)
[2020-08-30] VITALS: BP 90/71
[2020-08-30 04:00] VITALS: BP 97/65
[2020-08-30] MEDS: NovoLOG Insulin Flexpen SUBQ SCH ×4 (06:17→21:37)
[2020-08-30 06:50] LABS: HEMATOCRIT 32.2 % (42.0-52.0); MEAN CORPUSCULAR VOLUME 90 FL (80-99); PLATELET COUNT 223 K/UL (150-450); RED BLOOD COUNT 3.57 M/UL (4.70-6.10); WHITE BLOOD COUNT 18.2 K/UL (4.8-10.8)
[2020-08-30 07:15] LABS: CALCIUM 7.8 MG/DL (8.5-10.1); CREATININE 3.7 MG/DL (0.55-1.30); POTASSIUM 5.6 MMOL/L (3.5-5.1)
--- NOTE | 2020-08-30 07:20 | NUR ---
CASE MANAGEMENT:REVIEW 08/30/20 SI: AC/CHR CHF. NSTEMI. HIV 97.1 108 20 90/71 94% ON RA WBC+18.2 K+5.6 BUN+55 CR+3.7 IS: DOBUTAMINE GTT ~ TITRATING FERGON PO QOD IV LASIX Q12HRS IV ROCEPHIN Q24 HEPARIN SQ HAART REGIMEN : TELEMETRY STATUS DCP: FROM HOME PLAN: NOT READY FOR DISCHARGE D/T WBC'S, CR AND BLOOD PRESSURE
--- NOTE | 2020-08-30 07:29 | NUR ---
NURSE NOTES: Pt received from Corie burroughs. pt in bed. Dobutamine running in left ua picc line at 1mc/kg. per pt no pain or sob at this time. bed low and locked, yarelis light within reach.
[2020-08-30 08:00] VITALS: BP 84/57
[2020-08-30] MEDS ORDERED: DOBUTamine 250mg/250ml Premix 250 ML IV SCH (08:00)
--- NOTE | 2020-08-30 08:01 | NUR ---
HAND-OFF: Report given to Clarai RN. Endorsed plan of care.
[2020-08-30] MEDS ORDERED: Cefepime HCl 1 GM in D5W 55 ML IVPB SCH (09:00)
[2020-08-30] MEDS ORDERED: Ferrous Gluconate 324 MG TAB ORAL SCH (09:00)
--- NOTE | 2020-08-30 09:01 | General Progress Note ---
Subjective Constitutional: Denies: no symptoms, chills, diaphoresis, fever, malaise, weakness, other HEENT: Denies: no symptoms, eye pain, blurred vision, tearing, double vision, ear pain, ear discharge, nose pain, nose congestion, throat pain, throat swelling, mouth pain, mouth swelling, other Cardiovascular: Denies: no symptoms, chest pain, edema, irregular heart rate, lightheadedness, palpitations, syncope, other Respiratory: Denies: no symptoms, cough, orthopnea, shortness of breath, SOB with excertion, SOB at rest, sputum, stridor, wheezing, other Gastrointestinal/Abdominal: Denies: no symptoms, abdomen distended, abdominal pain, black stools, tarry stools, blood in stool, constipated, diarrhea, difficulty swallowing, nausea, poor appetite, poor fluid intake, rectal bleeding, vomiting, other Genitourinary: Denies: no symptoms, burning, discharge, frequency, flank pain, hematuria, incontinence, pain, urgency, other Neurologic/Psychiatric: Denies: no symptoms, anxiety, depressed, emotional problems, headache, numbness, paresthesia, pre-existing deficit, seizure, tingling, tremors, weakness, other Endocrine: Denies: no symptoms, excessive sweating, flushing, intolerance to cold, intolerance to heat, increased hunger, increased thirst, increased urine, unexplained weight gain, unexplained weight loss, other Hematologic/Lymphatic: Denies: no symptoms, anemia, easy bleeding, easy bruising, other Allergies: Coded Allergies: No Known Allergies (Unverified , 06/03/20) Subjective No acute events overnight. Patient resting comfortably in bed. Shortness of breath mildly persist. Lower extremity edema stable. Patient notes has not been able to urinate over the last several hours. Will have bladder scan done. Objective Last 24 Hour Vital Signs Date Time Temp Pulse Resp B/P (MAP) Pulse Ox O2 Delivery O2 Flow Rate FiO2 08/30/20 04:00 82 08/30/20 04:00 97.5 80 23 97/65 (76) 96 08/30/20 00:00 98 08/30/20 00:00 97.1 108 20 90/71 (77) 94 08/29/20 21:00 Room Air 08/29/20 20:00 97.1 110 30 94/66 (75) 92 08/29/20 20:00 110 08/29/20 16:24 97 08/29/20 16:00 98.1 78 19 123/67 (85) 98 08/29/20 12:00 98.2 90 20 120/63 (82) 99 08/29/20 12:00 94 08/29/20 09:00 Room Air Intake and Output 08/29/20 08/30/20 19:00 07:00 Intake Total 960 ml 240 ml Output Total 900 ml Balance 60 ml 240 ml Intake Oral 960 ml 240 ml Output Urine Total 900 ml # Voids 3 3 # Bowel Movements 1 Laboratory Tests 08/29/20 11:56: POC Whole Blood Glucose 274H 08/29/20 17:18: POC Whole Blood Glucose 274H 08/29/20 21:05: POC Whole Blood Glucose [Pending] 08/30/20 06:00: White Blood Count 18.2#H, Red Blood Count 3.57L, Hemoglobin 10.0L, Hematocrit 32.2L, Mean Corpuscular Volume 90, Mean Corpuscular Hemoglobin 27.8, Mean Corpuscular Hemoglobin Concent 30.9L, Red Cell Distribution Width 23.0H, Platelet Count 223, Mean Platelet Volume 7.2, Neutrophils (%) (Auto) , Lymphocytes (%) (Auto) , Monocytes (%) (Auto) , Eosinophils (%) (Auto) , Basophils (%) (Auto) , Neutrophils % (Manual) [Pending], Lymphocytes % (Manual) [Pending], Platelet Estimate [Pending], Platelet Morphology [Pending], Sodium Level 135L, Potassium Level 5.6#H, Chloride Level 99, Carbon Dioxide Level 19L, Anion Gap 17H, Blood Urea Nitrogen 55H, Creatinine 3.7#H, Estimat Glomerular Filtration Rate 16.0, Glucose Level 183H, Calcium Level 7.8L, Magnesium Level 2.6H 08/30/20 06:14: POC Whole Blood Glucose [Pending] Height (Feet): 5 Height (Inches): 5.00 Weight (Pounds): 152 General Appearance: no apparent distress, alert, alert oriented x3 EENT: PERRL/EOMI, normal ENT inspection Neck: non-tender, normal alignment Cardiovascular: normal rate, regular rhythm, no JVD Respiratory/Chest: normal breath sounds, crackles/rales Abdomen: normal bowel sounds, non tender, soft Extremities: normal range of motion Edema: 1+ Leg (L), 1+ Leg (R) 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 # Acute on chronic decompensated HFrEFimproving # NSTEMI type I versus type II #Hospital-acquired pneumonia #UTI # AHSAN versus AHSAN on CKD 2/2 cardiorenal syndrome versus ATNworsening today # Pulmonary hypertension likely class II # History of HIV on HHART # Hyperlipidemia # Normocytic anemia 2/2 LJ # Troponin elevation # HTN # Incomplete LBBB P: -Continue dopamine supplementation for hemodynamics per cardiology Continue Lasix to 40 mg IV twice daily Echo showing diffuse global hypokinesia, EF 20- 25 %, RSVP 75 Hold beta-blockers and TONY/ARB/Arni until patient more euvolemic and AHSAN resolved -Worsening leukocytosis today, chest x-ray shows worsening right infiltrate consolidation We will broaden antibiotics to vancomycin and cefepime Leukocytosis worsening today we will get inflammatory markers as well - f/u BC, UCnegative so far Acute rise in creatinine from 1.7-3.7, along with hyperkalemia and acidosis, will repeat labs, will give IV calcium, insulin with D50 if repeat hyperkalemia persist We will get bladder scan to rule out postobstructive retention Keep potassium > 4, magnesium > 2 Strict I's and O's Fluid restriction to 1500 mL/day Daily weights Continue HHART meds Continue iron supplementation - Cardiology consult Dr. Montoya, recs appreciated Nephrology consult Dr. Gupta, recs appreciated ID consult Dr. Mcnulty, recs appreciated Physical therapy CODE: Full Diet: cardiac DVT ppx: heparin subQ GI: Famotidine Dispo: Pending improvement of CHF exacerbation, renal failure, pneumonia Time spent on this encounter was 45 minutes which included 26 minutes of counseling and care coordination. I discussed with the nurse at bedside and nephrology, intern. Time of note may not reflect time patient was seen. Luis Nelson D.O Aug 30, 2020 09:01
[2020-08-30 09:37] LABS: BASOPHILS % (AUTO) 0.4 % (0.0-2.0); EOSINOPHILS % (AUTO) 0.1 % (0.0-3.0); HEMATOCRIT 32.8 % (42.0-52.0); HEMOGLOBIN 10.2 G/DL (14.2-18.0); LYMPHOCYTES % (AUTO) 8.8 % (20.0-45.0); MEAN CORPUSCULAR VOLUME 90 FL (80-99); MONOCYTES % (AUTO) 7.4 % (1.0-10.0); NEUTROPHILS % (AUTO) 83.3 % (45.0-75.0); PLATELET COUNT 236 K/UL (150-450); RED BLOOD COUNT 3.65 M/UL (4.70-6.10); RED CELL DISTRIBUTION WIDTH 22.1 % (11.6-14.8); WHITE BLOOD COUNT 16.8 K/UL (4.8-10.8)
[2020-08-30] MEDS: Patient's Own Med - Prezcobix 800/150mg ORAL SCH (10:00)
[2020-08-30] MEDS ORDERED: Calcium Chloride 10% 10ml carpuject IVP SCH (10:00)
[2020-08-30] MEDS ORDERED: Vancomycin 1.25gm Premix q24h IVPB SCH (10:00)
[2020-08-30] MEDS: Patient's Own Med - Tivicay 50mg ORAL SCH (10:00)
[2020-08-30] MEDS: Heparin 5000 units/ml inj SUBQ SCH ×2 (10:02→21:36)
[2020-08-30 10:28] LABS: CALCIUM 7.8 MG/DL (8.5-10.1); CREATININE 3.8 MG/DL (0.55-1.30); POTASSIUM 5.3 MMOL/L (3.5-5.1)
[2020-08-30] MEDS ORDERED: Sodium Polystyrene Sulfonate 15gm Powder ORAL SCH ×2 (10:41→11:30)
[2020-08-30] MEDS: Ferrous Gluconate 324 MG TAB ORAL SCH (11:18)
[2020-08-30 12:00] VITALS: BP 89/56
--- NOTE | 2020-08-30 12:45 | NUR ---
NURSE NOTES: Pt expressed a warm/flushingfeeling after slow IV push of Calcium Chloride. Feelling went away within [address] Nelson informed,
--- NOTE | 2020-08-30 12:51 | NUR ---
INSURANCE CLINICALS/REVIEW FAXED TO [facility] [phone] [facility] [phone]
--- NOTE | 2020-08-30 14:13 | Infectious Diseases Prog Note ---
Assessment/Plan Assessment/Plan Full consult dictated: A) 1) pneumonia, ? uti, sepsis, leukocytosis, bowen 2) pmh noted 3) allergies - nkda P) 1) vancomycin, cefepime, flagyl 2) f/u onj cultures, labs and chest x-ray 3) monitor labs 4 thank you Subjective Allergies: Coded Allergies: No Known Allergies (Unverified , 06/03/20) Objective Last 24 Hour Vital Signs Date Time Temp Pulse Resp B/P (MAP) Pulse Ox O2 Delivery O2 Flow Rate FiO2 08/30/20 12:00 97.7 89 20 89/56 (67) 96 08/30/20 12:00 80 08/30/20 09:00 Room Air 08/30/20 08:00 76 08/30/20 08:00 97.7 84 20 84/57 (66) 100 08/30/20 04:00 82 08/30/20 04:00 97.5 80 23 97/65 (76) 96 08/30/20 00:00 98 08/30/20 00:00 97.1 108 20 90/71 (77) 94 08/29/20 21:00 Room Air 08/29/20 20:00 97.1 110 30 94/66 (75) 92 08/29/20 20:00 110 08/29/20 16:24 97 08/29/20 16:00 98.1 78 19 123/67 (85) 98 Height (Feet): 5 Height (Inches): 5.00 Weight (Pounds): 152 Microbiology Date/Time Source Procedure Growth Status 08/28/20 08:00 Blood Blood Culture - Preliminary NO GROWTH AFTER 24 HOURS Resulted 08/28/20 08:00 Blood Blood Culture - Preliminary NO GROWTH AFTER 24 HOURS Resulted Laboratory Tests Test 08/29/20 17:18 08/29/20 21:05 08/30/20 06:00 08/30/20 06:14 POC Whole Blood Glucose 274 MG/DL (74-106) H Pending Pending White Blood Count 18.2 K/UL (4.8-10.8) #H Red Blood Count 3.57 M/UL (4.70-6.10) L Hemoglobin 10.0 G/DL (14.2-18.0) L Hematocrit 32.2 % (42.0-52.0) L Mean Corpuscular Volume 90 FL (80-99) Mean Corpuscular Hemoglobin 27.8 PG (27.0-31.0) Mean Corpuscular Hemoglobin Concent 30.9 G/DL (32.0-36.0) L Red Cell Distribution Width 23.0 % (11.6-14.8) H Platelet Count 223 K/UL (150-450) Mean Platelet Volume 7.2 FL (6.5-10.1) Neutrophils (%) (Auto) % (45.0-75.0) Lymphocytes (%) (Auto) % (20.0-45.0) Monocytes (%) (Auto) % (1.0-10.0) Eosinophils (%) (Auto) % (0.0-3.0) Basophils (%) (Auto) % (0.0-2.0) Differential Total Cells Counted 100 Neutrophils % (Manual) 84 % (45-75) H Lymphocytes % (Manual) 7 % (20-45) L Monocytes % (Manual) 9 % (1-10) Eosinophils % (Manual) 0 % (0-3) Basophils % (Manual) 0 % (0-2) Band Neutrophils 0 % (0-8) Platelet Estimate Adequate Platelet Morphology Normal Polychromasia 1+ Hypochromasia 1+ Anisocytosis 3+ Ovalocytes Occasional Sodium Level 135 MMOL/L (136-145) L Potassium Level 5.6 MMOL/L (3.5-5.1) #H Chloride Level 99 MMOL/L (98-107) Carbon Dioxide Level 19 MMOL/L (21-32) L Anion Gap 17 mmol/L (5-15) H Blood Urea Nitrogen 55 mg/dL (7-18) H Creatinine 3.7 MG/DL (0.55-1.30) #H Estimat Glomerular Filtration Rate 16.0 mL/min (>60) Glucose Level 183 MG/DL (74-106) H Calcium Level 7.8 MG/DL (8.5-10.1) L Magnesium Level 2.6 MG/DL (1.8-2.4) H Test 08/30/20 08:40 White Blood Count 16.8 K/UL (4.8-10.8) H Red Blood Count 3.65 M/UL (4.70-6.10) L Hemoglobin 10.2 G/DL (14.2-18.0) L Hematocrit 32.8 % (42.0-52.0) L Mean Corpuscular Volume 90 FL (80-99) Mean Corpuscular Hemoglobin 28.0 PG (27.0-31.0) Mean Corpuscular Hemoglobin Concent 31.1 G/DL (32.0-36.0) L Red Cell Distribution Width 22.1 % (11.6-14.8) H Platelet Count 236 K/UL (150-450) Mean Platelet Volume 8.2 FL (6.5-10.1) Neutrophils (%) (Auto) 83.3 % (45.0-75.0) H Lymphocytes (%) (Auto) 8.8 % (20.0-45.0) L Monocytes (%) (Auto) 7.4 % (1.0-10.0) Eosinophils (%) (Auto) 0.1 % (0.0-3.0) Basophils (%) (Auto) 0.4 % (0.0-2.0) Sodium Level 137 MMOL/L (136-145) Potassium Level 5.3 MMOL/L (3.5-5.1) H Chloride Level 99 MMOL/L (98-107) Carbon Dioxide Level 21 MMOL/L (21-32) Anion Gap 17 mmol/L (5-15) H Blood Urea Nitrogen 58 mg/dL (7-18) H Creatinine 3.8 MG/DL (0.55-1.30) H Estimat Glomerular Filtration Rate 15.5 mL/min (>60) Glucose Level 155 MG/DL (74-106) H Hemoglobin A1c 6.3 % (4.3-6.0) H Calcium Level 7.8 MG/DL (8.5-10.1) L Magnesium Level 2.8 MG/DL (1.8-2.4) H C-Reactive Protein, Quantitative 13.6 mg/dL (0.00-0.90) H Current Medications Medications (Trade) Dose Ordered Sig/[place] Route PRN Reason Start Time Stop Time Status Last Admin Dose Admin Acetaminophen (Tylenol) 650 mg Q4H PRN ORAL Mild Pain (Pain Scale 1-3) 08/25/20 18:15 09/24/20 18:14 Atorvastatin Calcium (Lipitor) 20 mg BEDTIME ORAL 08/26/20 21:00 2/15/21 20:59 08/29/20 20:47 Chlorhexidine Gluconate (Antonette-Hex 2%) 1 applic DAILY@2000 TOPIC 08/28/20 20:00 11/26/20 19:59 08/29/20 20:46 Dextrose (Dextrose 50%) 25 ml Q30M PRN IV Hypoglycemia 08/25/20 18:15 11/23/20 18:14 Dextrose (Dextrose 50%) 50 ml Q30M PRN IV Hypoglycemia 08/25/20 18:15 11/23/20 18:14 Famotidine (Pepcid) 40 mg DAILY ORAL 08/26/20 09:00 11/24/20 08:59 08/30/20 10:00 Ferrous Gluconate (Fergon) 324 mg EVERY OTHER DAY ORAL 08/30/20 12:00 11/28/20 11:59 08/30/20 11:18 Heparin Sodium (Porcine) (Heparin 5000 units/ml) 5,000 units EVERY 12 HOURS SUBQ 08/26/20 09:00 10/10/20 08:59 08/30/20 10:02 Insulin Aspart (NovoLOG) BEFORE MEALS AND HS SUBQ 08/25/20 21:00 11/23/20 20:59 08/30/20 12:48 Metronidazole 100 ml @ 100 mls/hr Q8HR IVPB 08/30/20 22:00 09/06/20 21:59 UNV Patient Own Medication (Patient's Own Med) 1 ea DAILY ORAL 08/27/20 09:00 09/26/20 08:59 08/30/20 10:00 Patient Own Medication (Patient's Own Med) 1 ea DAILY ORAL 08/27/20 09:00 09/26/20 08:59 08/30/20 10:00 Sodium Chloride 1,000 ml @ 50 mls/hr Q20H IV 08/30/20 10:45 08/30/20 15:44 08/30/20 11:18 Vancomycin HCl ([facility] pharmacy to dose) 1 ea DAILY PRN MISC Per rx protocol 08/30/20 07:30 09/29/20 07:29 Herve Holden MD Aug 30, 2020 14:13
[2020-08-30 16:00] VITALS: BP 82/45
--- NOTE | 2020-08-30 18:10 | NUR ---
NURSE HAND-OFF REPORT: Important Events on Shift:[Pt not producing urine. 2 bladder scans done each with 110ml or less. Pt hypotensive but per Dr. Smalls Doserafin D/Paulino.] Patient Status: [In bed resting] Diet: [cardiac] Pending Orders: [] Pending Results/Labs:[] Pending MD notification:[] Latest Vital Signs: Temperature 97.7 , Pulse 84 , B/P 82 /45 , Respiratory Rate 20 , O2 SAT 98 , Room Air, O2 Flow Rate . Vital Sign Comment: [] EKG Rhythm: Sinus Rhythm Rhythm change?: N MD Notified?: N -Dr Lindsay COLON Response: No New Orders Received Latest Davis Fall Score: 45 Fall Risk: High Risk Safety Measures: Call light Within Reach, Bed Alarm Zone 1, Side Rails Side Rails x2, Bed position Low and Locked. Fall Precautions: Yellow Socks Yellow Gown Patient Fall Education Report given to [Pending Rn assignment]. Addendum: 08/30/20 at 1938 by Verena Victoria RN Report Given to Maura Burrows
--- NOTE | 2020-08-30 18:20 | Nephrology Progress Note ---
Assessment/Plan Plan #AHSAN due to CRS1- now worsening in the setting of active diuresis #acute on chronic decompensated CHF #h/o HFref #HTN #DM #HIV #Anemia - HOLD lasix - s/p kayexalate - off dobutamine - monitor K - echo noted - monitor UOP - monitor weights - monitor renal parameters - replete lytes -avoid nephrotoxins time spent 65min Subjective ROS Limited/Unobtainable: No Constitutional: Reports: weakness HEENT: Denies: no symptoms, eye pain, blurred vision, tearing, double vision, ear pain, ear discharge, nose pain, nose congestion, throat pain, throat swelling, mouth pain, mouth swelling, other Genitourinary: Denies: no symptoms, burning, discharge, frequency, flank pain, hematuria, incontinence, pain, urgency, other Neurologic/Psychiatric: Denies: no symptoms, anxiety, depressed, emotional problems, headache, numbness, paresthesia, pre-existing deficit, seizure, tingling, tremors, weakness, other Subjective Cr up to 3.8 today k elevated was given kayexalate lasix held off dobutamine drip less dyspnea Objective Objective Last 24 Hour Vital Signs Date Time Temp Pulse Resp B/P (MAP) Pulse Ox O2 Delivery O2 Flow Rate FiO2 08/30/20 16:00 97.7 84 20 82/45 (57) 98 08/30/20 15:52 87 08/30/20 12:00 97.7 89 20 89/56 (67) 96 08/30/20 12:00 80 08/30/20 09:00 Room Air 08/30/20 08:00 76 08/30/20 08:00 97.7 84 20 84/57 (66) 100 08/30/20 04:00 82 08/30/20 04:00 97.5 80 23 97/65 (76) 96 08/30/20 00:00 98 08/30/20 00:00 97.1 108 20 90/71 (77) 94 08/29/20 21:00 Room Air 08/29/20 20:00 97.1 110 30 94/66 (75) 92 08/29/20 20:00 110 Intake and Output 08/29/20 08/30/20 19:00 07:00 Intake Total 960 ml 240 ml Output Total 900 ml Balance 60 ml 240 ml Intake Oral 960 ml 240 ml Output Urine Total 900 ml # Voids 3 3 # Bowel Movements 1 Laboratory Tests 08/29/20 21:05: POC Whole Blood Glucose [Pending] 08/30/20 06:00: White Blood Count 18.2#H, Red Blood Count 3.57L, Hemoglobin 10.0L, Hematocrit 32.2L, Mean Corpuscular Volume 90, Mean Corpuscular Hemoglobin 27.8, Mean Corpuscular Hemoglobin Concent 30.9L, Red Cell Distribution Width 23.0H, Platelet Count 223, Mean Platelet Volume 7.2, Neutrophils (%) (Auto) , Lymp hocytes (%) (Auto) , Monocytes (%) (Auto) , Eosinophils (%) (Auto) , Basophils (%) (Auto) , Differential Total Cells Counted 100, Neutrophils % (Manual) 84H, Lymphocytes % (Manual) 7L, Monocytes % (Manual) 9, Eosinophils % (Manual) 0, Basophils % (Manual) 0, Band Neutrophils 0, Platelet Estimate Adequate, Platelet Morphology Normal, Polychromasia 1+, Hypochromasia 1+, Anisocytosis 3+, Ovalocytes Occasional, Sodium Level 135L, Potassium Level 5.6#H, Chloride Level 99, Carbon Dioxide Level 19L, Anion Gap 17H, Blood Urea Nitrogen 55H, Creatinine 3.7#H, Estimat Glomerular Filtration Rate 16.0, Glucose Level 183H, Calcium Level 7.8L, Magnesium Level 2.6H 08/30/20 06:14: POC Whole Blood Glucose [Pending] 08/30/20 08:40: White Blood Count 16.8H, Red Blood Count 3.65L, Hemoglobin 10.2L, Hematocrit 32.8L, Mean Corpuscular Volume 90, Mean Corpuscular Hemoglobin 28.0, Mean Corpuscular Hemoglobin Concent 31.1L, Red Cell Distribution Width 22.1H, Platelet Count 236, Mean Platelet Volume 8.2, Neutrophils (%) (Auto) 83.3H, Lymphocytes (%) (Auto) 8.8L, Monocytes (%) (Auto) 7.4, Eosinophils (%) (Auto) 0.1, Basophils (%) (Auto) 0.4, Sodium Level 137, Potassium Level 5.3H, Chloride Level 99, Carbon Dioxide Level 21, Anion Gap 17H, Blood Urea Nitrogen 58H, Creatinine 3.8H, Estimat Glomerular Filtration Rate 15.5, Glucose Level 155H, Calcium Level 7.8L, Magnesium Level 2.8H, Hemoglobin A1c 6.3H, C-Reactive Protein, Quantitative 13.6H Height (Feet): 5 Height (Inches): 5.00 Weight (Pounds): 152 Brady Gupta M.D. Aug 30, 2020 18:20
--- NOTE | 2020-08-30 19:15 | NUR ---
NURSE NOTES: Received pt AAOX4, maltese speaking but able to understand Gambian; noted laying down and comfortable in bed; Seen by Dr. Montoya beginning of the shift; On O2 tehrapy 3L/min via NC; in no acute distress; On 1500 ml FLUID RESTRICTION; call light within reach; bed locked and in low position; side rails x 3; will continue to monitor.
[2020-08-30 19:48] LABS: CREATININE 4.8 MG/DL (0.55-1.30); POTASSIUM 5.4 MMOL/L (3.5-5.1)
[2020-08-30 20:00] VITALS: BP 85/59
--- NOTE | 2020-08-30 20:51 | Cardiac Electrophysiology PN ---
Assessment/Plan Assessment/Plan 1. Exacerbation of congestive heart failure with ejection fraction of 30% in 05/2020 at [facility]. Repeat echocardiogram showed EF still 20% Increase dobutamine as renal failure is getting worse again and DC Lasix Hold off on Coreg, lisinopril, and Aldactone in view of hypotension as well as acute renal failure. S/P PICC line DW Dr Park, his deportation officer. 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 Will need prophylactic ICD 2. Troponin elevation, could be due to patient's renal failure with creatinine of 3.5. 3. Acute renal failure. Again, the creatinine was 1.2 on 06/06/2020 and on admission was 3.0, likely due to cardiorenal syndrome.Avoid ACEI and ARB Cr improved to 1.8 yesterday but up to 4.7 today. Increase Dobutamine to 3 mcg D C iv Lasix. 4. Hypotension. On dobutamine 5. Incomplete left bundle-branch block. 6. HIV. Patient is on anti-retroviral therapy including Prezcobix and Tivicay. DW RN DW Dr Park, his deportation officer. Subjective Subjective CHF exacerbation EF 30% in 05/2020 and now 20%. Also in ARF with CR 1.2 increased to 3.0 since May 2020 Feeling better on Dobutamine drip at 1 and Lasix 40 iv daily Objective Last 24 Hour Vital Signs Date Time Temp Pulse Resp B/P (MAP) Pulse Ox O2 Delivery O2 Flow Rate FiO2 08/30/20 16:00 97.7 84 20 82/45 (57) 98 08/30/20 15:52 87 08/30/20 12:00 97.7 89 20 89/56 (67) 96 08/30/20 12:00 80 08/30/20 09:00 Room Air 08/30/20 08:00 76 08/30/20 08:00 97.7 84 20 84/57 (66) 100 08/30/20 04:00 82 08/30/20 04:00 97.5 80 23 97/65 (76) 96 08/30/20 00:00 98 08/30/20 00:00 97.1 108 20 90/71 (77) 94 08/29/20 21:00 Room Air Intake and Output 08/29/20 08/30/20 19:00 07:00 Intake Total 960 ml 240 ml Output Total 900 ml Balance 60 ml 240 ml Intake Oral 960 ml 240 ml Output Urine Total 900 ml # Voids 3 3 # Bowel Movements 1 Laboratory Tests Test 08/29/20 21:05 08/30/20 06:00 08/30/20 06:14 08/30/20 08:40 POC Whole Blood Glucose Pending Pending White Blood Count 18.2 K/UL (4.8-10.8) #H 16.8 K/UL (4.8-10.8) H Red Blood Count 3.57 M/UL (4.70-6.10) L 3.65 M/UL (4.70-6.10) L Hemoglobin 10.0 G/DL (14.2-18.0) L 10.2 G/DL (14.2-18.0) L Hematocrit 32.2 % (42.0-52.0) L 32.8 % (42.0-52.0) L Mean Corpuscular Volume 90 FL (80-99) 90 FL (80-99) Mean Corpuscular Hemoglobin 27.8 PG (27.0-31.0) 28.0 PG (27.0-31.0) Mean Corpuscular Hemoglobin Concent 30.9 G/DL (32.0-36.0) L 31.1 G/DL (32.0-36.0) L Red Cell Distribution Width 23.0 % (11.6-14.8) H 22.1 % (11.6-14.8) H Platelet Count 223 K/UL (150-450) 236 K/UL (150-450) Mean Platelet Volume 7.2 FL (6.5-10.1) 8.2 FL (6.5-10.1) Neutrophils (%) (Auto) % (45.0-75.0) 83.3 % (45.0-75.0) H Lymphocytes (%) (Auto) % (20.0-45.0) 8.8 % (20.0-45.0) L Monocytes (%) (Auto) % (1.0-10.0) 7.4 % (1.0-10.0) Eosinophils (%) (Auto) % (0.0-3.0) 0.1 % (0.0-3.0) Basophils (%) (Auto) % (0.0-2.0) 0.4 % (0.0-2.0) Differential Total Cells Counted 100 Neutrophils % (Manual) 84 % (45-75) H Lymphocytes % (Manual) 7 % (20-45) L Monocytes % (Manual) 9 % (1-10) Eosinophils % (Manual) 0 % (0-3) Basophils % (Manual) 0 % (0-2) Band Neutrophils 0 % (0-8) Platelet Estimate Adequate Platelet Morphology Normal Polychromasia 1+ Hypochromasia 1+ Anisocytosis 3+ Ovalocytes Occasional Sodium Level 135 MMOL/L (136-145) L 137 MMOL/L (136-145) Potassium Level 5.6 MMOL/L (3.5-5.1) #H 5.3 MMOL/L (3.5-5.1) H Chloride Level 99 MMOL/L (98-107) 99 MMOL/L (98-107) Carbon Dioxide Level 19 MMOL/L (21-32) L 21 MMOL/L (21-32) Anion Gap 17 mmol/L (5-15) H 17 mmol/L (5-15) H Blood Urea Nitrogen 55 mg/dL (7-18) H 58 mg/dL (7-18) H Creatinine 3.7 MG/DL (0.55-1.30) #H 3.8 MG/DL (0.55-1.30) H Estimat Glomerular Filtration Rate 16.0 mL/min (>60) 15.5 mL/min (>60) Glucose Level 183 MG/DL (74-106) H 155 MG/DL (74-106) H Calcium Level 7.8 MG/DL (8.5-10.1) L 7.8 MG/DL (8.5-10.1) L Magnesium Level 2.6 MG/DL (1.8-2.4) H 2.8 MG/DL (1.8-2.4) H Hemoglobin A1c 6.3 % (4.3-6.0) H C-Reactive Protein, Quantitative 13.6 mg/dL (0.00-0.90) H Test 08/30/20 19:12 Sodium Level 132 MMOL/L (136-145) L Potassium Level 5.4 MMOL/L (3.5-5.1) H Chloride Level 95 MMOL/L (98-107) L Carbon Dioxide Level 16 MMOL/L (21-32) L Anion Gap 21 mmol/L (5-15) H Blood Urea Nitrogen 73 mg/dL (7-18) H Creatinine 4.8 MG/DL (0.55-1.30) H Estimat Glomerular Filtration Rate 11.8 mL/min (>60) Glucose Level 184 MG/DL (74-106) H Calcium Level 8.0 MG/DL (8.5-10.1) L Microbiology Date/Time Source Procedure Growth Status 08/28/20 08:00 Blood Blood Culture - Preliminary NO GROWTH AFTER 24 HOURS Resulted 08/28/20 08:00 Blood Blood Culture - Preliminary NO GROWTH AFTER 24 HOURS Resulted Objective HEAD AND NECK: Mild JVD. LUNGS: Coarse rhonchi. CARDIOVASCULAR: regular S1 and S2 with no gallop. ABDOMEN: Soft. EXTREMITIES: 2+ bilateral pitting edema. Grabiel Montoya MD Aug 30, 2020 20:51
[2020-08-30] MEDS ORDERED: DOBUTamine Inj 500 MG in D5W 210 ML IV SCH (21:00)
[2020-08-30] MEDS: Atorvastatin 20mg tab ORAL SCH (21:33)
[2020-08-30] MEDS: DOBUTamine 250mg/250ml Premix IV SCH (21:33)
[2020-08-30] MEDS: Dyna-Hex 2% Top Sol 2oz TOPIC SCH (21:35)
[2020-08-31] VITALS: BP 95/63
--- NOTE | 2020-08-31 01:00 | NUR ---
NURSE NOTES: Bladder scan done with result 122 ml; no bladder distention noted; denies any pain nor discomfort upon palpation; urinal noted with 50 ml dark mayo urine; no hematuria nor blood clots noted. Pt reminded to call when need to urinate for urine specimen collection. Will continue to monitor.
[2020-08-31 04:00] VITALS: BP 106/73
--- NOTE | 2020-08-31 06:00 | NUR ---
NURSE NOTES: Left message to DR. Montoya regarding pt with episodes of PACs, asymptomatic. Awaiting call back. HR 99 bpm, BP 106/73. Will continue to monitor.
[2020-08-31] MEDS: NovoLOG Insulin Flexpen SUBQ SCH ×4 (06:31→21:04)
--- NOTE | 2020-08-31 07:40 | NUR ---
NURSE HAND-OFF REPORT: Important Events on Shift: On dobutamine drip 250mg/250 ml 3mcg/kg/min @ 12.41 ml/hr started @ 1030, currently infusing on L upper arm PICC line; wt @ 0600 61.9 kg, With episodes of SR with PACs; Dr. Montoya made aware @ 0600; no call back during shift; Patient Status: stable Diet: cardiac thin liquids Pending Orders: CXR 09/01/20 Pending Results/Labs:morning labs, sputum/blood cx Pending MD notification:Dr. Montoya Latest Vital Signs: Temperature 97.5 , Pulse 98 , B/P 106 /73 , Respiratory Rate 20 , O2 SAT 98 , Room Air, O2 Flow Rate . Vital Sign Comment: BP increasing d/t dobutamine, desirable EKG Rhythm: Sinus Rhythm Rhythm change?: N MD Notified?: Y -Dr. Lindsay COLON Response: Message left await call Latest Davis Fall Score: 45 Fall Risk: High Risk Safety Measures: Call light Within Reach, Bed Alarm Zone 1, Side Rails Side Rails x2, Bed position Low and Locked. Fall Precautions: Yellow Socks Yellow Gown Patient Fall Education Report given to IVY Schuler[].
[2020-08-31 07:41] LABS: HEMATOCRIT 31.9 % (42.0-52.0); HEMOGLOBIN 9.9 G/DL (14.2-18.0); MEAN CORPUSCULAR VOLUME 89 FL (80-99); PLATELET COUNT 187 K/UL (150-450); RED BLOOD COUNT 3.59 M/UL (4.70-6.10); RED CELL DISTRIBUTION WIDTH 21.8 % (11.6-14.8); WHITE BLOOD COUNT 17.4 K/UL (4.8-10.8)
--- NOTE | 2020-08-31 07:45 | NUR ---
NURSE NOTES: Receive report from Gwendolyn/RN. Pt is awake sitting at the edge of the bed having breakfast. On 2L nasal cannula, no distress or SOB noted at this moment. PICC line in left upper arm, dobutamine drip at 12.41 ml/hr. IV on right FA, SL, patent and clean. Bed in the lowest position and locked, call light within reach, encouraged to use it when needed. Side rails up X3. Will continue plan of care.
[2020-08-31 08:00] VITALS: BP 97/64
[2020-08-31 08:23] LABS: ALBUMIN 3.4 G/DL (3.4-5.0); ALBUMIN/GLOBULIN RATIO 0.9 (1.0-2.7); BILIRUBIN,TOTAL 2.8 MG/DL (0.2-1.0); CALCIUM 6.9 MG/DL (8.5-10.1); CREATININE 5.3 MG/DL (0.55-1.30); POTASSIUM 4.2 MMOL/L (3.5-5.1)
[2020-08-31] MEDS: Heparin 5000 units/ml inj SUBQ SCH ×2 (08:28→20:50)
[2020-08-31] MEDS: Patient's Own Med - Tivicay 50mg ORAL SCH (08:34)
[2020-08-31] MEDS: Patient's Own Med - Prezcobix 800/150mg ORAL SCH (08:34)
[2020-08-31] MEDS ORDERED: Cefepime 2gm in D5W 55ml IVPB SCH (09:00)
[2020-08-31 09:01] LABS: BILIRUBIN,DIRECT 1.9 MG/DL (0.0-0.3)
--- NOTE | 2020-08-31 09:03 | General Progress Note ---
Subjective Constitutional: Denies: no symptoms, chills, diaphoresis, fever, malaise, weakness, other HEENT: Denies: no symptoms, eye pain, blurred vision, tearing, double vision, ear pain, ear discharge, nose pain, nose congestion, throat pain, throat swelling, mouth pain, mouth swelling, other Cardiovascular: Denies: no symptoms, chest pain, edema, irregular heart rate, lightheadedness, palpitations, syncope, other Respiratory: Denies: no symptoms, cough, orthopnea, shortness of breath, SOB with excertion, SOB at rest, sputum, stridor, wheezing, other Gastrointestinal/Abdominal: Denies: no symptoms, abdomen distended, abdominal pain, black stools, tarry stools, blood in stool, constipated, diarrhea, difficulty swallowing, nausea, poor appetite, poor fluid intake, rectal bleeding, vomiting, other Genitourinary: Denies: no symptoms, burning, discharge, frequency, flank pain, hematuria, incontinence, pain, urgency, other Neurologic/Psychiatric: Denies: no symptoms, anxiety, depressed, emotional problems, headache, numbness, paresthesia, pre-existing deficit, seizure, tingling, tremors, weakness, other Endocrine: Denies: no symptoms, excessive sweating, flushing, intolerance to cold, intolerance to heat, increased hunger, increased thirst, increased urine, unexplained weight gain, unexplained weight loss, other Hematologic/Lymphatic: Denies: no symptoms, anemia, easy bleeding, easy bruising, other Allergies: Coded Allergies: No Known Allergies (Unverified , 06/03/20) Subjective No acute events overnight. Patient resting comfortably in bed. Still has minimal urine output. Bladder scan negative for retention. Diuresis has been held. Labs obtained today. Objective Last 24 Hour Vital Signs Date Time Temp Pulse Resp B/P (MAP) Pulse Ox O2 Delivery O2 Flow Rate FiO2 08/31/20 08:00 97.9 91 20 97/64 (75) 96 08/31/20 04:00 97.5 98 20 106/73 (84) 98 08/31/20 04:00 98 08/31/20 00:00 97.9 74 24 95/63 (74) 08/31/20 00:00 89 08/30/20 21:33 85/59 08/30/20 21:00 Room Air 08/30/20 20:00 89 08/30/20 20:00 97.6 88 18 85/59 (68) 100 08/30/20 16:00 97.7 84 20 82/45 (57) 98 08/30/20 15:52 87 08/30/20 12:00 97.7 89 20 89/56 (67) 96 08/30/20 12:00 80 08/30/20 09:00 Room Air Intake and Output 08/30/20 08/31/20 19:00 07:00 Intake Total 236 ml Balance 236 ml Intake Oral 236 ml # Voids 4 Laboratory Tests 08/30/20 19:12: Sodium Level 132L, Potassium Level 5.4H, Chloride Level 95L, Carbon Dioxide Level 16L, Anion Gap 21H, Blood Urea Nitrogen 73H, Creatinine 4.8H, Estimat Glomerular Filtration Rate 11.8, Glucose Level 184H, Calcium Level 8.0L 08/30/20 21:31: POC Whole Blood Glucose 178H 08/31/20 06:20: Sodium Level [Pending], Potassium Level [Pending], Chloride Level [Pending], Carbon Dioxide Level [Pending], Blood Urea Nitrogen [Pending], Creatinine [Pending], Estimat Glomerular Filtration Rate [Pending], Glucose Level [Pending], Calcium Level [Pending], White Blood Count 17.4H, Red Blood Count 3.59L, Hemoglobin 9.9L, Hematocrit 31.9L, Mean Corpuscular Volume 89, Mean Corpuscular Hemoglobin 27.7, Mean Corpuscular Hemoglobin Concent 31.1L, Red Cell Distribution Width 21.8H, Platelet Count 187, Mean Platelet Volume 8.1, Neutrophils (%) (Auto) , Lymphocytes (%) (Auto) , Monocytes (%) (Auto) , Eosinophils (%) (Auto) , Basophils (%) (Auto) , Differential Total Cells Counted 100, Neutrophils % (Manual) 88H, Lymphocytes % (Manual) 3L, Monocytes % (Manual) 9, Eosinophils % (Manual) 0, Basophils % (Manual) 0, Band Neutrophils 0, Platelet Estimate Adequate, Platelet Morphology Normal, Polychromasia 1+, Hypochromasia 1+, Anisocytosis 3+, Ovalocytes Occasional, Magnesium Level 2.9H, Total Bilirubin [Pending], Aspartate Amino Transf (AST/SGOT) [Pending], Alanine Aminotransferase (ALT/SGPT) [Pending], Alkaline Phosphatase [Pending], Total Protein [Pending], Albumin [Pending], Globulin [Pending], Random Vancomycin Level 17.4 08/31/20 06:28: POC Whole Blood Glucose 157H Height (Feet): 5 Height (Inches): 5.00 Weight (Pounds): 152 General Appearance: no apparent distress, alert, alert oriented x3 EENT: PERRL/EOMI Neck: non-tender, normal alignment Cardiovascular: normal rate, regular rhythm, no JVD Respiratory/Chest: lungs clear, normal breath sounds, respiratory distress Abdomen: non tender, soft, no organomegaly Extremities: normal range of motion Edema: 2+ Leg (L), 2+ Leg (R) Neurologic: cargo checker II-XII grossly normal, alert, oriented x 3 Skin: normal pigmentation, warm/dry Assessment/Plan Assessment/Plan: Andrae Davis is a 80-year-old male with PMH of HFrEF, HTN, HIV, IDDM, HLD who presents with SOB. # Acute on chronic decompensated HFrEFstable # NSTEMI type I versus type II #Hospital-acquired pneumonia #UTI # AHSAN versus AHSAN on CKD 2/2 cardiorenal syndrome versus ATNworsening # Pulmonary hypertension likely class II # History of HIV on HHART # Hyperlipidemia # Normocytic anemia 2/2 LJ # Troponin elevation # HTN # Incomplete LBBB P: -Continue dopamine supplementation for hemodynamics per cardiology DC Lasix, no nephrotoxin drugs Follow-up renal labs this morning, still pending Bladder scan negative for urinary retention, straight cath if postvoid residual greater than 200 Echo showing diffuse global hypokinesia, EF 20- 25 %, RSVP 75 Hold beta-blockers and TONY/ARB/Arni until patient more euvolemic and AHSAN resolved We will continue vancomycin and cefepime along with added Flagyl by ID Leukocytosis stable - f/u BC, UCnegative so far Keep potassium > 4, magnesium > 2 Strict I's and O's Fluid restriction to 1500 mL/day Daily weights Continue HHART meds Continue iron supplementation - Cardiology consult Dr. Montoya, recs appreciated Nephrology consult Dr. Gupta, recs appreciated ID consult Dr. Mcnulty, recs appreciated Physical therapy CODE: Full Diet: cardiac DVT ppx: heparin subQ GI: Famotidine Dispo: Pending improvement of CHF exacerbation, renal failure, pneumonia Time spent on this encounter was 41 minutes which included 24 minutes of counseling and care coordination. I discussed with the nurse at bedside and nephrology, patient safety tech. Time of note may not reflect time patient was seen. Luis Nelson D.O Aug 31, 2020 09:03
--- NOTE | 2020-08-31 09:59 | Consultation ---
History of Present Illness General Chief Complaint: Dyspnea/Respdistress Reason for Consultation: Ahsan, cardiorenal syndrome Present Illness Allergies: Coded Allergies: No Known Allergies (Unverified , 06/03/20) Medication History Scheduled Atorvastatin Calcium* (Atorvastatin Calcium*), 20 MG ORAL BEDTIME, (Reported) Cyanocobalamin (Vitamin B-12) (Cyanocobalamin Injection), 1,000 MCG IJ EVERY MONTH, (Reported) Darunavir/Cobicistat (Prezcobix 800 mg-150 mg Tablet), 1 EACH PO DAILY, (Reported) Darunavir/Cobicistat (Prezcobix 800 mg-150 mg Tablet), 1 EACH PO DAILY, (Reported) Dolutegravir Sodium (Tivicay), 50 MG ORAL DAILY, (Reported) Furosemide* (Lasix*), 20 MG ORAL DAILY Loratadine (Claritin*), 10 MG PO DAILY, (Reported) Losartan Potassium* (Losartan Potassium*), 50 MG ORAL TWICE A DAY, (Reported) Metoprolol Tartrate (Metoprolol Tartrate), 25 MG ORAL Q12HR Naphazoline Hcl/Phenir Mal (Naphcon-A Eye Drops), 1-2 DROP OP 2-4 TIMES DAILY, (Reported) Omeprazole (Omeprazole), 20 MG ORAL DAILY, (Reported) Psyllium Husk (Metamucil), PO DAILY, (Reported) Sitagliptin Phos/Metformin Hcl (Janumet 50-1,000 Mg Tablet), 1 TAB ORAL TWICE A DAY, (Reported) Spironolactone (Aldactone), 25 MG ORAL DAILY Tamsulosin HCl (Flomax), 0.4 MG ORAL DAILY, (Reported) Testosterone Cypionate (Testosterone Cypionate), 200 MG IM EVERY TWO WEEKS, (Reported) Vitamin B Complex (B Complex), 1 TAB ORAL DAILY, (Reported) Scheduled PRN Melatonin (Melatonin 5 Mg Tablet), 1 TAB ORAL BEDTIME PRN for Insomnia, (R eported) Propylene Glycol/Peg 400 (Lubricating Eye Drop), 1-2 DROP OP THREE TIMES A DAY PRN for Dry Eyes, (Reported) Patient History Healthcare decision maker N Resuscitation status Advanced Directive on File Physical Exam Last 24 Hour Vital Signs Date Time Temp Pulse Resp B/P (MAP) Pulse Ox O2 Delivery O2 Flow Rate FiO2 08/31/20 08:00 97.9 91 20 97/64 (75) 96 08/31/20 04:00 97.5 98 20 106/73 (84) 98 08/31/20 04:00 98 08/31/20 00:00 97.9 74 24 95/63 (74) 08/31/20 00:00 89 08/30/20 21:33 85/59 08/30/20 21:00 Room Air 08/30/20 20:00 89 08/30/20 20:00 97.6 88 18 85/59 (68) 100 08/30/20 16:00 97.7 84 20 82/45 (57) 98 08/30/20 15:52 87 08/30/20 12:00 97.7 89 20 89/56 (67) 96 08/30/20 12:00 80 Intake and Output 08/30/20 08/31/20 19:00 07:00 Intake Total 236 ml Balance 236 ml Intake Oral 236 ml # Voids 4 Laboratory Tests Test 08/30/20 19:12 08/30/20 21:31 08/31/20 06:20 08/31/20 06:28 Sodium Level 132 MMOL/L (136-145) L 134 MMOL/L (136-145) L Potassium Level 5.4 MMOL/L (3.5-5.1) H 4.2 MMOL/L (3.5-5.1) Chloride Level 95 MMOL/L (98-107) L 95 MMOL/L (98-107) L Carbon Dioxide Level 16 MMOL/L (21-32) L 19 MMOL/L (21-32) L Anion Gap 21 mmol/L (5-15) H 20 mmol/L (5-15) H Blood Urea Nitrogen 73 mg/dL (7-18) H 85 mg/dL (7-18) H Creatinine 4.8 MG/DL (0.55-1.30) H 5.3 MG/DL (0.55-1.30) H Estimat Glomerular Filtration Rate 11.8 mL/min (>60) 10.5 mL/min (>60) Glucose Level 184 MG/DL (74-106) H 145 MG/DL (74-106) H Calcium Level 8.0 MG/DL (8.5-10.1) L 6.9 MG/DL (8.5-10.1) L POC Whole Blood Glucose 178 MG/DL (74-106) H 157 MG/DL (74-106) H White Blood Count 17.4 K/UL (4.8-10.8) H Red Blood Count 3.59 M/UL (4.70-6.10) L Hemoglobin 9.9 G/DL (14.2-18.0) L Hematocrit 31.9 % (42.0-52.0) L Mean Corpuscular Volume 89 FL (80-99) Mean Corpuscular Hemoglobin 27.7 PG (27.0-31.0) Mean Corpuscular Hemoglobin Concent 31.1 G/DL (32.0-36.0) L Red Cell Distribution Width 21.8 % (11.6-14.8) H Platelet Count 187 K/UL (150-450) Mean Platelet Volume 8.1 FL (6.5-10.1) Neutrophils (%) (Auto) % (45.0-75.0) Lymphocytes (%) (Auto) % (20.0-45.0) Monocytes (%) (Auto) % (1.0-10.0) Eosinophils (%) (Auto) % (0.0-3.0) Basophils (%) (Auto) % (0.0-2.0) Differential Total Cells Counted 100 Neutrophils % (Manual) 88 % (45-75) H Lymphocytes % (Manual) 3 % (20-45) L Monocytes % (Manual) 9 % (1-10) Eosinophils % (Manual) 0 % (0-3) Basophils % (Manual) 0 % (0-2) Band Neutrophils 0 % (0-8) Platelet Estimate Adequate Platelet Morphology Normal Polychromasia 1+ Hypochromasia 1+ Anisocytosis 3+ Ovalocytes Occasional Magnesium Level 2.9 MG/DL (1.8-2.4) H Total Bilirubin 2.8 MG/DL (0.2-1.0) H Direct Bilirubin 1.9 MG/DL (0.0-0.3) H Aspartate Amino Transf (AST/SGOT) 96924 U/L (15-37) H Alanine Aminotransferase (ALT/SGPT) 8234 U/L (12-78) H Alkaline Phosphatase 153 U/L (46-116) H Total Protein 7.0 G/DL (6.4-8.2) Albumin 3.4 G/DL (3.4-5.0) Globulin 3.6 g/dL Albumin/Globulin Ratio 0.9 (1.0-2.7) L Random Vancomycin Level 17.4 ug/mL Microbiology Date/Time Source Procedure Growth Status 08/30/20 15:33 Sputum Induced Gram Stain - Final Resulted 08/30/20 15:33 Sputum Induced Sputum Culture Pending Resulted Height (Feet): 5 Height (Inches): 5.00 Weight (Pounds): 152 Medications Current Medications Medications (Trade) Dose Ordered Sig/[place] Route PRN Reason Start Time Stop Time Status Last Admin Dose Admin Acetaminophen (Tylenol) 650 mg Q4H PRN ORAL Mild Pain (Pain Scale 1-3) 08/25/20 18:15 09/24/20 18:14 Atorvastatin Calcium (Lipitor) 20 mg BEDTIME ORAL 08/26/20 21:00 11/24/20 20:59 08/30/20 21:33 Cefepime HCl 2 gm/ Dextrose 55 ml @ 110 mls/hr Q24H IVPB 08/31/20 09:00 09/07/20 08:59 08/31/20 08:27 Chlorhexidine Gluconate (Antonette-Hex 2%) 1 applic DAILY@2000 TOPIC 08/28/20 20:00 11/26/20 19:59 08/30/20 21:35 Dextrose (Dextrose 50%) 25 ml Q30M PRN IV Hypoglycemia 08/25/20 18:15 11/23/20 18:14 Dextrose (Dextrose 50%) 50 ml Q30M PRN IV Hypoglycemia 08/25/20 18:15 11/23/20 18:14 Dobutamine HCl 250 ml @ 12.41 mls/ hr Q24H IV 08/30/20 21:00 09/02/20 20:57 08/30/20 21:33 Famotidine (Pepcid) 40 mg DAILY ORAL 08/26/20 09:00 11/24/20 08:59 08/31/20 08:26 Ferrous Gluconate (Fergon) 324 mg EVERY OTHER DAY ORAL 08/30/20 12:00 11/28/20 11:59 08/30/20 11:18 Heparin Sodium (Porcine) (Heparin 5000 units/ml) 5,000 units EVERY 12 HOURS SUBQ 08/26/20 09:00 10/10/20 08:59 08/31/20 08:28 Insulin Aspart (NovoLOG) BEFORE MEALS AND HS SUBQ 08/25/20 21:00 11/23/20 20:59 08/31/20 06:31 Metronidazole 100 ml @ 100 mls/hr Q8HR IVPB 08/30/20 22:00 09/06/20 21:59 08/31/20 06:29 Patient Own Medication (Patient's Own Med) 1 ea DAILY ORAL 08/27/20 09:00 09/26/20 08:59 08/31/20 08:34 Patient Own Medication (Patient's Own Med) 1 ea DAILY ORAL 08/27/20 09:00 09/26/20 08:59 08/31/20 08:34 Sodium Chloride 1,000 ml @ 50 mls/hr Q20H IV 08/31/20 09:45 08/31/20 14:44 Vancomycin HCl ([facility] pharmacy to dose) 1 ea DAILY PRN MISC Per rx protocol 08/30/20 07:30 09/29/20 07:29 Vancomycin HCl 500 mg/Dextrose 110 ml @ 110 mls/hr ONCE ONCE IVPB 08/31/20 11:00 08/31/20 11:59 Assessment/Plan Assessment/Plan: Hematology Consultation REQ MD: Alejo Reveles RFC: Clint sandoval DOS: 09/30/2020 KODAK Davis is a 80-year-old male with PMH of HFrEF, HTN, HIV, IDDM, HLD who presents with SOB. He reports low salt and sugar intake. He reports dyspnea on exertion of only 1 block for past 1 month, no significant orthopnea, worsening BLE edema. He denies fever, chills, chest pain, N/V/D, sick contacts, COVID-19 contacts or symptoms. Heme consulted for anemia eval. PAST MEDICAL HISTORY: Hypertension, HIV, AIDS, dyslipidemia, insulin-dependent diabetes mellitus. PSH: reports cyst surgery many years ago Family history: mother from diabetes complications SOCIAL HISTORY: Former smoker, quit 2-3 months ago, denies alcohol or substance use Allergies: Coded Allergies: No Known Allergies (Unverified , 06/03/20) Medication History Scheduled Atorvastatin Calcium* (Atorvastatin Calcium*), 20 MG ORAL BEDTIME, (Reported) Cyanocobalamin (Vitamin B-12) (Cyanocobalamin Injection), 1,000 MCG IJ EVERY MONTH, (Reported) Darunavir/Cobicistat (Prezcobix 800 mg-150 mg Tablet), 1 EACH PO DAILY, (Reported) Darunavir/Cobicistat (Prezcobix 800 mg-150 mg Tablet), 1 EACH PO DAILY, (Reported) Dolutegravir Sodium (Tivicay), 50 MG ORAL DAILY, (Reported) Furosemide* (Lasix*), 20 MG ORAL DAILY Loratadine (Claritin*), 10 MG PO DAILY, (Reported) Losartan Potassium* (Losartan Potassium*), 50 MG ORAL TWICE A DAY, (Reported) Metoprolol Tartrate (Metoprolol Tartrate), 25 MG ORAL Q12HR Naphazoline Hcl/Phenir Mal (Naphcon-A Eye Drops), 1-2 DROP OP 2-4 TIMES DAILY, (Reported) Omeprazole (Omeprazole), 20 MG ORAL DAILY, (Reported) Psyllium Husk (Metamucil), PO DAILY, (Reported) Sitagliptin Phos/Metformin Hcl (Janumet 50-1,000 Mg Tablet), 1 TAB ORAL TWICE A DAY, (Reported) Spironolactone (Aldactone), 25 MG ORAL DAILY Tamsulosin HCl (Flomax), 0.4 MG ORAL DAILY, (Reported) Testosterone Cypionate (Testosterone Cypionate), 200 MG IM EVERY TWO WEEKS, (Reported) Vitamin B Complex (B Complex), 1 TAB ORAL DAILY, (Reported) Scheduled PRN Melatonin (Melatonin 5 Mg Tablet), 1 TAB ORAL BEDTIME PRN for Insomnia, (Reported) Propylene Glycol/Peg 400 (Lubricating Eye Drop), 1-2 DROP OP THREE TIMES A DAY PRN for Dry Eyes, (Reported) Patient History Healthcare decision maker N Resuscitation status Advanced Directive on File Review of Systems All Other Systems: negative except mentioned in HPI Physical Exam General Appearance: no apparent distress Lines, tubes and drains: peripheral HEENT: normocephalic, atraumatic Neck: non-tender, normal alignment Respiratory/Chest: chest wall non-tender, lungs clear Cardiovascular/Chest: normal peripheral pulses, normal rate Abdomen: normal bowel sounds, non tender, soft Neurologic: alert, oriented x 3 LAbs; reviewed Imaging: noted Assessment and Recs # Anemia of iron deficiency, unspecified rule out gi bleed --> obtain a anemia panel, has been ordered--> reviewed --> po iron has been started --> hgb goal is >7, transfuse as needed --> trend CBC daily to make sure no major acute drop --> no evidence of hemolysis noted --> hgb 10->9.9 # Leukocytosis/elevated white blood cell count, unspecified likely related to i nfection/PNA --> have reviewed peripheral smear and bandemia/neutrophilia noted --> ABX vanc/cefepime --> monitor for resolution --> wbc 17 # AHSAN due to CRS1 --> as per renal # Acute on chronic decompensated CHF --> cards aware, diuresing # HTN # DM # HIV The timing of this note does not necessarily reflect the time of the patient was seen. Greatly appreciate consultation. Derrick Cisneros MD Aug 31, 2020 09:59
[2020-08-31] MEDS ORDERED: Vancomycin 500mg/D5W 110ml IVPB ONE ×2 (11:00)
[2020-08-31 12:00] VITALS: BP 92/46
--- NOTE | 2020-08-31 13:21 | NUR ---
CASE MANAGEMENT:REVIEW 08/31/20 SI: AC/CHR CHF. NSTEMI. HIV 97.9 91 20 97/64 96% ON RA WBC+17.4 BUN+85 CR+5.3 AST/ALT+[id number] IS: DOBUTAMINE GTT 3MCG IVF@50/HR IV CEFEPIME Q24 IV FLAGYL Q8HRS HEPARIN SQ Q12 HAART REGIMEN : TELEMETRY STATUS DCP: FROM HOME PLAN: NOT READY FOR DISCHARGE D/T WBC'S, CR AND BLOOD PRESSURE
--- NOTE | 2020-08-31 14:48 | Nephrology Progress Note ---
Assessment/Plan Plan #AHSAN due to CRS1- now worsening in the setting of active diuresis- progressing to ATN #shock liver #acute on chronic decompensated CHF #h/o HFref #HTN #DM #HIV #Anemia - HOLD lasix - on dobutamine drip - start bicarb drip at 50cc/hr - monitor UOP- oligoanuric now - monitor PVRs - monitor K - echo noted - monitor UOP - monitor weights - monitor renal parameters - replete lytes -avoid nephrotoxins time spent 65min Subjective ROS Limited/Unobtainable: No HEENT: Denies: no symptoms, eye pain, blurred vision, tearing, double vision, ear pain, ear discharge, nose pain, nose congestion, throat pain, throat swelling, mouth pain, mouth swelling, other Genitourinary: Denies: no symptoms, burning, discharge, frequency, flank pain, hematuria, incontinence, pain, urgency, other Subjective Cr worsnening LFTs upternding back on dobutamine drip oligonuric Objective Objective Last 24 Hour Vital Signs Date Time Temp Pulse Resp B/P (MAP) Pulse Ox O2 Delivery O2 Flow Rate FiO2 08/31/20 12:00 89 08/31/20 12:00 97.9 89 20 92/46 (61) 98 08/31/20 09:00 Room Air 08/31/20 08:00 97.9 91 20 97/64 (75) 96 08/31/20 08:00 93 08/31/20 04:00 97.5 98 20 106/73 (84) 98 08/31/20 04:00 98 08/31/20 00:00 97.9 74 24 95/63 (74) 08/31/20 00:00 89 08/30/20 21:33 85/59 08/30/20 21:00 Room Air 08/30/20 20:00 89 08/30/20 20:00 97.6 88 18 85/59 (68) 100 08/30/20 16:00 97.7 84 20 82/45 (57) 98 08/30/20 15:52 87 Intake and Output 08/30/20 08/31/20 19:00 07:00 Intake Total 236 ml Balance 236 ml Intake Oral 236 ml # Voids 4 Laboratory Tests 08/30/20 19:12: Sodium Level 132L, Potassium Level 5.4H, Chloride Level 95L, Carbon Dioxide Level 16L, Anion Gap 21H, Blood Urea Nitrogen 73H, Creatinine 4.8H, Estimat Glomerular Filtration Rate 11.8, Glucose Level 184H, Calcium Level 8.0L 08/30/20 21:31: POC Whole Blood Glucose 178H 08/31/20 06:20: Sodium Level 134L, Potassium Level 4.2, Chloride Level 95L, Carbon Dioxide Level 19L, Anion Gap 20H, Blood Urea Nitrogen 85H, Creatinine 5.3H, Estimat Glomerular Filtration Rate 10.5, Glucose Level 145H, Calcium Level 6.9L, White Blood Count 17.4H, Red Blood Count 3.59L, Hemoglobin 9.9L, Hematocrit 31.9L, Mean Corpuscular Volume 89, Mean Corpuscular Hemoglobin 27.7, Mean Corpuscular Hemoglobin Concent 31.1L, Red Cell Distribution Width 21.8H, Platelet Count 187, Mean Platelet Volume 8.1, Neutrophils (%) (Auto) , Lymphocytes (%) (Auto) , Monocytes (%) (Auto) , Eosinophils (%) (Auto) , Basophils (%) (Auto) , Differential Total Cells Counted 100, Neutrophils % (Manual) 88H, Lymphocytes % (Manual) 3L, Monocytes % (Manual) 9, Eosinophils % (Manual) 0, Basophils % (Manual) 0, Band Neutrophils 0, Platelet Estimate Adequate, Platelet Morphology Normal, Polychromasia 1+, Hypochromasia 1+, Anisocytosis 3+, Ovalocytes Occasional, Magnesium Level 2.9H, Total Bilirubin 2.8H, Direct Bilirubin 1.9H, Aspartate Amino Transf (AST/SGOT) 48470Y, Alanine Aminotransferase (ALT/SGPT) 8234H, Alkaline Phosphatase 153H, Total Protein 7.0, Albumin 3.4, Globulin 3.6, Albumin/Globulin Ratio 0.9L, Random Vancomycin Level 17.4 08/31/20 06:28: POC Whole Blood Glucose 157H 08/31/20 11:57: POC Whole Blood Glucose 243H Height (Feet): 5 Height (Inches): 5.00 Weight (Pounds): 152 Brady Gupta M.D. Aug 31, 2020 14:48
--- NOTE | 2020-08-31 15:05 | NUR ---
INSURANCE CLINICALS/REVIEW FAXED TO [facility] [phone] [facility] [phone]
[2020-08-31 16:00] VITALS: BP 91/60
[2020-08-31] MEDS ORDERED: Sodium Bicarbonate 50 ML in 1/2 NS 1000ml 1,000 ML IV SCH (16:00)
[2020-08-31] MEDS ORDERED: Calcium Gluconate 1gm/50ml 50 ML IVPB ONE (16:00)
[2020-08-31 16:37] LABS: APPEARANCE,URINE CLOUDY; BILIRUBIN, URINE 2+ (NEGATIVE); COLOR,URINE BROWN; GLUCOSE, URINE (UA) NEGATIVE (NEGATIVE); KETONES,URINE 1+ (NEGATIVE); LEUKOCYTE ESTERASE ,URINE 2+ (NEGATIVE); NITRITE,URINE POSITIVE (NEGATIVE); PH,URINE 5 (4.5-8.0); PROTEIN,URINE 3+ (NEGATIVE); UROBILINOGEN,URINE 1 MG/DL (0.0-1.0)
[2020-08-31 18:35] LABS: CALCIUM 6.1 MG/DL (8.5-10.1); POTASSIUM 3.7 MMOL/L (3.5-5.1)
--- NOTE | 2020-08-31 19:11 | NUR ---
NURSE HAND-OFF REPORT: Important Events on Shift: Patient Status: Stable Diet: Cardiac Pending Orders: Pending Results/Labs: Pending MD notification: Latest Vital Signs: Temperature 97.7 , Pulse 91 , B/P 91 /60 , Respiratory Rate 20 , O2 SAT 98 , Room Air, O2 Flow Rate . Vital Sign Comment: Stable EKG Rhythm: Sinus Rhythm Rhythm change?: N MD Notified?: Puneet Montoya MD Response: Message left await call Latest Davis Fall Score: 45 Fall Risk: High Risk Safety Measures: Call light Within Reach, Bed Alarm Zone 1, Side Rails Side Rails x2, Bed position Low and Locked. Fall Precautions: Yellow Socks Yellow Gown Patient Fall Education Report given to Gwendolyn/RN.
--- NOTE | 2020-08-31 19:12 | NUR ---
NURSE NOTES: Received pt [id number]; noted seating at the edge of the bed talking on the telephone; polish speaking but understands Spanish; Noted with PICC line on L upper arm with meds infusing; On O2 therapy 3L/min via NC in no acute distress; urinal at bedside; informed pt ask for assistance when needing to go to [facility] bathroom; bed locked and in low position; side rails x2; call light within easy reach; will continue to monitor.
[2020-08-31 20:00] VITALS: BP 99/63
[2020-08-31] MEDS: Atorvastatin 20mg tab ORAL SCH (20:49)
[2020-08-31] MEDS: DOBUTamine 250mg/250ml Premix IV SCH (20:52)
[2020-08-31] MEDS: Dyna-Hex 2% Top Sol 2oz TOPIC SCH (20:52)
--- NOTE | 2020-08-31 21:33 | Infectious Diseases Prog Note ---
Assessment/Plan Assessment/Plan Full consult dictated: A) 1) pneumonia, ? uti, sepsis, leukocytosis, bowen 2) pmh noted 3) allergies - nkda P) 1) change abx to zosyn and doxycycline - avoid nephrotoxic abx 2) f/u onj cultures, labs and chest x-ray, sputum culture pending 3) monitor labs 4) will f/u Subjective HEENT: Denies: congestion Respiratory: Denies: shortness of breath Cardiovascular: Denies: chest pain Gastrointestinal/Abdominal: Denies: nausea, vomiting, diarrhea Genitourinary: Reports: other - no [place] Allergies: Coded Allergies: No Known Allergies (Unverified , 06/03/20) Objective Last 24 Hour Vital Signs Date Time Temp Pulse Resp B/P (MAP) Pulse Ox O2 Delivery O2 Flow Rate FiO2 08/31/20 20:52 99/63 08/31/20 20:00 97.7 90 18 99/63 (75) 99 08/31/20 16:00 91 08/31/20 16:00 97.7 92 20 91/60 (70) 98 08/31/20 12:00 89 08/31/20 12:00 97.9 89 20 92/46 (61) 98 08/31/20 09:00 Room Air 08/31/20 08:00 97.9 91 20 97/64 (75) 96 08/31/20 08:00 93 08/31/20 04:00 97.5 98 20 106/73 (84) 98 08/31/20 04:00 98 08/31/20 00:00 97.9 74 24 95/63 (74) 08/31/20 00:00 89 08/30/20 21:33 85/59 Height (Feet): 5 Height (Inches): 5.00 Weight (Pounds): 152 General Appearance: no acute distress HEENT: normocephalic, atraumatic, anicteric, mucous membranes moist Respiratory/Chest: crackles/rales, rhonchi - bilaterally Cardiovascular: normal rate, regular rhythm Abdomen: normal bowel sounds, soft, non tender, no organomegaly Microbiology Date/Time Source Procedure Growth Status 08/30/20 15:33 Sputum Induced Gram Stain - Final Resulted 08/30/20 15:33 Sputum Induced Sputum Culture Pending Resulted Laboratory Tests Test 08/31/20 06:20 08/31/20 06:28 08/31/20 11:57 08/31/20 16:42 White Blood Count 17.4 K/UL (4.8-10.8) H Red Blood Count 3.59 M/UL (4.70-6.10) L Hemoglobin 9.9 G/DL (14.2-18.0) L Hematocrit 31.9 % (42.0-52.0) L Mean Corpuscular Volume 89 FL (80-99) Mean Corpuscular Hemoglobin 27.7 PG (27.0-31.0) Mean Corpuscular Hemoglobin Concent 31.1 G/DL (32.0-36.0) L Red Cell Distribution Width 21.8 % (11.6-14.8) H Platelet Count 187 K/UL (150-450) Mean Platelet Volume 8.1 FL (6.5-10.1) Neutrophils (%) (Auto) % (45.0-75.0) Lymphocytes (%) (Auto) % (20.0-45.0) Monocytes (%) (Auto) % (1.0-10.0) Eosinophils (%) (Auto) % (0.0-3.0) Basophils (%) (Auto) % (0.0-2.0) Differential Total Cells Counted 100 Neutrophils % (Manual) 88 % (45-75) H Lymphocytes % (Manual) 3 % (20-45) L Monocytes % (Manual) 9 % (1-10) Eosinophils % (Manual) 0 % (0-3) Basophils % (Manual) 0 % (0-2) Band Neutrophils 0 % (0-8) Platelet Estimate Adequate Platelet Morphology Normal Polychromasia 1+ Hypochromasia 1+ Anisocytosis 3+ Ovalocytes Occasional Sodium Level 134 MMOL/L (136-145) L Potassium Level 4.2 MMOL/L (3.5-5.1) Chloride Level 95 MMOL/L (98-107) L Carbon Dioxide Level 19 MMOL/L (21-32) L Anion Gap 20 mmol/L (5-15) H Blood Urea Nitrogen 85 mg/dL (7-18) H Creatinine 5.3 MG/DL (0.55-1.30) H Estimat Glomerular Filtration Rate 10.5 mL/min (>60) Glucose Level 145 MG/DL (74-106) H Calcium Level 6.9 MG/DL (8.5-10.1) L Magnesium Level 2.9 MG/DL (1.8-2.4) H Total Bilirubin 2.8 MG/DL (0.2-1.0) H Direct Bilirubin 1.9 MG/DL (0.0-0.3) H Aspartate Amino Transf (AST/SGOT) 01206 U/L (15-37) H Alanine Aminotransferase (ALT/SGPT) 8234 U/L (12-78) H Alkaline Phosphatase 153 U/L (46-116) H Total Protein 7.0 G/DL (6.4-8.2) Albumin 3.4 G/DL (3.4-5.0) Globulin 3.6 g/dL Albumin/Globulin Ratio 0.9 (1.0-2.7) L Random Vancomycin Level 17.4 ug/mL POC Whole Blood Glucose 157 MG/DL (74-106) H 243 MG/DL (74-106) H 249 MG/DL (74-106) H Test 08/31/20 17:30 08/31/20 21:01 Sodium Level 132 MMOL/L (136-145) L Potassium Level 3.7 MMOL/L (3.5-5.1) Chloride Level 93 MMOL/L (98-107) L Carbon Dioxide Level 21 MMOL/L (21-32) Anion Gap 18 mmol/L (5-15) H Blood Urea Nitrogen 100 mg/dL (7-18) H Creatinine 6.0 MG/DL (0.55-1.30) H Estimat Glomerular Filtration Rate 9.1 mL/min (>60) Glucose Level 233 MG/DL (74-106) H Calcium Level 6.1 MG/DL (8.5-10.1) L POC Whole Blood Glucose 221 MG/DL (74-106) H Current Medications Medications (Trade) Dose Ordered Sig/[place] Route PRN Reason Start Time Stop Time Status Last Admin Dose Admin Acetaminophen (Tylenol) 650 mg Q4H PRN ORAL Mild Pain (Pain Scale 1-3) 08/25/20 18:15 09/24/20 18:14 Atorvastatin Calcium (Lipitor) 20 mg BEDTIME ORAL 08/26/20 21:00 11/24/20 20:59 08/31/20 20:49 Chlorhexidine Gluconate (Antonette-Hex 2%) 1 applic DAILY@2000 TOPIC 08/28/20 20:00 11/26/20 19:59 08/31/20 20:52 Dextrose (Dextrose 50%) 25 ml Q30M PRN IV Hypoglycemia 08/25/20 18:15 11/23/20 18:14 Dextrose (Dextrose 50%) 50 ml Q30M PRN IV Hypoglycemia 08/25/20 18:15 11/23/20 18:14 Dobutamine HCl 250 ml @ 12.41 mls/ hr Q24H IV 08/30/20 21:00 09/02/20 20:57 08/31/20 20:52 Famotidine (Pepcid) 40 mg DAILY ORAL 08/26/20 09:00 11/24/20 08:59 08/31/20 08:26 Ferrous Gluconate (Fergon) 324 mg EVERY OTHER DAY ORAL 08/30/20 12:00 11/28/20 11:59 08/30/20 11:18 Heparin Sodium (Porcine) (Heparin 5000 units/ml) 5,000 units EVERY 12 HOURS SUBQ 08/26/20 09:00 10/10/20 08:59 08/31/20 20:50 Insulin Aspart (NovoLOG) BEFORE MEALS AND HS SUBQ 08/25/20 21:00 11/23/20 20:59 08/31/20 21:04 Ondansetron HCl (Zofran) 4 mg Q6H PRN IVP Nausea & Vomiting 08/31/20 14:00 09/30/20 13:59 08/31/20 14:16 Patient Own Medication (Patient's Own Med) 1 ea DAILY ORAL 08/27/20 09:00 09/26/20 08:59 08/31/20 08:34 Patient Own Medication (Patient's Own Med) 1 ea DAILY ORAL 08/27/20 09:00 09/26/20 08:59 08/31/20 08:34 Sodium Bicarbonate 50 ml/ Sodium Chloride 1,050 ml @ 50 mls/hr Q21H IV 08/31/20 16:00 09/30/20 15:59 08/31/20 16:47 Herve Holden MD Aug 31, 2020 21:33
--- NOTE | 2020-08-31 23:14 | Consultation ---
DATE OF CONSULTATION: 08/31/2020 ADDENDUM With regards to patient's pneumonia, he also could have a healthcare-acquired pneumonia such as aspiration pneumonia. However, he could also have evolving community-acquired pneumonia. Again, we will continue Zosyn and doxycycline for the pneumonia, possible UTI, sepsis, elevated white count. With regards to the acute kidney injury and elevated liver enzymes, we will follow up on ultrasound, Nephrology follow up, and GI follow up. In addition, check hepatitis panel. In regards to the HIV, we will check CD4 and viral load. Continue antiviral therapy. He is taking his own medications currently. Discussed with pharmacy. Herve Holden M.D. DR: ELIGIO JOB#: [id number] CC:
[2020-09-01] VITALS (20 sets, daily range): BP systolic 86–110; BP diastolic 42–74
--- NOTE | 2020-09-01 02:14 | Consultation ---
DATE OF CONSULTATION: 08/31/2020 INFECTIOUS DISEASES CONSULTATION CONSULTING PHYSICIAN: Herve Holden MD ATTENDING PHYSICIAN: Og Dhillon MD REFERRING PHYSICIAN: Luis Nelson DO REASON FOR CONSULTATION: Pneumonia, UTI, sepsis, leukocytosis. CHIEF COMPLAINT: The patient's chief complaint coming in the hospital is shortness of breath. HISTORY OF PRESENT ILLNESS: This is a very pleasant 80-year-old male who comes in to [facility] with shortness of breath. The patient was noted to have significant right-sided pneumonia and possible left-sided pneumonia. The patient also has renal failure, elevated white count, and sepsis. Blood cultures negative to date. Questionable UTI with 15 to 20 white blood cells on urinalysis. Urine culture at this time is, I believe, pending. Infectious Disease consultation was requested for antibiotic management. The patient was initially started on vancomycin, cefepime, and Flagyl. However, his renal failure has worsened. We placed the patient on Zosyn and doxycycline for now. MAR was noted. Orders were noted. Notes were reviewed. REVIEW OF SYSTEMS: GENERAL: Main issue is shortness of breath. He has no fever or chills. CARDIAC: No chest pain. GASTROINTESTINAL: No nausea, vomiting, or diarrhea. GENITOURINARY: Some dysuria and frequency. PULMONARY: He has shortness of breath. SKIN: No rash. EXTREMITIES: He has edema. NEUROLOGIC: No seizures. PAST MEDICAL HISTORY: Includes following: Hypertension, HIV, AIDS, dyslipidemia, and diabetes. ALLERGIES: He has no known drug allergies. No antibiotic allergies. SOCIAL HISTORY: Negative for smoking, alcohol, drug abuse. FAMILY HISTORY: Noncontributory. MEDICATIONS: Upon reviewing the MAR, he is on following medications. He is on IV fluids, Zofran, dobutamine, ferrous sulfate, and chlorhexidine. He takes his own medications from home. He is on Lipitor, Pepcid, heparin, and insulin. Outside medications noted and reconciliated. His outside medications include atorvastatin. He is on Prezcobix. He is on raltegravir, Prezcobix which is darunavir and cobicistat, and dolutegravir which is Tivicay. He is on furosemide and loratadine. He is on metoprolol, omeprazole, spironolactone, tamsulosin, and testosterone. Outside medications noted and reconcilated. PHYSICAL EXAMINATION: VITAL SIGNS: Temperature 97.7, pulse rate 90, respiratory rate 18, blood pressure 99/63, saturation 99% on room air. GENERAL: Alert and responsive, in no distress. Mild shortness of breath only. HEAD AND NECK: Oral exam, no thrush. Eye exam, no icterus. Normocephalic. Neck is supple. No JVD HEART: Regular. No gallop or murmur. No friction rub. ABDOMEN: Soft. Positive bowel sounds. Nontender. LUNGS: Few bilateral rhonchi, rales, and crackles. SKIN: No rash. MUSCULOSKELETAL: No effusion. Legs are without cellulitis. He has edema. PERIPHERAL VASCULAR: No gangrene. He has edema on the feet. GENITOURINARY: No [place]. LINE SITES: Without phlebitis. NEUROLOGIC: . Alert and responsive. LABORATORY DATA: UA had 15 to 20 white blood cells, many bacteria, positive nitrite, positive leukocyte esterase. LFTs noted. Creatinine 6.0, AST is 11,527, ALT is 8234. Total bilirubin 2.8. C-reactive protein 13.6. White count 17.4 and hemoglobin 9.9. Urinalysis as mentioned, positive nitrite, positive leukocyte esterase, 15-20 white blood cells. Cultures, blood cultures are negative to date. Sputum culture is pending. Urine culture pending. COVID testing negative. Chest x-ray shows a PICC line and also shows worsening right dense diffuse right lung consolidation, possible left lung consolidation versus atelectasis retrocardiac area. ASSESSMENT AND PLAN: 1. The patient has what looks like pneumonia. The patient could have community-acquired pneumonia, urinary tract infection with sepsis, elevated white count. Chest x-ray is showing worsening pneumonia. No risk for aspiration at this time. The patient was on vanco, Rocephin, and Flagyl for the pneumonia, sepsis, and possible UTI. Leukocytosis has worsened. We will change antibiotics to Zosyn and doxycycline. Avoid nephrotoxic drugs if possible. Await sputum culture. Check followup laboratories and chest x-ray. Blood cultures negative to date. Check urine culture. Continue Zosyn and doxycycline for pneumonia and sepsis. Avoid nephrotoxic drugs. Final followup on cultures and labs. 2. HIV and history of AIDS. We will continue anti-retroviral therapy. I believe the patient is taking his own medications. I will discuss with pharmacy to adjusting the dosing medications include Tivicay and Prezcobix. Check CD4 and viral load if not done. 3. Elevated LFTs. We will check abdominal ultrasound and also check liver, check hepatitis panel for elevated LFTs. Consider GI evaluation if not done before. 4. Renal failure. 5. Diabetes. 6. Hypertension. 7. Hyperlipidemia. 8. Diabetes and hypertension treatment per primary care team. 9. Dyslipidemia treatment per primary care team. 10. Continue Plavix. 11. No allergies. 12. Social history is negative. 13. Family history is noncontributory. 14. MAR is noted. 15. Case discussed with RN. 16. Renal failure and renal followup. Herve Holden M.D. DR: ESTRELLITA JOB#: [id number] CC:
--- NOTE | 2020-09-01 03:41 | NUR ---
NURSE NOTES: Bladder scan done and result 226ml; pt voided 200 ml using urinal around 2100 dark mayo urine; pt denies any pain upon palpation; no c/o pressure feeling in the bladder; no bladder distention noted upon palpation; pt remains on fluid restriction 1500 ml. Will continue to monitor.
--- NOTE | 2020-09-01 06:32 | Hematology/Onc Progress Note ---
Assessment/Plan Assessment/Plan Assessment and Recs # Anemia of iron deficiency, unspecified rule out gi bleed --> obtain a anemia panel, has been ordered--> reviewed --> po iron has been started --> hgb goal is >7, transfuse as needed --> trend CBC daily to make sure no major acute drop --> no evidence of hemolysis noted --> hgb 10->9.9 # Leukocytosis/elevated white blood cell count, unspecified likely related to infection/PNA --> have reviewed peripheral smear and bandemia/neutrophilia noted --> ABX vanc/cefepime-->zosyn/doxy --> monitor for resolution --> wbc 17 # AHSAN due to CRS1 --> as per renal # Acute on chronic decompensated CHF --> cards aware, diuresing # HTN # DM # HIV # Dvt ppx heparin sq The timing of this note does not necessarily reflect the time of the patient was seen. Greatly appreciate consultation. Subjective Constitutional: Denies: no symptoms, chills, fever, malaise, weakness, other HEENT: Denies: no symptoms, eye pain, blurred vision, tearing, double vision, ear pain, ear discharge, nose pain, nose congestion, throat pain, throat swelling, mouth pain, mouth swelling, other Cardiovascular: Denies: no symptoms, chest pain, edema, irregular heart rate, lightheadedness, palpitations, syncope, other Respiratory: Denies: no symptoms, cough, shortness of breath, SOB with excertion, SOB at rest, sputum, wheezing, other Gastrointestinal/Abdominal: Denies: no symptoms, abdomen distended, abdominal pain, black stools, tarry stools, blood in stool, constipated, diarrhea, difficulty swallowing, nausea, poor appetite, poor fluid intake, rectal bleeding, vomiting, other Genitourinary: Denies: no symptoms, burning, discharge, frequency, flank pain, hematuria, incontinence, pain, urgency, other Neurologic/Psychiatric: Denies: no symptoms, anxiety, depressed, emotional problems, headache, numbness, paresthesia, pre-existing deficit, seizure, tingling, tremors, weakness, other Endocrine: Denies: no symptoms, excessive sweating, flushing, intolerance to cold, intolerance to heat, increased hunger, increased thirst, increased urine, unexplained weight gain, unexplained weight loss, other Hematologic/Lymphatic: Denies: no symptoms, anemia, easy bleeding, easy bruising, adenopathy, other Allergies: Coded Allergies: No Known Allergies (Unverified , 06/03/20) Subjective 09/01 is on zosyn and doxy, urine reviewed, elvin, zacarias Rn, labs pending Objective Objective Current Medications Medications (Trade) Dose Ordered Sig/[place] Route PRN Reason Start Time Stop Time Status Last Admin Dose Admin Acetaminophen (Tylenol) 650 mg Q4H PRN ORAL Mild Pain (Pain Scale 1-3) 08/25/20 18:15 09/24/20 18:14 Atorvastatin Calcium (Lipitor) 20 mg BEDTIME ORAL 08/26/20 21:00 11/24/20 20:59 08/31/20 20:49 Chlorhexidine Gluconate (Antonette-Hex 2%) 1 applic DAILY@1999 TOPIC 08/28/20 20:00 11/26/20 19:59 08/31/20 20:52 Dextrose (Dextrose 50%) 25 ml Q30M PRN IV Hypoglycemia 08/25/20 18:15 11/23/20 18:14 Dextrose (Dextrose 50%) 50 ml Q30M PRN IV Hypoglycemia 08/25/20 18:15 11/23/20 18:14 Dobutamine HCl 250 ml @ 12.41 mls/ hr Q24H IV 08/30/20 21:00 09/02/20 20:57 08/31/20 20:52 Doxycycline Hyclate 100 mg/ Dextrose 100 ml @ 100 mls/hr Q12HR IV 09/01/20 09:00 09/08/20 08:59 Famotidine (Pepcid) 40 mg DAILY ORAL 08/26/20 09:00 11/24/20 08:59 08/31/20 08:26 Ferrous Gluconate (Fergon) 324 mg EVERY OTHER DAY ORAL 08/30/20 12:00 11/28/20 11:59 08/30/20 11:18 Heparin Sodium (Porcine) (Heparin 5000 units/ml) 5,000 units EVERY 12 HOURS SUBQ 08/26/20 09:00 10/10/20 08:59 08/31/20 20:50 Insulin Aspart (NovoLOG) BEFORE MEALS AND HS SUBQ 08/25/20 21:00 11/23/20 20:59 08/31/20 21:04 Ondansetron HCl (Zofran) 4 mg Q6H PRN IVP Nausea & Vomiting 08/31/20 14:00 09/30/20 13:59 08/31/20 14:16 Patient Own Medication (Patient's Own Med) 1 ea DAILY ORAL 08/27/20 09:00 09/26/20 08:59 08/31/20 08:34 Patient Own Medication (Patient's Own Med) 1 ea DAILY ORAL 08/27/20 09:00 09/26/20 08:59 08/31/20 08:34 Piperacillin Sod/ Tazobactam Sod 3.375 gm/Dextrose 100 ml @ 25 mls/hr EVERY 12 HOURS IVPB 09/01/20 09:00 09/06/20 08:59 Sodium Bicarbonate 50 ml/ Sodium Chloride 1,050 ml @ 50 mls/hr Q21H IV 08/31/20 16:00 09/30/20 15:59 08/31/20 16:47 Last 24 Hour Vital Signs Date Time Temp Pulse Resp B/P (MAP) Pulse Ox O2 Delivery O2 Flow Rate FiO2 09/01/20 04:00 89 09/01/20 04:00 97.0 90 20 94/57 (69) 96 09/01/20 00:00 89 09/01/20 00:00 97.5 85 18 94/55 (68) 99 08/31/20 21:00 Room Air 08/31/20 20:52 99/63 08/31/20 20:00 86 08/31/20 20:00 97.7 90 18 99/63 (75) 99 08/31/20 16:00 91 08/31/20 16:00 97.7 92 20 91/60 (70) 98 08/31/20 12:00 89 08/31/20 12:00 97.9 89 20 92/46 (61) 98 08/31/20 09:00 Room Air 08/31/20 08:00 97.9 91 20 97/64 (75) 96 08/31/20 08:00 93 08/31/20 04:00 97.5 98 20 106/73 (84) 98 08/31/20 04:00 98 08/31/20 00:00 97.9 74 24 95/63 (74) 08/31/20 00:00 89 08/30/20 21:33 85/59 08/30/20 21:00 Room Air 08/30/20 20:00 89 08/30/20 20:00 97.6 88 18 85/59 (68) 100 08/30/20 16:00 97.7 84 20 82/45 (57) 98 08/30/20 15:52 87 08/30/20 12:00 97.7 89 20 89/56 (67) 96 08/30/20 12:00 80 08/30/20 09:00 Room Air 08/30/20 08:00 76 08/30/20 08:00 97.7 84 20 84/57 (66) 100 Intake and Output 08/31/20 09/01/20 18:59 06:59 Intake Total 236 ml Output Total 500 ml 550 ml Balance -264 ml -550 ml Intake Oral 236 ml Output Urine Total 500 ml 550 ml # Voids 4 Labs Test 08/29/20 11:56 08/29/20 17:18 08/29/20 21:05 08/30/20 06:00 POC Whole Blood Glucose 274 MG/DL (74-106) 274 MG/DL (74-106) White Blood Count 18.2 K/UL (4.8-10.8) Red Blood Count 3.57 M/UL (4.70-6.10) Hemoglobin 10.0 G/DL (14.2-18.0) Hematocrit 32.2 % (42.0-52.0) Mean Corpuscular Volume 90 FL (80-99) Mean Corpuscular Hemoglobin 27.8 PG (27.0-31.0) Mean Corpuscular Hemoglobin Concent 30.9 G/DL (32.0-36.0) Red Cell Distribution Width 23.0 % (11.6-14.8) Platelet Count 223 K/UL (150-450) Mean Platelet Volume 7.2 FL (6.5-10.1) Neutrophils (%) (Auto) % (45.0-75.0) Lymphocytes (%) (Auto) % (20.0-45.0) Monocytes (%) (Auto) % (1.0-10.0) Eosinophils (%) (Auto) % (0.0-3.0) Basophils (%) (Auto) % (0.0-2.0) Differential Total Cells Counted 100 Neutrophils % (Manual) 84 % (45-75) Lymphocytes % (Manual) 7 % (20-45) Monocytes % (Manual) 9 % (1-10) Eosinophils % (Manual) 0 % (0-3) Basophils % (Manual) 0 % (0-2) Band Neutrophils 0 % (0-8) Platelet Estimate Adequate Platelet Morphology Normal Polychromasia 1+ Hypochromasia 1+ Anisocytosis 3+ Ovalocytes Occasional Sodium Level 135 MMOL/L (136-145) Potassium Level 5.6 MMOL/L (3.5-5.1) Chloride Level 99 MMOL/L (98-107) Carbon Dioxide Level 19 MMOL/L (21-32) Anion Gap 17 mmol/L (5-15) Blood Urea Nitrogen 55 mg/dL (7-18) Creatinine 3.7 MG/DL (0.55-1.30) Estimat Glomerular Filtration Rate 16.0 mL/min (>60) Glucose Level 183 MG/DL (74-106) Calcium Level 7.8 MG/DL (8.5-10.1) Magnesium Level 2.6 MG/DL (1.8-2.4) Test 08/30/20 06:14 08/30/20 08:40 08/30/20 16:28 08/30/20 19:12 White Blood Count 16.8 K/UL (4.8-10.8) Red Blood Count 3.65 M/UL (4.70-6.10) Hemoglobin 10.2 G/DL (14.2-18.0) Hematocrit 32.8 % (42.0-52.0) Mean Corpuscular Volume 90 FL (80-99) Mean Corpuscular Hemoglobin 28.0 PG (27.0-31.0) Mean Corpuscular Hemoglobin Concent 31.1 G/DL (32.0-36.0) Red Cell Distribution Width 22.1 % (11.6-14.8) Platelet Count 236 K/UL (150-450) Mean Platelet Volume 8.2 FL (6.5-10.1) Neutrophils (%) (Auto) 83.3 % (45.0-75.0) Lymphocytes (%) (Auto) 8.8 % (20.0-45.0) Monocytes (%) (Auto) 7.4 % (1.0-10.0) Eosinophils (%) (Auto) 0.1 % (0.0-3.0) Basophils (%) (Auto) 0.4 % (0.0-2.0) Sodium Level 137 MMOL/L (136-145) 132 MMOL/L (136-145) Potassium Level 5.3 MMOL/L (3.5-5.1) 5.4 MMOL/L (3.5-5.1) Chloride Level 99 MMOL/L (98-107) 95 MMOL/L (98-107) Carbon Dioxide Level 21 MMOL/L (21-32) 16 MMOL/L (21-32) Anion Gap 17 mmol/L (5-15) 21 mmol/L (5-15) Blood Urea Nitrogen 58 mg/dL (7-18) 73 mg/dL (7-18) Creatinine 3.8 MG/DL (0.55-1.30) 4.8 MG/DL (0.55-1.30) Estimat Glomerular Filtration Rate 15.5 mL/min (>60) 11.8 mL/min (>60) Glucose Level 155 MG/DL (74-106) 184 MG/DL (74-106) Hemoglobin A1c 6.3 % (4.3-6.0) Calcium Level 7.8 MG/DL (8.5-10.1) 8.0 MG/DL (8.5-10.1) Magnesium Level 2.8 MG/DL (1.8-2.4) C-Reactive Protein, Quantitative 13.6 mg/dL (0.00-0.90) Urine Color Brown Urine Appearance Cloudy Urine pH 5 (4.5-8.0) Urine Specific [place] 1.020 (1.005-1.035) Urine Protein 3+ (NEGATIVE) Urine Glucose (UA) Negative (NEGATIVE) Urine Ketones 1+ (NEGATIVE) Urine Blood 5+ (NEGATIVE) Urine Nitrite Positive (NEGATIVE) Urine Bilirubin 2+ (NEGATIVE) Urine Ictotest Negative (NEGATIVE) Urine Urobilinogen 1 MG/DL (0.0-1.0) Urine Leukocyte Esterase 2+ (NEGATIVE) Urine RBC 10-15 /HPF (0 - 0) Urine WBC 15-20 /HPF (0 - 0) Urine Squamous Epithelial Cells Few /LPF (NONE/OCC) Urine Amorphous Sediment Many /LPF (NONE) Urine Bacteria Many /HPF (NONE) Test 08/30/20 21:31 08/31/20 06:20 08/31/20 06:28 08/31/20 11:57 POC Whole Blood Glucose 178 MG/DL (74-106) 157 MG/DL (74-106) 243 MG/DL (74-106) White Blood Count 17.4 K/UL (4.8-10.8) Red Blood Count 3.59 M/UL (4.70-6.10) Hemoglobin 9.9 G/DL (14.2-18.0) Hematocrit 31.9 % (42.0-52.0) Mean Corpuscular Volume 89 FL (80-99) Mean Corpuscular Hemoglobin 27.7 PG (27.0-31.0) Mean Corpuscular Hemoglobin Concent 31.1 G/DL (32.0-36.0) Red Cell Distribution Width 21.8 % (11.6-14.8) Platelet Count 187 K/UL (150-450) Mean Platelet Volume 8.1 FL (6.5-10.1) Neutrophils (%) (Auto) % (45.0-75.0) Lymphocytes (%) (Auto) % (20.0-45.0) Monocytes (%) (Auto) % (1.0-10.0) Eosinophils (%) (Auto) % (0.0-3.0) Basophils (%) (Auto) % (0.0-2.0) Differential Total Cells Counted 100 Neutrophils % (Manual) 88 % (45-75) Lymphocytes % (Manual) 3 % (20-45) Monocytes % (Manual) 9 % (1-10) Eosinophils % (Manual) 0 % (0-3) Basophils % (Manual) 0 % (0-2) Band Neutrophils 0 % (0-8) Platelet Estimate Adequate Platelet Morphology Normal Polychromasia 1+ Hypochromasia 1+ Anisocytosis 3+ Ovalocytes Occasional Sodium Level 134 MMOL/L (136-145) Potassium Level 4.2 MMOL/L (3.5-5.1) Chloride Level 95 MMOL/L (98-107) Carbon Dioxide Level 19 MMOL/L (21-32) Anion Gap 20 mmol/L (5-15) Blood Urea Nitrogen 85 mg/dL (7-18) Creatinine 5.3 MG/DL (0.55-1.30) Estimat Glomerular Filtration Rate 10.5 mL/min (>60) Glucose Level 145 MG/DL (74-106) Calcium Level 6.9 MG/DL (8.5-10.1) Magnesium Level 2.9 MG/DL (1.8-2.4) Total Bilirubin 2.8 MG/DL (0.2-1.0) Direct Bilirubin 1.9 MG/DL (0.0-0.3) Aspartate Amino Transf (AST/SGOT) 48038 U/L (15-37) Alanine Aminotransferase (ALT/SGPT) 8234 U/L (12-78) Alkaline Phosphatase 153 U/L (46-116) Total Protein 7.0 G/DL (6.4-8.2) Albumin 3.4 G/DL (3.4-5.0) Globulin 3.6 g/dL Albumin/Globulin Ratio 0.9 (1.0-2.7) Random Vancomycin Level 17.4 ug/mL Test 08/31/20 16:42 08/31/20 17:30 08/31/20 21:01 09/01/20 06:05 POC Whole Blood Glucose 249 MG/DL (74-106) 221 MG/DL (74-106) Sodium Level 132 MMOL/L (136-145) Potassium Level 3.7 MMOL/L (3.5-5.1) Chloride Level 93 MMOL/L (98-107) Carbon Dioxide Level 21 MMOL/L (21-32) Anion Gap 18 mmol/L (5-15) Blood Urea Nitrogen 100 mg/dL (7-18) Creatinine 6.0 MG/DL (0.55-1.30) Estimat Glomerular Filtration Rate 9.1 mL/min (>60) Glucose Level 233 MG/DL (74-106) Calcium Level 6.1 MG/DL (8.5-10.1) Height (Feet): 5 Height (Inches): 5.00 Weight (Pounds): 152 Objective Physical Exam General Appearance: no apparent distress Lines, tubes and drains: peripheral HEENT: normocephalic, atraumatic Neck: non-tender, normal alignment Respiratory/Chest: chest wall non-tender, lungs clear Cardiovascular/Chest: normal peripheral pulses, normal rate Abdomen: normal bowel sounds, non tender, soft Neurologic: alert, oriented x 3 Derrick Cisneros MD Sep 01, 2020 06:32
[2020-09-01 06:35] LABS: HEMOGLOBIN 9.2 G/DL (14.2-18.0); MEAN CORPUSCULAR VOLUME 87 FL (80-99); PLATELET COUNT 157 K/UL (150-450); RED BLOOD COUNT 3.35 M/UL (4.70-6.10); RED CELL DISTRIBUTION WIDTH 21.1 % (11.6-14.8); WHITE BLOOD COUNT 15.3 K/UL (4.8-10.8)
[2020-09-01] MEDS: NovoLOG Insulin Flexpen SUBQ SCH ×5 (06:44→21:00)
[2020-09-01 07:08] LABS: ALBUMIN 3.2 G/DL (3.4-5.0); BILIRUBIN,TOTAL 2.9 MG/DL (0.2-1.0); CREATININE 6.6 MG/DL (0.55-1.30); PHOSPHORUS 8.6 MG/DL (2.5-4.9); POTASSIUM 3.6 MMOL/L (3.5-5.1)
[2020-09-01 07:09] LABS: CALCIUM 5.8 MG/DL (8.5-10.1)
[2020-09-01 07:11] LABS: BILIRUBIN,DIRECT 2.2 MG/DL (0.0-0.3)
--- NOTE | 2020-09-01 07:15 | NUR ---
NURSE HAND-OFF REPORT: Important Events on Shift: Dobutamine drip at 12.41 ml/hr; current wt today 62.8 kg; spoke to Harshil from pharmacy and accdg to her that should be fine; IVY Albarado, aware; Urine output void via urinal 550 ml throughout shift; bladder scan q 4-6 hrs; bladder scan output around 0300 226 ml; abdominal ultrasound and CXR today. Patient Status: stable, AOX4 Diet: cardiac diet Pending Orders: n/a Pending Results/Labs: morning labs; blood and sputum cx pending Pending MD notification: n/a Latest Vital Signs: Temperature 97.0 , Pulse 89 , B/P 94 /57 , Respiratory Rate 20 , O2 SAT 96 , Room Air, O2 Flow Rate . Vital Sign Comment: stable EKG Rhythm: Sinus Rhythm Rhythm change?: N Notified?: N Response: N/A Latest Davis Fall Score: 45 Fall Risk: High Risk Safety Measures: Call light Within Reach, Bed Alarm Zone 1, Side Rails Side Rails x2, Bed position Low and Locked. Fall Precautions: Yellow Socks Yellow Gown Patient Fall Education Report given to IVY Albarado[].
--- NOTE | 2020-09-01 07:21 | NUR ---
NURSE NOTES: Pt received from Dimitrios HAYNES, pt in bed sleeping. Dobutamine running at 3mcg/kg in left arm PICC line. No distress or SOB present at this time. Bed low and locked, call light within reach. Madeline rn confirmed rate of dobutamine with Harshil pharmacist this morning.
--- NOTE | 2020-09-01 08:15 | NUR ---
RD ASSESSMENT & RECOMMENDATIONS SEE CARE ACTIVITY FOR COMPLETE ASSESSMENT DAILY ESTIMATED NEEDS: Needs based on HIV, wasting, renal no HD 62.8kg 30-35 kcals/kg 1429-9206 total kcals 1-1.2 g protein/kg 63-75 g total protein Fluid per MD NUTRITION DIAGNOSIS: Altered nutrition related lab values r/t clinical status as evidenced by elevated BUN(105 trending up), elev Creat(6.6 trending up), elev phos, mg, LFT's, T bili. (CURRENT DIET: Cardiac) PO DIET RECOMMENDATIONS--->>>> REC DIET CHANGE TO RENAL DIET ADDITIONAL RECOMMENDATIONS: 1) PO intake appears lower now, add NEPRO BID 2) Obtain a standing weight as able 3) F/up w/ renal Rec Diet change as above
--- NOTE | 2020-09-01 08:17 | General Progress Note ---
Subjective ROS Limited/Unobtainable: Yes Allergies: Coded Allergies: No Known Allergies (Unverified , 06/03/20) Objective Last 24 Hour Vital Signs Date Time Temp Pulse Resp B/P (MAP) Pulse Ox O2 Delivery O2 Flow Rate FiO2 09/01/20 04:00 89 09/01/20 04:00 97.0 90 20 94/57 (69) 96 09/01/20 00:00 89 09/01/20 00:00 97.5 85 18 94/55 (68) 99 08/31/20 21:00 Room Air 08/31/20 20:52 99/63 08/31/20 20:00 86 08/31/20 20:00 97.7 90 18 99/63 (75) 99 08/31/20 16:00 91 08/31/20 16:00 97.7 92 20 91/60 (70) 98 08/31/20 12:00 89 08/31/20 12:00 97.9 89 20 92/46 (61) 98 08/31/20 09:00 Room Air Intake and Output 08/31/20 09/01/20 19:00 07:00 Intake Total 236 ml Output Total 500 ml 550 ml Balance -264 ml -550 ml Intake Oral 236 ml Output Urine Total 500 ml 550 ml # Voids 4 Laboratory Tests 08/31/20 11:57: POC Whole Blood Glucose 243H 08/31/20 16:42: POC Whole Blood Glucose 249H 08/31/20 17:30: Sodium Level 132L, Potassium Level 3.7, Chloride Level 93L, Carbon Dioxide Level 21, Anion Gap 18H, Blood Urea Nitrogen 100H, Creatinine 6.0H, Estimat Glomerular Filtration Rate 9.1, Glucose Level 233H, Calcium Level 6.1L 08/31/20 21:01: POC Whole Blood Glucose 221H 09/01/20 06:05: White Blood Count [Pending], Red Blood Count 3.35L, Hemoglobin 9.2L, Hematocrit 29.0L, Mean Corpuscular Volume 87, Mean Corpuscular Hemoglobin 27.6, Mean Corpuscular Hemoglobin Concent 31.9L, Red Cell Distribution Width 21.1H, Platelet Count 157, Mean Platelet Volume 8.2, Neutrophils (%) (Auto) , Lymphocytes (%) (Auto) , Monocytes (%) (Auto) , Eosinophils (%) (Auto) , Basophils (%) (Auto) , Neutrophils % (Manual) [Pending], Lymphocytes % (Manual) [Pending], Lymphocytes [Pending], Platelet Estimate [Pending], Platelet Morphology [Pending], Sodium Level 130L, Potassium Level 3.6, Chloride Level 92L , Carbon Dioxide Level 18L, Anion Gap 20H, Blood Urea Nitrogen 105H, Creatinine 6.6H, Estimat Glomerular Filtration Rate 8.2, Glucose Level 170H, Calcium Level 5.8*L, Phosphorus Level 8.6H, Magnesium Level 2.6H, Total Bilirubin 2.9H, Direct Bilirubin 2.2H, Aspartate Amino Transf (AST/SGOT) 6048H, Alanine Aminotransferase (ALT/SGPT) 5432H, Alkaline Phosphatase 162H, Total Protein 6.5, Albumin 3.2L, Globulin 3.3, Albumin/Globulin Ratio 1.0, Percent CD3 Cells [Pending], Absolute CD3 Count [Pending], Percent CD4 Cells [Pending], Absolute CD4 Count [Pending], T-Lymphocyte CD4/CD8 Ratio [Pending], Percent CD8 Cells [Pending], Absolute CD8 Count [Pending], Hepatitis A IgM Antibody [Pending], He patitis B Surface Antigen [Pending], Hepatitis B Core IgM Antibody [Pending], Hepatitis C Antibody [Pending], HIV-1 RNA (PCR) log10 Value [Pending], HIV-1 RNA Ultraquantitative (PCR) [Pending] Height (Feet): 5 Height (Inches): 5.00 Weight (Pounds): 152 General Appearance: no apparent distress EENT: normal ENT inspection Neck: supple Cardiovascular: normal rate Respiratory/Chest: decreased breath sounds Abdomen: normal bowel sounds, non tender, soft Extremities: non-tender Assessment/Plan Problem List: (1) NSTEMI (non-ST elevated myocardial infarction) ICD Codes: I21.4 - Non-ST elevation (NSTEMI) myocardial infarction SNOMED: 74739813 (2) Anemia ICD Codes: D64.9 - Anemia, unspecified SNOMED: 181527334 (3) CHF (congestive heart failure) ICD Codes: I50.9 - Heart failure, unspecified SNOMED: 60021689 (4) Pleural effusion ICD Codes: J90 - Pleural effusion, not elsewhere classified SNOMED: 43110651 (5) Acute on chronic systolic (congestive) heart failure ICD Codes: I50.23 - Acute on chronic systolic (congestive) heart failure SNOMED: 305167950, [id number] Assessment/Plan: shock liver anemia DM HIV fu LFTS fu hepatitis panel abd us if needed fu cardiology recs Camron Roman MD Sep 01, 2020 08:17
[2020-09-01] MEDS: Patient's Own Med - Prezcobix 800/150mg ORAL SCH (08:23)
[2020-09-01] MEDS: Calcium Gluconate 1gm/50ml 50 ML IVPB SCH ×4 (08:23→19:44)
[2020-09-01] MEDS: Patient's Own Med - Tivicay 50mg ORAL SCH (08:23)
[2020-09-01] MEDS: Ferrous Gluconate 324 MG TAB ORAL SCH (08:24)
[2020-09-01] MEDS: Heparin 5000 units/ml inj SUBQ SCH ×2 (08:25→21:00)
--- NOTE | 2020-09-01 08:42 | Cardiac Electrophysiology PN ---
Assessment/Plan Assessment/Plan 1. Exacerbation of congestive heart failure with ejection fraction of 30% in 05/2020 at [place]. Repeat echocardiogram showed EF still 20% Increased dobutamine to 3 Mcg as renal failure is getting worse again and off Lasix Hold off on Coreg, lisinopril, and Aldactone in view of hypotension as well as acute renal failure. 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 Will need prophylactic ICD 2. Troponin elevation, could be due to patient's renal failure with creatinine of 3.5. 3. Acute renal failure. Again, the creatinine was 1.2 on 06/06/2020 and on admission was 3.0, likely due to cardiorenal syndrome.Avoid ACEI and ARB Cr improved to 1.8 08/29 but up to 6.6 today despite Dobutamine at 3 mcg and off Lasix. 4. Hypotension. On dobutamine 5. Incomplete left bundle-branch block. 6. HIV. Patient is on anti-retroviral therapy including Prezcobix and Tivicay. 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 Subjective Subjective CHF exacerbation EF 30% in 05/2020 and now 20%. Also in ARF with CR 1.2 increased to 3.0 since May 2020 Dobutamine drip increased to 3 Mcg as renal fx getting worse again Objective Last 24 Hour Vital Signs Date Time Temp Pulse Resp B/P (MAP) Pulse Ox O2 Delivery O2 Flow Rate FiO2 09/01/20 04:00 89 09/01/20 04:00 97.0 90 20 94/57 (69) 96 09/01/20 00:00 89 09/01/20 00:00 97.5 85 18 94/55 (68) 99 08/31/20 21:00 Room Air 08/31/20 20:52 99/63 08/31/20 20:00 86 08/31/20 20:00 97.7 90 18 99/63 (75) 99 08/31/20 16:00 91 08/31/20 16:00 97.7 92 20 91/60 (70) 98 08/31/20 12:00 89 08/31/20 12:00 97.9 89 20 92/46 (61) 98 08/31/20 09:00 Room Air Intake and Output 08/31/20 09/01/20 19:00 07:00 Intake Total 236 ml Output Total 500 ml 550 ml Balance -264 ml -550 ml Intake Oral 236 ml Output Urine Total 500 ml 550 ml # Voids 4 Laboratory Tests Test 08/31/20 11:57 08/31/20 16:42 08/31/20 17:30 08/31/20 21:01 POC Whole Blood Glucose 243 MG/DL (74-106) H 249 MG/DL (74-106) H 221 MG/DL (74-106) H Sodium Level 132 MMOL/L (136-145) L Potassium Level 3.7 MMOL/L (3.5-5.1) Chloride Level 93 MMOL/L (98-107) L Carbon Dioxide Level 21 MMOL/L (21-32) Anion Gap 18 mmol/L (5-15) H Blood Urea Nitrogen 100 mg/dL (7-18) H Creatinine 6.0 MG/DL (0.55-1.30) H Estimat Glomerular Filtration Rate 9.1 mL/min (>60) Glucose Level 233 MG/DL (74-106) H Calcium Level 6.1 MG/DL (8.5-10.1) L Test 09/01/20 06:05 White Blood Count Pending Red Blood Count 3.35 M/UL (4.70-6.10) L Hemoglobin 9.2 G/DL (14.2-18.0) L Hematocrit 29.0 % (42.0-52.0) L Mean Corpuscular Volume 87 FL (80-99) Mean Corpuscular Hemoglobin 27.6 PG (27.0-31.0) Mean Corpuscular Hemoglobin Concent 31.9 G/DL (32.0-36.0) L Red Cell Distribution Width 21.1 % (11.6-14.8) H Platelet Count 157 K/UL (150-450) Mean Platelet Volume 8.2 FL (6.5-10.1) Neutrophils (%) (Auto) % (45.0-75.0) Lymphocytes (%) (Auto) % (20.0-45.0) Monocytes (%) (Auto) % (1.0-10.0) Eosinophils (%) (Auto) % (0.0-3.0) Basophils (%) (Auto) % (0.0-2.0) Neutrophils % (Manual) Pending Lymphocytes % (Manual) Pending Lymphocytes Pending Platelet Estimate Pending Platelet Morphology Pending Sodium Level 130 MMOL/L (136-145) L Potassium Level 3.6 MMOL/L (3.5-5.1) Chloride Level 92 MMOL/L (98-107) L Carbon Dioxide Level 18 MMOL/L (21-32) L Anion Gap 20 mmol/L (5-15) H Blood Urea Nitrogen 105 mg/dL (7-18) H Creatinine 6.6 MG/DL (0.55-1.30) H Estimat Glomerular Filtration Rate 8.2 mL/min (>60) Glucose Level 170 MG/DL (74-106) H Calcium Level 5.8 MG/DL (8.5-10.1) *L Phosphorus Level 8.6 MG/DL (2.5-4.9) H Magnesium Level 2.6 MG/DL (1.8-2.4) H Total Bilirubin 2.9 MG/DL (0.2-1.0) H Direct Bilirubin 2.2 MG/DL (0.0-0.3) H Aspartate Amino Transf (AST/SGOT) 6048 U/L (15-37) H Alanine Aminotransferase (ALT/SGPT) 5432 U/L (12-78) H Alkaline Phosphatase 162 U/L (46-116) H Total Protein 6.5 G/DL (6.4-8.2) Albumin 3.2 G/DL (3.4-5.0) L Globulin 3.3 g/dL Albumin/Globulin Ratio 1.0 (1.0-2.7) Percent CD3 Cells Pending Absolute CD3 Count Pending Percent CD4 Cells Pending Absolute CD4 Count Pending T-Lymphocyte CD4/CD8 Ratio Pending Percent CD8 Cells Pending Absolute CD8 Count Pending Hepatitis A IgM Antibody Pending Hepatitis B Surface Antigen Pending Hepatitis B Core IgM Antibody Pending Hepatitis C Antibody Pending HIV-1 RNA (PCR) log10 Value Pending HIV-1 RNA Ultraquantitative (PCR) Pending Microbiology Date/Time Source Procedure Growth Status 08/30/20 15:33 Sputum Induced Gram Stain - Final Resulted 08/30/20 15:33 Sputum Induced Sputum Culture Pending Resulted 08/30/20 08:45 Blood Blood Culture - Preliminary NO GROWTH AFTER 24 HOURS Resulted 08/30/20 08:40 Blood Blood Culture - Preliminary NO GROWTH AFTER 24 HOURS Resulted Objective HEAD AND NECK: Mild JVD. LUNGS: Coarse rhonchi. CARDIOVASCULAR: regular S1 and S2 with no gallop. ABDOMEN: Soft. EXTREMITIES: 2+ bilateral pitting edema. Grabiel Montoya MD Sep 01, 2020 08:42
--- NOTE | 2020-09-01 08:48 | General Progress Note ---
Subjective Constitutional: Denies: no symptoms, chills, diaphoresis, fever, malaise, weakness, other HEENT: Denies: no symptoms, eye pain, blurred vision, tearing, double vision, ear pain, ear discharge, nose pain, nose congestion, throat pain, throat swelling, mouth pain, mouth swelling, other Cardiovascular: Denies: no symptoms, chest pain, edema, irregular heart rate, lightheadedness, palpitations, syncope, other Respiratory: Denies: no symptoms, cough, orthopnea, shortness of breath, SOB with excertion, SOB at rest, sputum, stridor, wheezing, other Gastrointestinal/Abdominal: Denies: no symptoms, abdomen distended, abdominal pain, black stools, tarry stools, blood in stool, constipated, diarrhea, difficulty swallowing, nausea, poor appetite, poor fluid intake, rectal bleeding, vomiting, other Genitourinary: Denies: no symptoms, burning, discharge, frequency, flank pain, hematuria, incontinence, pain, urgency, other Neurologic/Psychiatric: Denies: no symptoms, anxiety, depressed, emotional problems, headache, numbness, paresthesia, pre-existing deficit, seizure, tingling, tremors, weakness, other Endocrine: Denies: no symptoms, excessive sweating, flushing, intolerance to cold, intolerance to heat, increased hunger, increased thirst, increased urine, unexplained weight gain, unexplained weight loss, other Hematologic/Lymphatic: Denies: no symptoms, anemia, easy bleeding, easy bruising, other Allergies: Coded Allergies: No Known Allergies (Unverified , 06/03/20) Subjective No acute events overnight. Patient resting comfortably sitting up in bed. Noted to have 600 mL of urine overnight per nurse. Bilateral lower extremity edema slightly worse this morning. Objective Last 24 Hour Vital Signs Date Time Temp Pulse Resp B/P (MAP) Pulse Ox O2 Delivery O2 Flow Rate FiO2 09/01/20 04:00 89 09/01/20 04:00 97.0 90 20 94/57 (69) 96 09/01/20 00:00 89 09/01/20 00:00 97.5 85 18 94/55 (68) 99 08/31/20 21:00 Room Air 08/31/20 20:52 99/63 08/31/20 20:00 86 08/31/20 20:00 97.7 90 18 99/63 (75) 99 08/31/20 16:00 91 08/31/20 16:00 97.7 92 20 91/60 (70) 98 08/31/20 12:00 89 08/31/20 12:00 97.9 89 20 92/46 (61) 98 08/31/20 09:00 Room Air Intake and Output 08/31/20 09/01/20 19:00 07:00 Intake Total 236 ml Output Total 500 ml 550 ml Balance -264 ml -550 ml Intake Oral 236 ml Output Urine Total 500 ml 550 ml # Voids 4 Laboratory Tests 08/31/20 11:57: POC Whole Blood Glucose 243H 08/31/20 16:42: POC Whole Blood Glucose 249H 08/31/20 17:30: Sodium Level 132L, Potassium Level 3.7, Chloride Level 93L, Carbon Dioxide Level 21, Anion Gap 18H, Blood Urea Nitrogen 100H, Creatinine 6.0H, Estimat Glomerular Filtration Rate 9.1, Glucose Level 233H, Calcium Level 6.1L 08/31/20 21:01: POC Whole Blood Glucose 221H 09/01/20 06:05: White Blood Count [Pending], Red Blood Count 3.35L, Hemoglobin 9.2L, Hematocrit 29.0L, Mean Corpuscular Volume 87, Mean Corpuscular Hemoglobin 27.6, Mean Corpuscular Hemoglobin Concent 31.9L, Red Cell Distribution Width 21.1H, Platelet Count 157, Mean Platelet Volume 8.2, Neutrophils (%) (Auto) , Lymphocytes (%) (Auto) , Monocytes (%) (Auto) , Eosinophils (%) (Auto) , Ba sophils (%) (Auto) , Neutrophils % (Manual) [Pending], Lymphocytes % (Manual) [Pending], Lymphocytes [Pending], Platelet Estimate [Pending], Platelet Morphology [Pending], Sodium Level 130L, Potassium Level 3.6, Chloride Level 92L , Carbon Dioxide Level 18L, Anion Gap 20H, Blood Urea Nitrogen 105H, Creatinine 6.6H, Estimat Glomerular Filtration Rate 8.2, Glucose Level 170H, Calcium Level 5.8*L, Phosphorus Level 8.6H, Magnesium Level 2.6H, Total Bilirubin 2.9H, Direct Bilirubin 2.2H, Aspartate Amino Transf (AST/SGOT) 6048H, Alanine Aminotransferase (ALT/SGPT) 5432H, Alkaline Phosphatase 162H, Total Protein 6.5, Albumin 3.2L, Globulin 3.3, Albumin/Globulin Ratio 1.0, Percent CD3 Cells [Pending], Absolute CD3 Count [Pending], Percent CD4 Cells [Pending], Absolute CD4 Count [Pending], T-Lymphocyte CD4/CD8 Ratio [Pending], Percent CD8 Cells [Pending], Absolute CD8 Count [Pending], Hepatitis A IgM Antibody [Pending], Hepatitis B Surface Antigen [Pending], Hepatitis B Core IgM Antibody [Pending], Hepatitis C Antibody [Pending], HIV-1 RNA (PCR) log10 Value [Pending], HIV-1 RNA Ultraquantitative (PCR) [Pending] Height (Feet): 5 Height (Inches): 5.00 Weight (Pounds): 152 General Appearance: no apparent distress, alert, alert oriented x3 EENT: PERRL/EOMI, normal ENT inspection Neck: non-tender, normal alignment Cardiovascular: normal rate, regular rhythm, no JVD Respiratory/Chest: lungs clear, normal breath sounds, respiratory distress Abdomen: non tender, soft, no organomegaly Genitourinary/Rectal: other - Armenta Extremities: normal range of motion, non-tender Edema: 2+ Leg (L), 2+ Leg (R) 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 # History of HIV on HHART # Hyperlipidemia # Normocytic anemia 2/2 LJ # Troponin elevation # HTN # Incomplete LBBB P: -Continue dopamine supplementation for hemodynamics per cardiology DC Lasix, no nephrotoxin drugs Renal function continues to worsen, however better urine output this morning at 600 mL per nurse, will place Armenta catheter for monitoring of urine output On bicarb drip per nephro Follow-up abdominal ultrasound, LFTs downtrending likely from shock liver 2 g of calcium IV replacement Echo showing diffuse global hypokinesia, EF 20- 25 %, RSVP 75 Hold beta-blockers and TONY/ARB/Arni until patient more euvolemic and AHSAN resolved Continue Zosyn and doxycycline per ID Leukocytosis stable - f/u BC, UCnegative so far Keep potassium > 4, magnesium > 2 Strict I's and O's Fluid restriction to 1500 mL/day Daily weights Continue HHART meds Continue iron supplementation - Cardiology consult Dr. Montoya, recs appreciated Nephrology consult Dr. Gupta, recs appreciated ID consult Dr. Mcnulty, recs appreciated Physical therapy CODE: Full Diet: cardiac DVT ppx: heparin subQ GI: Famotidine Dispo: Pending improvement of renal failure, stabilization of cardiac function Time spent on this encounter was 45 minutes which included 28 minutes of counseling and care coordination. I discussed with the nurse at bedside and nephrology, assessment rn. Time of note may not reflect time patient was seen. Luis Nelson D.O Sep 01, 2020 08:48
--- NOTE | 2020-09-01 08:49 | NUR ---
CASE MANAGEMENT:REVIEW 09/01/20 SI: AC/CHR CHF. NSTEMI. PNA.HIV 97.0 90 20 94/57 96% ON RA WBC+15.3 IS: DOBUTAMINE GTT 3MCG IV ZOSYN Q12 IV DOXYCYCLINE Q12 IV CA GLUCONATE Q1HRS X2 BAGS IVF NAHCO3 @ 50/HR HAART REGIMEN HEPARIN SQ Q12 : TELEMETRY STATUS DCP: FROM HOME PLAN: NOT READY FOR DISCHARGE D/T WBC'S, CR AND BLOOD PRESSURE
--- NOTE | 2020-09-01 10:07 | Nephrology Progress Note ---
Assessment/Plan Plan #AHSAN due to CRS1- now worsening in the setting of active diuresis- progressing to ATN #shock liver #acute on chronic decompensated CHF #h/o HFref #HTN #DM #HIV #Anemia - HOLD lasix - on dobutamine drip - plan for maharkur and HD today - monitor UOP- oligoanuric now - monitor PVRs - monitor K - echo noted - monitor UOP - monitor weights - monitor renal parameters - replete lytes -avoid nephrotoxins time spent 65min Subjective ROS Limited/Unobtainable: No Constitutional: Reports: weakness HEENT: Denies: no symptoms, eye pain, blurred vision, tearing, double vision, ear pain, ear discharge, nose pain, nose congestion, throat pain, throat swelling, mouth pain, mouth swelling, other Genitourinary: Denies: no symptoms, burning, discharge, frequency, flank pain, hematuria, incontinence, pain, urgency, other Neurologic/Psychiatric: Denies: no symptoms, anxiety, depressed, emotional problems, headache, numbness, paresthesia, pre-existing deficit, seizure, ting ling, tremors, weakness, other Subjective Cr worsnening LFTs upternding back on dobutamine drip oligonuric Objective Objective Last 24 Hour Vital Signs Date Time Temp Pulse Resp B/P (MAP) Pulse Ox O2 Delivery O2 Flow Rate FiO2 09/01/20 08:00 92 09/01/20 08:00 97.5 92 20 91/57 (68) 98 09/01/20 04:00 89 09/01/20 04:00 97.0 90 20 94/57 (69) 96 09/01/20 00:00 89 09/01/20 00:00 97.5 85 18 94/55 (68) 99 08/31/20 21:00 Room Air 08/31/20 20:52 99/63 08/31/20 20:00 86 08/31/20 20:00 97.7 90 18 99/63 (75) 99 08/31/20 16:00 91 08/31/20 16:00 97.7 92 20 91/60 (70) 98 08/31/20 12:00 89 08/31/20 12:00 97.9 89 20 92/46 (61) 98 Intake and Output 11/22/20 11/23/20 19:00 07:00 Intake Total 236 ml Output Total 500 ml 550 ml Balance -264 ml -550 ml Intake Oral 236 ml Output Urine Total 500 ml 550 ml # Voids 4 Laboratory Tests 08/31/20 11:57: POC Whole Blood Glucose 243H 08/31/20 16:42: POC Whole Blood Glucose 249H 08/31/20 17:30: Sodium Level 132L, Potassium Level 3.7, Chloride Level 93L, Carbon Dioxide Level 21, Anion Gap 18H, Blood Urea Nitrogen 100H, Creatinine 6.0H, Estimat Glomerular Filtration Rate 9.1, Glucose Level 233H, Calcium Level 6.1L 08/31/20 21:01: POC Whole Blood Glucose 221H 09/01/20 06:05: White Blood Count [Pending], Red Blood Count 3.35L, Hemoglobin 9.2L, Hematocrit 29.0L, Mean Corpuscular Volume 87, Mean Corpuscular Hemoglobin 27.6, Mean Corpuscular Hemoglobin Concent 31.9L, Red Cell Distribution Width 21.1H, Platelet Count 157, Mean Platelet Volume 8.2, Neutrophils (%) (Auto) , Lymphocytes (%) (Auto) , Monocytes (%) (Auto) , Eosinophils (%) (Auto) , Basophils (%) (Auto) , Differential Total Cells Counted 100, Neutrophils % (Manual) 90H, Lymphocytes % (Manual) 4L, Monocytes % (Manual) 6, Eosinophils % (Manual) 0, Basophils % (Manual) 0, Band Neutrophils 0, Lymphocytes [Pending], Platelet Estimate Adequate, Platelet Morphology Normal, Polychromasia 1+, Hyp ochromasia 1+, Anisocytosis 2+, Ovalocytes Rare, Sodium Level 130L, Potassium Level 3.6, Chloride Level 92L, Carbon Dioxide Level 18L, Anion Gap 20H, Blood Urea Nitrogen 105H, Creatinine 6.6H, Estimat Glomerular Filtration Rate 8.2, Glucose Level 170H, Calcium Level 5.8*L, Phosphorus Level 8.6H, Magnesium Level 2.6H, Total Bilirubin 2.9H, Direct Bilirubin 2.2H, Aspartate Amino Transf (AST/SGOT) 6048H, Alanine Aminotransferase (ALT/SGPT) 5432H, Alkaline Phosph atase 162H, Total Protein 6.5, Albumin 3.2L, Globulin 3.3, Albumin/Globulin Ratio 1.0, Percent CD3 Cells [Pending], Absolute CD3 Count [Pending], Percent CD4 Cells [Pending], Absolute CD4 Count [Pending], T-Lymphocyte CD4/CD8 Ratio [Pending], Percent CD8 Cells [Pending], Absolute CD8 Count [Pending], Hepatitis A IgM Antibody [Pending], Hepatitis B Surface Antigen [Pending], Hepatitis B Core IgM Antibody [Pending], Hepatitis C Antibody [Pending], HIV-1 RNA (PCR) log10 Value [Pending], HIV-1 RNA Ultraquantitative (PCR) [Pending] Height (Feet): 5 Height (Inches): 5.00 Weight (Pounds): 152 Brady Gupta M.D. Sep 01, 2020 10:07
--- NOTE | 2020-09-01 10:09 | Consultation ---
Consult Note Consult Note HISTORY OF PRESENT ILLNESS: Patient is a 80-year-old gentleman with history of hypertension and diabetes and hyperlipidemia as well as history of congestive heart failure with ejection fraction of 30 to 35% based on echocardiogram in May of 2020 at [facility]. Patient has history of HIV and AIDS. Patient presented to emergency room with increasing shortness of breath and lower extremity edema, also had substernal chest discomfort that is worse with exertion. Patient denies any fever or chills, or nausea or vomiting, or diaphoresis. He is planned to undergo HD per toilet attendant. I have been asked to consult for ICU support. REVIEW OF SYSTEMS: Negative other than what was mentioned in the history of present illness. PAST MEDICAL HISTORY: As mentioned above. FAMILY HISTORY: Noncontributory. SOCIAL HISTORY: He lives at home. Does not smoke or drink alcohol. PHYSICAL EXAMINATION: VITAL SIGNS: Show blood pressure of 88/55, pulse is 66, respirations 18, temperature 97.3. HEAD AND NECK: Shows mild JVD. LUNGS: Coarse rhonchi. CARDIOVASCULAR: Shows regular S1 and S2 with no gallop. ABDOMEN: Soft. EXTREMITIES: 2+ bilateral pitting edema. LABORATORY AND DIAGNOSTIC DATA: His labs show white count of 9.9, hemoglobin of 10.1, hematocrit 32.2, platelet count 241. Sodium is 135, potassium 4.3, BUN of 51, creatinine of 3.0, glucose of 114. His BNP is 21,000, which is 3 times higher than previous BNP in May of 2020. Troponin is 0.129. ASSESSMENT AND PLAN: 1. Exacerbation of congestive heart failure with ejection fraction of 30%. Continue dobutamine as well as Lasix drip. 2. Troponin elevation, could be due to patient's renal failure with creatinine of 3.5. 3. Acute renal failure. Hor HD. 4. Hypertension. 5. Incomplete left bundle-branch block. 6. HIV. Patient is on anti-retroviral therapy including Prezcobix and Tivicay. Thank you very much for allowing me to participate in the care of this patient. Please do not hesitate to contact me for any questions regarding my evaluation. Eric Martinez Omar Syed MD Sep 01, 2020 10:08
--- NOTE | 2020-09-01 11:54 | NUR ---
RADIOLOGY DEPT., CHEST X-RAY DONE.-P.DYE
[2020-09-01] MEDS: Renvela 800mg Pkt ORAL SCH ×3 (13:00→18:15)
[2020-09-01] MEDS ORDERED: Heparin1,000 units/500ml Premix(Conc:2 units/ml) INJ PRN (13:15)
[2020-09-01] MEDS ORDERED: Lidocaine 1% Plain 30 ml INJ PRN (13:15)
--- NOTE | 2020-09-01 14:08 | Infectious Diseases Prog Note ---
Assessment/Plan Assessment/Plan A) 1) pneumonia, ? uti, sepsis, leukocytosis, bowen 2) pmh noted 3) allergies - nkda P) 1) zosyn and doxycycline - avoid nephrotoxic abx, icu care now 2) f/u onj cultures, labs and chest x-ray, sputum culture pending 3) monitor labs 4) will f/u Subjective Constitutional: Denies: fever HEENT: Reports: congestion Respiratory: Reports: shortness of breath Cardiovascular: Denies: chest pain Allergies: Coded Allergies: No Known Allergies (Unverified , 06/03/20) Objective Last 24 Hour Vital Signs Date Time Temp Pulse Resp B/P (MAP) Pulse Ox O2 Delivery O2 Flow Rate FiO2 09/01/20 13:30 2.0 09/01/20 12:57 4.0 09/01/20 12:00 92 09/01/20 12:00 97.1 94 20 88/58 (68) 97 09/01/20 09:00 Room Air 09/01/20 08:00 92 09/01/20 08:00 97.5 92 20 91/57 (68) 98 09/01/20 04:00 89 09/01/20 04:00 97.0 90 20 94/57 (69) 96 09/01/20 00:00 89 09/01/20 00:00 97.5 85 18 94/55 (68) 99 08/31/20 21:00 Room Air 08/31/20 20:52 99/63 08/31/20 20:00 86 08/31/20 20:00 97.7 90 18 99/63 (75) 99 08/31/20 16:00 91 08/31/20 16:00 97.7 92 20 91/60 (70) 98 Height (Feet): 5 Height (Inches): 5.00 Weight (Pounds): 152 General Appearance: no acute distress HEENT: normocephalic, atraumatic, anicteric Respiratory/Chest: crackles/rales, rhonchi - bilaterally Cardiovascular: normal rate, regular rhythm Abdomen: normal bowel sounds, soft, non tender, no organomegaly Microbiology Date/Time Source Procedure Growth Status 08/30/20 15:33 Sputum Induced Gram Stain - Final Complete 08/30/20 15:33 Sputum Induced Sputum Culture - Final NORMAL UPPER RESPIRATORY RUFINO PRESENT Complete 08/30/20 08:45 Blood Blood Culture - Preliminary NO GROWTH AFTER 24 HOURS Resulted 08/30/20 08:40 Blood Blood Culture - Preliminary NO GROWTH AFTER 24 HOURS Resulted Laboratory Tests Test 08/31/20 16:42 08/31/20 17:30 08/31/20 21:01 09/01/20 06:05 POC Whole Blood Glucose 249 MG/DL (74-106) H 221 MG/DL (74-106) H Sodium Level 132 MMOL/L (136-145) L 130 MMOL/L (136-145) L Potassium Level 3.7 MMOL/L (3.5-5.1) 3.6 MMOL/L (3.5-5.1) Chloride Level 93 MMOL/L (98-107) L 92 MMOL/L (98-107) L Carbon Dioxide Level 21 MMOL/L (21-32) 18 MMOL/L (21-32) L Anion Gap 18 mmol/L (5-15) H 20 mmol/L (5-15) H Blood Urea Nitrogen 100 mg/dL (7-18) H 105 mg/dL (7-18) H Creatinine 6.0 MG/DL (0.55-1.30) H 6.6 MG/DL (0.55-1.30) H Estimat Glomerular Filtration Rate 9.1 mL/min (>60) 8.2 mL/min (>60) Glucose Level 233 MG/DL (74-106) H 170 MG/DL (74-106) H Calcium Level 6.1 MG/DL (8.5-10.1) L 5.8 MG/DL (8.5-10.1) *L White Blood Count Pending Red Blood Count 3.35 M/UL (4.70-6.10) L Hemoglobin 9.2 G/DL (14.2-18.0) L Hematocrit 29.0 % (42.0-52.0) L Mean Corpuscular Volume 87 FL (80-99) Mean Corpuscular Hemoglobin 27.6 PG (27.0-31.0) Mean Corpuscular Hemoglobin Concent 31.9 G/DL (32.0-36.0) L Red Cell Distribution Width 21.1 % (11.6-14.8) H Platelet Count 157 K/UL (150-450) Mean Platelet Volume 8.2 FL (6.5-10.1) Neutrophils (%) (Auto) % (45.0-75.0) Lymphocytes (%) (Auto) % (20.0-45.0) Monocytes (%) (Auto) % (1.0-10.0) Eosinophils (%) (Auto) % (0.0-3.0) Basophils (%) (Auto) % (0.0-2.0) Differential Total Cells Counted 100 Neutrophils % (Manual) 90 % (45-75) H Lymphocytes % (Manual) 4 % (20-45) L Monocytes % (Manual) 6 % (1-10) Eosinophils % (Manual) 0 % (0-3) Basophils % (Manual) 0 % (0-2) Band Neutrophils 0 % (0-8) Lymphocytes Pending Platelet Estimate Adequate Platelet Morphology Normal Polychromasia 1+ Hypochromasia 1+ Anisocytosis 2+ Ovalocytes Rare Phosphorus Level 8.6 MG/DL (2.5-4.9) H Magnesium Level 2.6 MG/DL (1.8-2.4) H Total Bilirubin 2.9 MG/DL (0.2-1.0) H Direct Bilirubin 2.2 MG/DL (0.0-0.3) H Aspartate Amino Transf (AST/SGOT) 6048 U/L (15-37) H Alanine Aminotransferase (ALT/SGPT) 5432 U/L (12-78) H Alkaline Phosphatase 162 U/L (46-116) H Total Protein 6.5 G/DL (6.4-8.2) Albumin 3.2 G/DL (3.4-5.0) L Globulin 3.3 g/dL Albumin/Globulin Ratio 1.0 (1.0-2.7) Percent CD3 Cells Pending Absolute CD3 Count Pending Percent CD4 Cells Pending Absolute CD4 Count Pending T-Lymphocyte CD4/CD8 Ratio Pending Percent CD8 Cells Pending Absolute CD8 Count Pending Hepatitis A IgM Antibody Pending Hepatitis B Surface Antigen Pending Hepatitis B Core IgM Antibody Pending Hepatitis C Antibody Pending HIV-1 RNA (PCR) log10 Value Pending HIV-1 RNA Ultraquantitative (PCR) Pending Current Medications Medications (Trade) Dose Ordered Sig/[place] Route PRN Reason Start Time Stop Time Status Last Admin Dose Admin Acetaminophen (Tylenol) 650 mg Q4H PRN ORAL Mild Pain (Pain Scale 1-3) 08/25/20 18:15 09/24/20 18:14 Atorvastatin Calcium (Lipitor) 20 mg BEDTIME ORAL 08/26/20 21:00 11/24/20 20:59 08/31/20 20:49 Chlorhexidine Gluconate (Antonette-Hex 2%) 1 applic DAILY@2000 TOPIC 08/28/20 20:00 11/26/20 19:59 08/31/20 20:52 Dextrose (Dextrose 50%) 25 ml Q30M PRN IV Hypoglycemia 08/25/20 18:15 11/23/20 18:14 Dextrose (Dextrose 50%) 50 ml Q30M PRN IV Hypoglycemia 08/25/20 18:15 11/23/20 18:14 Dobutamine HCl 250 ml @ 12.41 mls/ hr Q24H IV 08/30/20 21:00 09/02/20 20:57 08/31/20 20:52 Doxycycline Hyclate 100 mg/ Dextrose 100 ml @ 100 mls/hr Q12HR IV 09/01/20 09:00 09/08/20 08:59 09/01/20 09:10 Famotidine (Pepcid) 40 mg DAILY ORAL 08/26/20 09:00 11/24/20 08:59 09/01/20 08:23 Ferrous Gluconate (Fergon) 324 mg EVERY OTHER DAY ORAL 08/30/20 12:00 11/28/20 11:59 09/01/20 08:24 Heparin Sodium (Porcine) (Heparin 5000 units/ml) 5,000 units EVERY 12 HOURS SUBQ 08/26/20 09:00 10/10/20 08:59 09/01/20 08:25 Heparin Sodium/ Sodium Chloride (Heparin 1000 units/500ml Premix) 1,000 unit ONCE PRN INJ RADIOLOGY 09/01/20 13:15 09/01/20 23:59 Insulin Aspart (NovoLOG) BEFORE MEALS AND HS SUBQ 08/25/20 21:00 11/23/20 20:59 09/01/20 11:53 Lidocaine HCl (Xylocaine 1% 30ml) 30 ml ONCE PRN INJ RADIOLOGY 09/01/20 13:15 09/01/20 23:59 Ondansetron HCl (Zofran) 4 mg Q6H PRN IVP Nausea & Vomiting 08/31/20 14:00 09/30/20 13:59 08/31/20 14:16 Patient Own Medication (Patient's Own Med) 1 ea DAILY ORAL 08/27/20 09:00 09/26/20 08:59 09/01/20 08:23 Patient Own Medication (Patient's Own Med) 1 ea DAILY ORAL 08/27/20 09:00 09/26/20 08:59 09/01/20 08:23 Piperacillin Sod/ Tazobactam Sod 2.25 gm/Dextrose 55 ml @ 110 mls/hr Q8HR IV 09/01/20 22:00 09/06/20 21:59 Piperacillin Sod/ Tazobactam Sod 3.375 gm/Dextrose 100 ml @ 25 mls/hr EVERY 12 HOURS IVPB 09/01/20 09:00 09/01/20 14:30 09/01/20 10:52 Sevelamer Carbonate (Renvela) 1,600 mg THREE TIMES A DAY ORAL 09/01/20 13:00 11/30/20 12:59 Herve Holden MD Sep 01, 2020 14:08
--- NOTE | 2020-09-01 14:49 | Pre-Procedure Note/Attestation ---
Pre-Procedure Note/Attestation Complete Prior to Procedure Procedure Narrative: chong catheter Indications for Procedure Pre-Operative Diagnosis: renal failure Attestation I attest that I discussed the nature of the procedure; its benefits; risks and complications; and alternatives (and the risks and benefits of such alternatives), prior to the procedure, with the patient (or the patient's legal senior customer service representative). I attest that, if there was a reasonable possibility of needing a blood transfusion, the patient (or the patient's legal senior customer service representative) was given the [facility] standardized written summary, pursuant to the [place] Blood Safety Act ([place] Health and Safety Code # 1645, as amended). I attest that I re-evaluated the patient just prior to the surgery and that there has been no change in the patient's H&P, except as documented below: Steven Harmon MD Sep 01, 2020 14:49
--- NOTE | 2020-09-01 14:51 | Pre-Procedure Note/Attestation ---
Pre-Procedure Note/Attestation Indications for Procedure Pre-Operative Diagnosis: renal failure Attestation I attest that I discussed the nature of the procedure; its benefits; risks and complications; and alternatives (and the risks and benefits of such alternatives), prior to the procedure, with the patient (or the patient's legal outside sales representative insurance). I attest that, if there was a reasonable possibility of needing a blood transfusion, the patient (or the patient's legal outside sales representative insurance) was given the [facility] standardized written summary, pursuant to the [place] Blood Safety Act ([place] Health and Safety Code # 1645, as amended). I attest that I re-evaluated the patient just prior to the surgery and that there has been no change in the patient's H&P, except as documented below: Steven Harmon MD Sep 01, 2020 14:51
--- NOTE | 2020-09-01 15:15 | NUR ---
NURSE NOTES: NURSE NOTES: Report Given to Sophia Dsouza RN. Pt stable but complains of weakness and pain. Pt S/p non tunneled catheter insertion for dialysis. Medication taken with pt. Addendum: 09/01/20 at 1518 by Verena Victoria RN Also endorsed 2 packets of rnelva which I had removed from [employer] but not given because pt had been taken down for catheter.
--- NOTE | 2020-09-01 15:21 | Brief Operative Note ---
Immediate Post Operative Note Operative Note Pre-op Diagnosis: renal failure Post-op Diagnosis: same as pre-op Surgeon: delisa Anesthesia: regional, local Specimen: none Complications: none Fluids: none Implant(s) used?: No Steven Harmon MD Sep 01, 2020 15:21
--- NOTE | 2020-09-01 15:30 | NUR ---
NURSE NOTES: Dr. Nelson contacted and clarifying orders for calcium glucanate and sodium bicarb. Order received for repeat chem and to contact Alonso regarding bicarb.
--- NOTE | 2020-09-01 15:30 | NUR ---
NURSE NOTES: Patient received from Clarai RN. Patient AOx4 with complaints of generalized chronic pain throughout body. Patient appears weak with malaise though BL hand strength is 5/5. Breath sounds diminished BL. RR even and unlabored on 3L NC at 20 and sating 100%. SR on impregnating helper with cardiac sounds distant. BL Eyes Brisk at 2mm. Radial pulses bounding. Pedal pulses weak with pitting +3 edema. LT UA PICC line in place with dressing dry and intact. RT IJ Non-Tunneled catheter in place with dressing dry and intact. Armenta in place with dark mayo/brown urine. Last BM reported as yesterday by patient. Bowels sounds present. Side rails upx2 cll light within reach, bed low and locked, bed alarm on.
--- NOTE | 2020-09-01 15:38 | NUR ---
INSURANCE CLINICALS/REVIEW FAXED TO [facility] [phone] [facility] [phone]
--- NOTE | 2020-09-01 15:57 | Diagnostic Imaging Report ---
Indication: Abnormal liver function tests. Abnormal white blood cell count Technique: Pittman-scale and duplex images of the upper abdomen were obtained Comparison: No comparison abdominal sonograms. Reference made to renal sonogram dated 08/26/2020 Findings: Gallbladder demonstrates no gallstones. No wall thickening nor pericholecystic fluid Sonographic Morales's sign is negative. Common bile duct measures 3 mm in diameter. No intrahepatic biliary ductal dilatation. Liver demonstrates diffusely increased echogenicity, consistent with diffuse hepatocellular disease, most likely fatty change. Portal vein and hepatic veins are patent. Pancreas is unremarkable. Spleen is unremarkable. Left kidney measures 11.4 cm in length. Right kidney measures 12.1 cm length. Both kidneys demonstrate normal echogenicity. Left kidney demonstrates a lower pole cyst No focal abnormality . Non-aneurysmal abdominal aorta . Trace free intraperitoneal fluid is demonstrated. 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 Trace ascites Bilateral pleural effusions Negative for gallstones or dilated bile ducts Incidental finding left lower pole renal cyst, previously reported to be a complex cyst
[2020-09-01] MEDS ORDERED: Sodium Bicarbonate 50 ML in 1/2 NS 1000ml 1,000 ML IV SCH (16:00)
--- NOTE | 2020-09-01 16:00 | NUR ---
NURSE NOTES: Per Dr. uGpta d/ch francia.
--- NOTE | 2020-09-01 16:45 | Diagnostic Imaging Report ---
Indication: Cough Technique: One view of the chest Comparison: none Findings: Right pleural effusion has increased since the prior exam. Interstitial congestion bilaterally is increased. The heart is enlarged. The left pleural space is clear. Impression: Increased right pleural effusion. Slightly increased bilateral interstitial edema
[2020-09-01 17:06] LABS: ALBUMIN 3.1 G/DL (3.4-5.0); ALBUMIN/GLOBULIN RATIO 0.9 (1.0-2.7); BILIRUBIN,TOTAL 3.1 MG/DL (0.2-1.0); CALCIUM 6.1 MG/DL (8.5-10.1); POTASSIUM 3.6 MMOL/L (3.5-5.1)
[2020-09-01 17:28] LABS: BILIRUBIN,DIRECT 2.3 MG/DL (0.0-0.3)
--- NOTE | 2020-09-01 18:05 | NUR ---
NURSE NOTES: Reported new level of calcium 6.1. Order received for 2gms. Dialysis to start now. Also reported that patient is stating he wants to because he is only suffering. Per. Dr. Nelson, he will consult psych.
--- NOTE | 2020-09-01 18:09 | Diagnostic Imaging Report ---
Indication:Needs dialysis access Technique: Procedural timeout performed. Informed consent obtained prior to commencement of the procedure.. Ultrasound confirms patent compressible right internal jugular vein. Total sterile technique, including sterile probe cover and sterile gel, sterile gloves, hand hygiene, hat, mask, sterile gown, large sterile drape, and preparation with 2% chlorhexidine utilized.Local anesthesia with 1% lidocaine. Under real-time ultrasound guidance with real-time visualization of the needle entering the vein, puncture right internal jugular vein using lumen gauge needle, passage 0.018 guidewire, insertion 4 Malay introducer, passage 0.035 guidewire, over which was passed serial dilators and then a 15 cm long triple-lumen temporary dialysis catheter, under fluoroscopic supervision. Completion stored digital radiograph obtained, demonstrating catheter tip position at the mid superior vena cava The patient tolerated the procedure well, without immediate complication. Fluoroscopy time 43.4 seconds Dose Area Product [id number] Impression: Successful placement of right jugular temporary dialysis catheter, as described.
[2020-09-01] MEDS: DOBUTamine 250mg/250ml Premix IV SCH (18:32)
--- NOTE | 2020-09-01 19:30 | NUR ---
NURSE NOTES: SBAR from Shamika Dsouza. Patient is AAOX4, able to make needs known. Currently receiving HD at this time. Patient is on NC at 4L. SpO2 is 100%, HR is 90-102 Afib rhythm. Patient is intermittent NSR and Afib. Armenta catheter noted, PICC line RONALD noted, R IJ non-tunneled HD catheter noted, 1 X PIV line right AC noted. Currently patient is on Dobutamine gtt at 3mcg/kg/min fixed rate, 2D echo noted to be 20-25%. Patient tolerating HD at this time, BP is 92/70, SpO2 is 95%. Safety measures checked, bed in lowest position, bed alarm engaged, will continue to monitor.
--- NOTE | 2020-09-01 19:37 | NUR ---
NURSE HAND-OFF REPORT: Latest Vital Signs: Temperature 97.5 , Pulse 100 , B/P 101 /61 , Respiratory Rate 24 , O2 SAT 100 , Nasal Cannula, O2 Flow Rate 3.0 . Vital Sign Comment: STABLE EKG Rhythm: 1st Degree HB Rhythm change?: N MD Notified?: MD Response: Latest Davis Fall Score: 45 Fall Risk: High Risk Safety Measures: Call light Within Reach, Bed Alarm Zone 1, Side Rails Side Rails x2, Bed position Low and Locked. Fall Precautions: Yellow Socks Yellow Gown Patient Fall Education Report given to Shawn Florian Plan of care endorsed. Patient being dialyzed now. Endorsed second bag of calcium. Dobutamine bag changed.
[2020-09-01] MEDS: Dyna-Hex 2% Top Sol 2oz TOPIC SCH (19:44)
--- NOTE | 2020-09-01 20:30 | NUR ---
NURSE NOTES: Patient finished dialysis, HD nurse discontinued dialysis about 30mins before finishing because he was becoming more hypotensive despite being given NS bolus. 1000ml removed during dialysis. Patient however is doing better now and BP are improving.
[2020-09-01] MEDS: Zosyn 2.25 gm in D5W 55ml IV SCH (20:52)
[2020-09-01] MEDS: Atorvastatin 20mg tab ORAL SCH (21:00)
--- NOTE | 2020-09-01 22:00 | NUR ---
NURSE NOTES: Patients vitals are doing well, denies SOB or chest pain. NSR ont he monitor with NC at 2L with SpO2 at 100%, patient respiratory pattern are normal; s/p HD, continues to do well. Patient remains AAOX4, NAD at this time. Patient taking in fluids with fluid restriction being observed.
[2020-09-02] VITALS (37 sets, daily range): BP systolic 48–175; BP diastolic 17–143
--- NOTE | 2020-09-02 | NUR ---
NURSE NOTES: Patient remains stable at this time, NAD, denies SOB or chest pain, SpO2 at 100% while on 2L NC. HR is 89 NSR, pulses present, maintains AAOX4.
--- NOTE | 2020-09-02 02:00 | NUR ---
NURSE NOTES: Patient resting in bed, vitals remains stable, afebrile. no acute distress, denies SOB and chest pain. No acute events. Patient sleeping but easily awakens and maintains AAOX4.
--- NOTE | 2020-09-02 04:00 | NUR ---
NURSE NOTES: Patient given bed bath and provided oral care, maintains AAOX4, remains on NC at 2L, denies SOB, labs drawn. Patient resting in bed. denies any pain at this time.
[2020-09-02 05:50] LABS: HEMATOCRIT 31.7 % (42.0-52.0); HEMOGLOBIN 9.9 G/DL (14.2-18.0); MEAN CORPUSCULAR VOLUME 88 FL (80-99); PLATELET COUNT 156 K/UL (150-450); RED CELL DISTRIBUTION WIDTH 22.1 % (11.6-14.8); WHITE BLOOD COUNT 10.8 K/UL (4.8-10.8)
[2020-09-02] MEDS: Zosyn 2.25 gm in D5W 55ml IV SCH ×2 (06:00→14:00)
[2020-09-02 06:16] LABS: ALBUMIN 3.1 G/DL (3.4-5.0); ALBUMIN/GLOBULIN RATIO 0.9 (1.0-2.7); BILIRUBIN,TOTAL 3.5 MG/DL (0.2-1.0); CALCIUM 8.2 MG/DL (8.5-10.1); CREATININE 5.7 MG/DL (0.55-1.30); POTASSIUM 4.2 MMOL/L (3.5-5.1)
[2020-09-02 06:31] LABS: BILIRUBIN,DIRECT 0.3 MG/DL (0.0-0.3)
--- NOTE | 2020-09-02 06:40 | NUR ---
NURSE NOTES: Patient assessed and remains AAOX4. Patient complaining of generalized pain all over body. Patient does not want to take Tylenol when offered and prefers a hot beverage instead. Patient placed on chair, tolerates well in chair. Vitasl stable, will continue to monitor.
--- NOTE | 2020-09-02 06:43 | General Progress Note ---
Subjective ROS Limited/Unobtainable: No Allergies: Coded Allergies: No Known Allergies (Unverified , 06/03/20) Objective Last 24 Hour Vital Signs Date Time Temp Pulse Resp B/P (MAP) Pulse Ox O2 Delivery O2 Flow Rate FiO2 09/02/20 06:30 94 26 87/53 (64) 100 09/02/20 06:00 95 24 84/57 (66) 100 09/02/20 05:30 94 20 80/47 (58) 100 09/02/20 05:00 95 21 175/143 (154) 100 09/02/20 04:30 95 26 88/61 (70) 100 09/02/20 04:00 94 09/02/20 04:00 98.5 95 21 90/60 (70) 100 09/02/20 04:00 Nasal Cannula 2.0 09/02/20 03:00 94 20 92/62 (72) 100 09/02/20 02:30 96 25 88/62 (71) 100 09/02/20 02:00 94 21 88/69 (75) 09/02/20 01:30 96 24 85/59 (68) 100 09/02/20 01:00 96 20 116/88 (97) 100 09/02/20 00:30 98 22 111/79 (90) 100 09/02/20 00:00 85 09/02/20 00:00 Nasal Cannula 2.0 09/02/20 00:00 98.9 98 25 93/55 (68) 09/01/20 23:30 102 24 97/60 (72) 09/01/20 23:27 103 28 97/74 (82) 98 09/01/20 23:00 101 29 86/42 (57) 100 09/01/20 22:30 99 27 100/70 (80) 100 09/01/20 22:00 103 27 97/66 (76) 100 09/01/20 21:30 100 23 94/47 (63) 09/01/20 21:00 100 23 94/47 (63) 09/01/20 20:30 108 27 96/70 (79) 99 09/01/20 20:00 87 09/01/20 20:00 98.6 106 24 92/70 (77) 100 09/01/20 20:00 Nasal Cannula 4.0 09/01/20 19:30 103 23 110/68 (82) 100 09/01/20 19:00 100 24 101/61 (74) 100 09/01/20 18:32 100/68 09/01/20 18:28 92 17 95/60 (72) 99 09/01/20 18:00 89 24 104/59 (74) 100 09/01/20 17:00 92 17 95/60 (72) 99 09/01/20 16:00 91 17 105/56 (72) 100 09/01/20 16:00 90 09/01/20 15:30 Nasal Cannula 3.0 09/01/20 15:00 97.5 91 20 98/68 (78) 100 09/01/20 13:30 2.0 09/01/20 12:57 4.0 09/01/20 12:00 92 09/01/20 12:00 97.1 94 20 88/58 (68) 97 09/01/20 09:00 Room Air 09/01/20 08:00 92 09/01/20 08:00 97.5 92 20 91/57 (68) 98 Intake and Output 09/01/20 09/02/20 19:00 07:00 Intake Total 168.435 ml 779.10 ml Output Total 150 ml 2565 ml Balance 18.435 ml -1785.90 ml Intake Oral 100 ml 500 ml IV Total 68.435 ml 279.10 ml Output Urine Total 150 ml 565 ml Hemodialysis UF 2000 ml Laboratory Tests 09/01/20 16:15: Sodium Level 128L, Potassium Level 3.6, Chloride Level 89L, Carbon Dioxide Level 18L, Anion Gap 21H, Blood Urea Nitrogen 114H, Creatinine 7.0H, Estimat Glomerular Filtration Rate 7.7, Glucose Level 238H, Calcium Level 6.1L, Total Bilirubin 3.1H, Direct Bilirubin 2.3H, Aspartate Amino Transf (AST/SGOT) 4602H, Alanine Aminotransferase (ALT/SGPT) 5079H, Alkaline Phosphatase 161H, Total Protein 6.5, Albumin 3.1L, Globulin 3.4, Albumin/Globulin Ratio 0.9L 09/01/20 17:52: POC Whole Blood Glucose 219H 09/02/20 04:00: Sodium Level 130L, Potassium Level 4.2, Chloride Level 92L, Carbon Dioxide Level 19L, Anion Gap 19H, Blood Urea Nitrogen 78H, Creatinine 5.7H, Estimat Glomerular Filtration Rate 9.7, Glucose Level 193H, Calcium Level 8.2#L, Total Bilirubin 3.5H, Direct Bilirubin 0.3, Aspartate Amino Transf (AST/SGOT) 2297H, Alanine Aminotransferase (ALT/SGPT) 4244H, Alkaline Phosphatase 175H, Total Protein 6.7, Albumin 3.1L, Globulin 3.6, Albumin/Globulin Ratio 0.9L, White Blood Count 10.8, Red Blood Count 3.60L, Hemoglobin 9.9L, Hematocrit 31.7L, Mean Corpuscular Volume 88, Mean Corpuscular Hemoglobin 27.5, Mean Corpuscular Hemoglobin Concent 31.2L, Red Cell Distribution Width 22.1H, Platelet Count 156, Mean Platelet Volume 8.3, Neutrophils (%) (Auto) , Lymphocytes (%) (Auto) , Monocytes (%) (Auto) , Eosinophils (%) (Auto) , Basophils (%) (Auto) , Neutrophils % (Manual) [Pending], Lymphocytes % (Manual) [Pending], Platelet Estimate [Pending], Plate let Morphology [Pending], Magnesium Level 2.6H 09/02/20 06:11: POC Whole Blood Glucose [Pending] Height (Feet): 5 Height (Inches): 5.00 Weight (Pounds): 152 General Appearance: lethargic EENT: normal ENT inspection Neck: supple Cardiovascular: tachycardia Respiratory/Chest: decreased breath sounds Abdomen: hypoactive bowel sounds Extremities: non-tender Assessment/Plan Problem List: (1) NSTEMI (non-ST elevated myocardial infarction) ICD Codes: I21.4 - Non-ST elevation (NSTEMI) myocardial infarction SNOMED: 07296259 (2) Anemia ICD Codes: D64.9 - Anemia, unspecified SNOMED: 828732055 (3) CHF (congestive heart failure) ICD Codes: I50.9 - Heart failure, unspecified SNOMED: 03741093 (4) Pleural effusion ICD Codes: J90 - Pleural effusion, not elsewhere classified SNOMED: 37793010 (5) Acute on chronic systolic (congestive) heart failure ICD Codes: I50.23 - Acute on chronic systolic (congestive) heart failure SNOMED: 502429249, [id number] Assessment/Plan: shock liver anemia DM HIV fu LFTS>>> improving fu hepatitis panel abd us if needed fu cardiology recs transferred to icu for urgent HD Camron Roman MD Sep 02, 2020 06:43
[2020-09-02] MEDS: NovoLOG Insulin Flexpen SUBQ SCH ×2 (06:49→11:52)
--- NOTE | 2020-09-02 07:00 | Hematology/Onc Progress Note ---
Assessment/Plan Assessment/Plan Assessment and Recs # Anemia of iron deficiency, unspecified rule out gi bleed --> obtain a anemia panel, has been ordered--> reviewed --> po iron has been started --> hgb goal is >7, transfuse as needed --> trend CBC daily to make sure no major acute drop --> no evidence of hemolysis noted --> hgb 10->9.9 # Leukocytosis/elevated white blood cell count, unspecified likely related to infection/PNA --> have reviewed peripheral smear and bandemia/neutrophilia noted --> ABX vanc/cefepime-->zosyn/doxy --> monitor for resolution --> wbc 17-->10.8 # AHSAN due to CRS1 --> as per renal # Acute on chronic decompensated CHF --> cards aware, diuresing # HTN # DM # HIV # Dvt ppx heparin sq The timing of this note does not necessarily reflect the time of the patient was seen. Greatly appreciate consultation. Subjective Constitutional: Denies: no symptoms, chills, fever, malaise, weakness, other HEENT: Denies: no symptoms, eye pain, blurred vision, tearing, double vision, ear pain, ear discharge, nose pain, nose congestion, throat pain, throat swelling, mouth pain, mouth swelling, other Cardiovascular: Denies: no symptoms, chest pain, edema, irregular heart rate, lightheadedness, palpitations, syncope, other Respiratory: Denies: no symptoms, cough, shortness of breath, SOB with excertion, SOB at rest, sputum, wheezing, other Gastrointestinal/Abdominal: Denies: no symptoms, abdomen distended, abdominal pain, black stools, tarry stools, blood in stool, constipated, diarrhea, difficulty swallowing, nausea, poor appetite, poor fluid intake, rectal bleeding, vomiting, other Genitourinary: Denies: no symptoms, burning, discharge, frequency, flank pain, hematuria, incontinence, pain, urgency, other Endocrine: Denies: no symptoms, excessive sweating, flushing, intolerance to cold, intolerance to heat, increased hunger, increased thirst, increased urine, unexplained weight gain, unexplained weight loss, other Hematologic/Lymphatic: Denies: no symptoms, anemia, easy bleeding, easy bruising, adenopathy, other Allergies: Coded Allergies: No Known Allergies (Unverified , 06/03/20) Subjective 09/01 is on zosyn and doxy, urine reviewed, elvin, zacarias Rn, labs pending 09/02 is now in icu, for potential urgent hd, seen by with Rn Objective Objective Current Medications Medications (Trade) Dose Ordered Sig/[place] Route PRN Reason Start Time Stop Time Status Last Admin Dose Admin Acetaminophen (Tylenol) 650 mg Q4H PRN ORAL Mild Pain (Pain Scale 1-3) 08/25/20 18:15 09/24/20 18:14 Atorvastatin Calcium (Lipitor) 20 mg BEDTIME ORAL 08/26/20 21:00 11/24/20 20:59 09/01/20 21:00 Chlorhexidine Gluconate (Antonette-Hex 2%) 1 applic DAILY@1999 TOPIC 08/28/20 20:00 11/26/20 19:59 09/01/20 19:44 Dextrose (Dextrose 50%) 25 ml Q30M PRN IV Hypoglycemia 08/25/20 18:15 11/23/20 18:14 Dextrose (Dextrose 50%) 50 ml Q30M PRN IV Hypoglycemia 08/25/20 18:15 11/23/20 18:14 Dobutamine HCl 250 ml @ 12.41 mls/ hr Q24H IV 08/30/20 21:00 09/02/20 20:57 09/01/20 18:32 Doxycycline Hyclate 100 mg/ Dextrose 100 ml @ 100 mls/hr Q12HR IV 09/01/20 09:00 09/08/20 08:59 09/01/20 20:52 Famotidine (Pepcid) 40 mg DAILY ORAL 08/26/20 09:00 11/24/20 08:59 09/01/20 08:23 Ferrous Gluconate (Fergon) 324 mg EVERY OTHER DAY ORAL 08/30/20 12:00 11/28/20 11:59 09/01/20 08:24 Heparin Sodium (Porcine) (Heparin 5000 units/ml) 5,000 units EVERY 12 HOURS SUBQ 08/26/20 09:00 10/10/20 08:59 09/01/20 21:00 Insulin Aspart (NovoLOG) BEFORE MEALS AND HS SUBQ 08/25/20 21:00 11/23/20 20:59 09/02/20 06:49 Ondansetron HCl (Zofran) 4 mg Q6H PRN IVP Nausea & Vomiting 08/31/20 14:00 09/30/20 13:59 08/31/20 14:16 Patient Own Medication (Patient's Own Med) 1 ea DAILY ORAL 08/27/20 09:00 09/26/20 08:59 09/01/20 08:23 Patient Own Medication (Patient's Own Med) 1 ea DAILY ORAL 08/27/20 09:00 09/26/20 08:59 09/01/20 08:23 Piperacillin Sod/ Tazobactam Sod 2.25 gm/Dextrose 55 ml @ 110 mls/hr Q8HR IV 09/01/20 22:00 09/06/20 21:59 09/02/20 06:00 Sevelamer Carbonate (Renvela) 1,600 mg THREE TIMES A DAY ORAL 09/01/20 13:00 11/30/20 12:59 Last 24 Hour Vital Signs Date Time Temp Pulse Resp B/P (MAP) Pulse Ox O2 Delivery O2 Flow Rate FiO2 09/02/20 06:30 94 26 87/53 (64) 100 09/02/20 06:00 95 24 84/57 (66) 100 09/02/20 05:30 94 20 80/47 (58) 100 09/02/20 05:00 95 21 175/143 (154) 100 09/02/20 04:30 95 26 88/61 (70) 100 09/02/20 04:00 94 09/02/20 04:00 98.5 95 21 90/60 (70) 100 09/02/20 04:00 Nasal Cannula 2.0 09/02/20 03:00 94 20 92/62 (72) 100 09/02/20 02:30 96 25 88/62 (71) 100 09/02/20 02:00 94 21 88/69 (75) 09/02/20 01:30 96 24 85/59 (68) 100 09/02/20 01:00 96 20 116/88 (97) 100 09/02/20 00:30 98 22 111/79 (90) 100 09/02/20 00:00 85 09/02/20 00:00 Nasal Cannula 2.0 09/02/20 00:00 98.9 98 25 93/55 (68) 09/01/20 23:30 102 24 97/60 (72) 09/01/20 23:27 103 28 97/74 (82) 98 09/01/20 23:00 101 29 86/42 (57) 100 09/01/20 22:30 99 27 100/70 (80) 100 09/01/20 22:00 103 27 97/66 (76) 100 09/01/20 21:30 100 23 94/47 (63) 09/01/20 21:00 100 23 94/47 (63) 09/01/20 20:30 108 27 96/70 (79) 99 09/01/20 20:00 87 09/01/20 20:00 98.6 106 24 92/70 (77) 100 09/01/20 20:00 Nasal Cannula 4.0 09/01/20 19:30 103 23 110/68 (82) 100 09/01/20 19:00 100 24 101/61 (74) 100 09/01/20 18:32 100/68 09/01/20 18:28 92 17 95/60 (72) 99 09/01/20 18:00 89 24 104/59 (74) 100 09/01/20 17:00 92 17 95/60 (72) 99 09/01/20 16:00 91 17 105/56 (72) 100 09/01/20 16:00 90 09/01/20 15:30 Nasal Cannula 3.0 09/01/20 15:00 97.5 91 20 98/68 (78) 100 09/01/20 13:30 2.0 09/01/20 12:57 4.0 09/01/20 12:00 92 09/01/20 12:00 97.1 94 20 88/58 (68) 97 09/01/20 09:00 Room Air 09/01/20 08:00 92 09/01/20 08:00 97.5 92 20 91/57 (68) 98 09/01/20 04:00 89 09/01/20 04:00 97.0 90 20 94/57 (69) 96 09/01/20 00:00 89 09/01/20 00:00 97.5 85 18 94/55 (68) 99 08/31/20 21:00 Room Air 08/31/20 20:52 99/63 08/31/20 20:00 86 08/31/20 20:00 97.7 90 18 99/63 (75) 99 08/31/20 16:00 91 08/31/20 16:00 97.7 92 20 91/60 (70) 98 08/31/20 12:00 89 08/31/20 12:00 97.9 89 20 92/46 (61) 98 08/31/20 09:00 Room Air 08/31/20 08:00 97.9 91 20 97/64 (75) 96 08/31/20 08:00 93 Intake and Output 09/01/20 09/02/20 19:00 07:00 Intake Total 168.435 ml 791.51 ml Output Total 150 ml 2565 ml Balance 18.435 ml -1773.49 ml Intake Oral 100 ml 500 ml IV Total 68.435 ml 291.51 ml Output Urine Total 150 ml 565 ml Hemodialysis UF 2000 ml Labs Test 08/30/20 08:40 08/30/20 16:28 08/30/20 19:12 08/30/20 21:31 White Blood Count 16.8 K/UL (4.8-10.8) Red Blood Count 3.65 M/UL (4.70-6.10) Hemoglobin 10.2 G/DL (14.2-18.0) Hematocrit 32.8 % (42.0-52.0) Mean Corpuscular Volume 90 FL (80-99) Mean Corpuscular Hemoglobin 28.0 PG (27.0-31.0) Mean Corpuscular Hemoglobin Concent 31.1 G/DL (32.0-36.0) Red Cell Distribution Width 22.1 % (11.6-14.8) Platelet Count 236 K/UL (150-450) Mean Platelet Volume 8.2 FL (6.5-10.1) Neutrophils (%) (Auto) 83.3 % (45.0-75.0) Lymphocytes (%) (Auto) 8.8 % (20.0-45.0) Monocytes (%) (Auto) 7.4 % (1.0-10.0) Eosinophils (%) (Auto) 0.1 % (0.0-3.0) Basophils (%) (Auto) 0.4 % (0.0-2.0) Sodium Level 137 MMOL/L (136-145) 132 MMOL/L (136-145) Potassium Level 5.3 MMOL/L (3.5-5.1) 5.4 MMOL/L (3.5-5.1) Chloride Level 99 MMOL/L (98-107) 95 MMOL/L (98-107) Carbon Dioxide Level 21 MMOL/L (21-32) 16 MMOL/L (21-32) Anion Gap 17 mmol/L (5-15) 21 mmol/L (5-15) Blood Urea Nitrogen 58 mg/dL (7-18) 73 mg/dL (7-18) Creatinine 3.8 MG/DL (0.55-1.30) 4.8 MG/DL (0.55-1.30) Estimat Glomerular Filtration Rate 15.5 mL/min (>60) 11.8 mL/min (>60) Glucose Level 155 MG/DL (74-106) 184 MG/DL (74-106) Hemoglobin A1c 6.3 % (4.3-6.0) Calcium Level 7.8 MG/DL (8.5-10.1) 8.0 MG/DL (8.5-10.1) Magnesium Level 2.8 MG/DL (1.8-2.4) C-Reactive Protein, Quantitative 13.6 mg/dL (0.00-0.90) Urine Color Brown Urine Appearance Cloudy Urine pH 5 (4.5-8.0) Urine Specific [place] 1.020 (1.005-1.035) Urine Protein 3+ (NEGATIVE) Urine Glucose (UA) Negative (NEGATIVE) Urine Ketones 1+ (NEGATIVE) Urine Blood 5+ (NEGATIVE) Urine Nitrite Positive (NEGATIVE) Urine Bilirubin 2+ (NEGATIVE) Urine Ictotest Negative (NEGATIVE) Urine Urobilinogen 1 MG/DL (0.0-1.0) Urine Leukocyte Esterase 2+ (NEGATIVE) Urine RBC 10-15 /HPF (0 - 0) Urine WBC 15-20 /HPF (0 - 0) Urine Squamous Epithelial Cells Few /LPF (NONE/OCC) Urine Amorphous Sediment Many /LPF (NONE) Urine Bacteria Many /HPF (NONE) POC Whole Blood Glucose 178 MG/DL (74-106) Test 08/31/20 06:20 08/31/20 06:28 08/31/20 11:57 08/31/20 16:42 White Blood Count 17.4 K/UL (4.8-10.8) Red Blood Count 3.59 M/UL (4.70-6.10) Hemoglobin 9.9 G/DL (14.2-18.0) Hematocrit 31.9 % (42.0-52.0) Mean Corpuscular Volume 89 FL (80-99) Mean Corpuscular Hemoglobin 27.7 PG (27.0-31.0) Mean Corpuscular Hemoglobin Concent 31.1 G/DL (32.0-36.0) Red Cell Distribution Width 21.8 % (11.6-14.8) Platelet Count 187 K/UL (150-450) Mean Platelet Volume 8.1 FL (6.5-10.1) Neutrophils (%) (Auto) % (45.0-75.0) Lymphocytes (%) (Auto) % (20.0-45.0) Monocytes (%) (Auto) % (1.0-10.0) Eosinophils (%) (Auto) % (0.0-3.0) Basophils (%) (Auto) % (0.0-2.0) Differential Total Cells Counted 100 Neutrophils % (Manual) 88 % (45-75) Lymphocytes % (Manual) 3 % (20-45) Monocytes % (Manual) 9 % (1-10) Eosinophils % (Manual) 0 % (0-3) Basophils % (Manual) 0 % (0-2) Band Neutrophils 0 % (0-8) Platelet Estimate Adequate Platelet Morphology Normal Polychromasia 1+ Hypochromasia 1+ Anisocytosis 3+ Ovalocytes Occasional Sodium Level 134 MMOL/L (136-145) Potassium Level 4.2 MMOL/L (3.5-5.1) Chloride Level 95 MMOL/L (98-107) Carbon Dioxide Level 19 MMOL/L (21-32) Anion Gap 20 mmol/L (5-15) Blood Urea Nitrogen 85 mg/dL (7-18) Creatinine 5.3 MG/DL (0.55-1.30) Estimat Glomerular Filtration Rate 10.5 mL/min (>60) Glucose Level 145 MG/DL (74-106) Calcium Level 6.9 MG/DL (8.5-10.1) Magnesium Level 2.9 MG/DL (1.8-2.4) Total Bilirubin 2.8 MG/DL (0.2-1.0) Direct Bilirubin 1.9 MG/DL (0.0-0.3) Aspartate Amino Transf (AST/SGOT) 02886 U/L (15-37) Alanine Aminotransferase (ALT/SGPT) 8234 U/L (12-78) Alkaline Phosphatase 153 U/L (46-116) Total Protein 7.0 G/DL (6.4-8.2) Albumin 3.4 G/DL (3.4-5.0) Globulin 3.6 g/dL Albumin/Globulin Ratio 0.9 (1.0-2.7) Random Vancomycin Level 17.4 ug/mL POC Whole Blood Glucose 157 MG/DL (74-106) 243 MG/DL (74-106) 249 MG/DL (74-106) Test 08/31/20 17:30 08/31/20 21:01 09/01/20 06:05 09/01/20 16:15 Sodium Level 132 MMOL/L (136-145) 130 MMOL/L (136-145) 128 MMOL/L (136-145) Potassium Level 3.7 MMOL/L (3.5-5.1) 3.6 MMOL/L (3.5-5.1) 3.6 MMOL/L (3.5-5.1) Chloride Level 93 MMOL/L (98-107) 92 MMOL/L (98-107) 89 MMOL/L (98-107) Carbon Dioxide Level 21 MMOL/L (21-32) 18 MMOL/L (21-32) 18 MMOL/L (21-32) Anion Gap 18 mmol/L (5-15) 20 mmol/L (5-15) 21 mmol/L (5-15) Blood Urea Nitrogen 100 mg/dL (7-18) 105 mg/dL (7-18) 114 mg/dL (7-18) Creatinine 6.0 MG/DL (0.55-1.30) 6.6 MG/DL (0.55-1.30) 7.0 MG/DL (0.55-1.30) Estimat Glomerular Filtration Rate 9.1 mL/min (>60) 8.2 mL/min (>60) 7.7 mL/min (>60) Glucose Level 233 MG/DL (74-106) 170 MG/DL (74-106) 238 MG/DL (74-106) Calcium Level 6.1 MG/DL (8.5-10.1) 5.8 MG/DL (8.5-10.1) 6.1 MG/DL (8.5-10.1) POC Whole Blood Glucose 221 MG/DL (74-106) White Blood Count 15.3 K/UL (4.8-10.8) Red Blood Count 3.35 M/UL (4.70-6.10) Hemoglobin 9.2 G/DL (14.2-18.0) Hematocrit 29.0 % (42.0-52.0) Mean Corpuscular Volume 87 FL (80-99) Mean Corpuscular Hemoglobin 27.6 PG (27.0-31.0) Mean Corpuscular Hemoglobin Concent 31.9 G/DL (32.0-36.0) Red Cell Distribution Width 21.1 % (11.6-14.8) Platelet Count 157 K/UL (150-450) Mean Platelet Volume 8.2 FL (6.5-10.1) Neutrophils (%) (Auto) % (45.0-75.0) Lymphocytes (%) (Auto) % (20.0-45.0) Monocytes (%) (Auto) % (1.0-10.0) Eosinophils (%) (Auto) % (0.0-3.0) Basophils (%) (Auto) % (0.0-2.0) Differential Total Cells Counted 100 Neutrophils % (Manual) 90 % (45-75) Lymphocytes % (Manual) 4 % (20-45) Monocytes % (Manual) 6 % (1-10) Eosinophils % (Manual) 0 % (0-3) Basophils % (Manual) 0 % (0-2) Band Neutrophils 0 % (0-8) Platelet Estimate Adequate Platelet Morphology Normal Polychromasia 1+ Hypochromasia 1+ Anisocytosis 2+ Ovalocytes Rare Phosphorus Level 8.6 MG/DL (2.5-4.9) Magnesium Level 2.6 MG/DL (1.8-2.4) Total Bilirubin 2.9 MG/DL (0.2-1.0) 3.1 MG/DL (0.2-1.0) Direct Bilirubin 2.2 MG/DL (0.0-0.3) 2.3 MG/DL (0.0-0.3) Aspartate Amino Transf (AST/SGOT) 6048 U/L (15-37) 4602 U/L (15-37) Alanine Aminotransferase (ALT/SGPT) 5432 U/L (12-78) 5079 U/L (12-78) Alkaline Phosphatase 162 U/L (46-116) 161 U/L (46-116) Total Protein 6.5 G/DL (6.4-8.2) 6.5 G/DL (6.4-8.2) Albumin 3.2 G/DL (3.4-5.0) 3.1 G/DL (3.4-5.0) Globulin 3.3 g/dL 3.4 g/dL Albumin/Globulin Ratio 1.0 (1.0-2.7) 0.9 (1.0-2.7) Test 09/01/20 17:52 09/02/20 04:00 09/02/20 06:11 POC Whole Blood Glucose 219 MG/DL (74-106) White Blood Count 10.8 K/UL (4.8-10.8) Red Blood Count 3.60 M/UL (4.70-6.10) Hemoglobin 9.9 G/DL (14.2-18.0) Hematocrit 31.7 % (42.0-52.0) Mean Corpuscular Volume 88 FL (80-99) Mean Corpuscular Hemoglobin 27.5 PG (27.0-31.0) Mean Corpuscular Hemoglobin Concent 31.2 G/DL (32.0-36.0) Red Cell Distribution Width 22.1 % (11.6-14.8) Platelet Count 156 K/UL (150-450) Mean Platelet Volume 8.3 FL (6.5-10.1) Neutrophils (%) (Auto) % (45.0-75.0) Lymphocytes (%) (Auto) % (20.0-45.0) Monocytes (%) (Auto) % (1.0-10.0) Eosinophils (%) (Auto) % (0.0-3.0) Basophils (%) (Auto) % (0.0-2.0) Sodium Level 130 MMOL/L (136-145) Potassium Level 4.2 MMOL/L (3.5-5.1) Chloride Level 92 MMOL/L (98-107) Carbon Dioxide Level 19 MMOL/L (21-32) Anion Gap 19 mmol/L (5-15) Blood Urea Nitrogen 78 mg/dL (7-18) Creatinine 5.7 MG/DL (0.55-1.30) Estimat Glomerular Filtration Rate 9.7 mL/min (>60) Glucose Level 193 MG/DL (74-106) Calcium Level 8.2 MG/DL (8.5-10.1) Magnesium Level 2.6 MG/DL (1.8-2.4) Total Bilirubin 3.5 MG/DL (0.2-1.0) Direct Bilirubin 0.3 MG/DL (0.0-0.3) Aspartate Amino Transf (AST/SGOT) 2297 U/L (15-37) Alanine Aminotransferase (ALT/SGPT) 4244 U/L (12-78) Alkaline Phosphatase 175 U/L (46-116) Total Protein 6.7 G/DL (6.4-8.2) Albumin 3.1 G/DL (3.4-5.0) Globulin 3.6 g/dL Albumin/Globulin Ratio 0.9 (1.0-2.7) Height (Feet): 5 Height (Inches): 5.00 Weight (Pounds): 152 Objective Physical Exam General Appearance: no apparent distress Lines, tubes and drains: peripheral HEENT: normocephalic, atraumatic Neck: non-tender, normal alignment Respiratory/Chest: chest wall non-tender, lungs clear Cardiovascular/Chest: normal peripheral pulses, normal rate Abdomen: normal bowel sounds, non tender, soft Neurologic: alert, oriented x 3 Derrick Cisneros MD Sep 02, 2020 07:00
--- NOTE | 2020-09-02 07:30 | NUR ---
NURSE NOTES: Pt received from IVY Escobar. Pt is awake in bed, AAO x 4, in no acute distress, on 2L O2 via NC. Pupils are equal and round - 3 mm PERRLA +. Lung sounds noted diminished upon auscultation. Pt is SR to registered nurse cardiac telemetry. Denies pain at this time. Radial and dorsalis pedis pulses 2+. 1+ pitting edema noted BLE. pt is afebrile. Bowel sounds are active to all quadrants. Abdomen appears round, soft, and non-tender. F/C noted draining small amount of light [place] urine. No skin alterations noted. Pt has a ANGELICA PICC with dry and intact dressing running dobutamine gtt at 3 ug/kg/min. Pt also has a RIJ Bob catheter with dry and intact dressing (for HD). Bed in lowest position, alarm on, side rails up x 2, call light within reach. Will continue to monitor.
[2020-09-02] MEDS: Renvela 800mg Pkt ORAL SCH ×2 (08:21→12:04)
[2020-09-02] MEDS: Patient's Own Med - Tivicay 50mg ORAL SCH (08:22)
[2020-09-02] MEDS: Patient's Own Med - Prezcobix 800/150mg ORAL SCH (08:22)
[2020-09-02] MEDS: Heparin 5000 units/ml inj SUBQ SCH (08:24)
--- NOTE | 2020-09-02 09:00 | NUR ---
NURSE NOTES: Dr Daniel Cowart assessing pt at bedside.
--- NOTE | 2020-09-02 09:41 | Pulmonology Progress Note ---
Subjective ROS Limited/Unobtainable: No Interval Events: Seen in ICU Constitutional: Reports: no symptoms; Denies: fever HEENT: Repors: no symptoms Respiratory: Reports: no symptoms Cardiovascular: Reports: no symptoms Gastrointestinal/Abdominal: Reports: no symptoms; Denies: nausea, vomiting, diarrhea Genitourinary: Reports: no symptoms Allergies: Coded Allergies: No Known Allergies (Unverified , 06/03/20) Objective Last 24 Hour Vital Signs Date Time Temp Pulse Resp B/P (MAP) Pulse Ox O2 Delivery O2 Flow Rate FiO2 09/02/20 07:30 94 19 90/62 (71) 100 09/02/20 07:00 95 17 88/58 (68) 100 09/02/20 06:30 94 26 87/53 (64) 100 09/02/20 06:00 95 24 84/57 (66) 100 09/02/20 05:30 94 20 80/47 (58) 100 09/02/20 05:00 95 21 175/143 (154) 100 09/02/20 04:30 95 26 88/61 (70) 100 09/02/20 04:00 94 09/02/20 04:00 98.5 95 21 90/60 (70) 100 09/02/20 04:00 Nasal Cannula 2.0 09/02/20 03:00 94 20 92/62 (72) 100 09/02/20 02:30 96 25 88/62 (71) 100 09/02/20 02:00 94 21 88/69 (75) 09/02/20 01:30 96 24 85/59 (68) 100 09/02/20 01:00 96 20 116/88 (97) 100 09/02/20 00:30 98 22 111/79 (90) 100 09/02/20 00:00 85 09/02/20 00:00 Nasal Cannula 2.0 09/02/20 00:00 98.9 98 25 93/55 (68) 09/01/20 23:30 102 24 97/60 (72) 09/01/20 23:27 103 28 97/74 (82) 98 09/01/20 23:00 101 29 86/42 (57) 100 09/01/20 22:30 99 27 100/70 (80) 100 09/01/20 22:00 103 27 97/66 (76) 100 09/01/20 21:30 100 23 94/47 (63) 09/01/20 21:00 100 23 94/47 (63) 09/01/20 20:30 108 27 96/70 (79) 99 09/01/20 20:00 87 09/01/20 20:00 98.6 106 24 92/70 (77) 100 09/01/20 20:00 Nasal Cannula 4.0 09/01/20 19:30 103 23 110/68 (82) 100 09/01/20 19:00 100 24 101/61 (74) 100 09/01/20 18:32 100/68 09/01/20 18:28 92 17 95/60 (72) 99 09/01/20 18:00 89 24 104/59 (74) 100 09/01/20 17:00 92 17 95/60 (72) 99 09/01/20 16:00 91 17 105/56 (72) 100 09/01/20 16:00 90 09/01/20 15:30 Nasal Cannula 3.0 09/01/20 15:00 97.5 91 20 98/68 (78) 100 09/01/20 13:30 2.0 09/01/20 12:57 4.0 09/01/20 12:00 92 09/01/20 12:00 97.1 94 20 88/58 (68) 97 Intake and Output 09/01/20 09/02/20 19:00 07:00 Intake Total 168.435 ml 791.51 ml Output Total 150 ml 2595 ml Balance 18.435 ml -1803.49 ml Intake Oral 100 ml 500 ml IV Total 68.435 ml 291.51 ml Output Urine Total 150 ml 595 ml Hemodialysis UF 2000 ml General Appearance: no acute distress HEENT: normocephalic Respiratory: chest wall non-tender, decreased breath sounds Cardiovascular: normal peripheral pulses, normal rate Abdomen: normal bowel sounds Microbiology Date/Time Source Procedure Growth Status 08/30/20 15:33 Sputum Induced Gram Stain - Final Complete 08/30/20 15:33 Sputum Induced Sputum Culture - Final NORMAL UPPER RESPIRATORY RUFINO PRESENT Complete Laboratory Tests 09/01/20 16:15: Sodium Level 128L, Potassium Level 3.6, Chloride Level 89L, Carbon Dioxide Level 18L, Anion Gap 21H, Blood Urea Nitrogen 114H, Creatinine 7.0H, Estimat Glomerular Filtration Rate 7.7, Glucose Level 238H, Calcium Level 6.1L, Total Bilirubin 3.1H, Direct Bilirubin 2.3H, Aspartate Amino Transf (AST/SGOT) 4602H, Alanine Aminotransferase (ALT/SGPT) 5079H, Alkaline Phosphatase 161H, Total Protein 6.5, Albumin 3.1L, Globulin 3.4, Albumin/Globulin Ratio 0.9L 09/01/20 17:52: POC Whole Blood Glucose 219H 09/01/20 21:08: POC Whole Blood Glucose [Pending] 09/02/20 04:00: Sodium Level 130L, Potassium Level 4.2, Chloride Level 92L, Carbon Dioxide Level 19L, Anion Gap 19H, Blood Urea Nitrogen 78H, Creatinine 5.7H, Estimat Glomerular Filtration Rate 9.7, Glucose Level 193H, Calcium Level 8.2#L, Total Bilirubin 3.5H, Direct Bilirubin 0.3, Aspartate Amino Transf (AST/SGOT) 2297H, Alanine Aminotransferase (ALT/SGPT) 4244H, Alkaline Phosphatase 175H, Total Protein 6.7, Albumin 3.1L, Globulin 3.6, Albumin/Globulin Ratio 0.9L, White Blood Count 10.8, Red Blood Count 3.60L, Hemoglobin 9.9L, Hematocrit 31.7L, Mean Corpuscular Volume 88, Mean Corpuscular Hemoglobin 27.5, Mean Corpuscular Hemoglobin Concent 31.2L, Red Cell Distribution Width 22.1H, Platelet Count 156, Mean Platelet Volume 8.3, Neutrophils (%) (Auto) , Lymphocytes (%) (Auto) , Monocytes (%) (Auto) , Eosinophils (%) (Auto) , Basophils (%) (Auto) , Differential Total Cells Counted 100, Neutrophils % (Manual) 90H, Lymphocytes % (Manual) 3L, Monocytes % (Manual) 7, Eosinophils % (Manual) 0, Basophils % (Manual) 0, Band Neutrophils 0, Platelet Estimate Adequate, Platelet Morphology Normal, Hypochromasia 1+, Anisocytosis 3+, [place] Cells Occasional, Schistocytes Rare, Magnesium Level 2.6H 09/02/20 06:11: POC Whole Blood Glucose [Pending] Current Medications Medications (Trade) Dose Ordered Sig/[place] Route PRN Reason Start Time Stop Time Status Last Admin Dose Admin Acetaminophen (Tylenol) 650 mg Q4H PRN ORAL Mild Pain (Pain Scale 1-3) 08/25/20 18:15 09/24/20 18:14 Atorvastatin Calcium (Lipitor) 20 mg BEDTIME ORAL 08/26/20 21:00 11/24/20 20:59 09/01/20 21:00 Chlorhexidine Gluconate (Antonette-Hex 2%) 1 applic DAILY@2000 TOPIC 08/28/20 20:00 11/26/20 19:59 09/01/20 19:44 Dextrose (Dextrose 50%) 25 ml Q30M PRN IV Hypoglycemia 08/25/20 18:15 11/23/20 18:14 Dextrose (Dextrose 50%) 50 ml Q30M PRN IV Hypoglycemia 08/25/20 18:15 11/23/20 18:14 Dobutamine HCl 250 ml @ 12.41 mls/ hr Q24H IV 08/30/20 21:00 09/02/20 20:57 09/01/20 18:32 Doxycycline Hyclate 100 mg/ Dextrose 100 ml @ 100 mls/hr Q12HR IV 09/01/20 09:00 09/08/20 08:59 09/01/20 20:52 Famotidine (Pepcid) 40 mg DAILY ORAL 08/26/20 09:00 11/24/20 08:59 09/02/20 08:22 Ferrous Gluconate (Fergon) 324 mg EVERY OTHER DAY ORAL 08/30/20 12:00 11/28/20 11:59 09/01/20 08:24 Heparin Sodium (Porcine) (Heparin 5000 units/ml) 5,000 units EVERY 12 HOURS SUBQ 08/26/20 09:00 10/10/20 08:59 09/02/20 08:24 Insulin Aspart (NovoLOG) BEFORE MEALS AND HS SUBQ 08/25/20 21:00 11/23/20 20:59 09/02/20 06:49 Ondansetron HCl (Zofran) 4 mg Q6H PRN IVP Nausea & Vomiting 08/31/20 14:00 09/30/20 13:59 08/31/20 14:16 Patient Own Medication (Patient's Own Med) 1 ea DAILY ORAL 08/27/20 09:00 09/26/20 08:59 11/24/20 08:22 Patient Own Medication (Patient's Own Med) 1 ea DAILY ORAL 08/27/20 09:00 09/26/20 08:59 09/02/20 08:22 Piperacillin Sod/ Tazobactam Sod 2.25 gm/Dextrose 55 ml @ 110 mls/hr Q8HR IV 09/01/20 22:00 09/06/20 21:59 09/02/20 06:00 Sevelamer Carbonate (Renvela) 1,600 mg THREE TIMES A DAY ORAL 09/01/20 13:00 11/30/20 12:59 09/02/20 08:21 Assessment/Plan Assessment/Plan 1. Exacerbation of congestive heart failure with ejection fraction of 30%. Continue dobutamine as well as Lasix drip. 2. Troponin elevation, could be due to patient's renal failure with creatinine of 3.5. 3. Acute renal failure. Hor HD. 4. Hypertension. 5. Incomplete left bundle-branch block. 6. HIV. Patient is on anti-retroviral therapy including Prezcobix and Tivicay. Continue HD Pressor support prn Low flow O2 Will follow Eric Martinez Omar Syed MD Sep 02, 2020 09:41
--- NOTE | 2020-09-02 11:00 | NUR ---
NURSE NOTES: Dr Montoya assessing pt at bedside.
--- NOTE | 2020-09-02 11:17 | NUR ---
NURSE NOTES: Dr Montoya assessing pt at bedside.
[2020-09-02] MEDS ORDERED: DOPamine 400mg/250ml 250 ML IV SCH (11:22)
--- NOTE | 2020-09-02 12:22 | NUR ---
CODE BLUE: Pt found hypotensive and evolving into bradycardia despite being on dopamine and dobutamine gtts. Pt eventually noted in with agonal breathing. Code kasi called. See Code sheet which remains on paper.
[2020-09-02] MEDS ORDERED: Norepinephrine 4mg/NS Premix 250 ML ONE (12:40)
--- NOTE | 2020-09-02 12:45 | NUR ---
NURSE NOTES: Dr Gupta at bedside.
[2020-09-02] MEDS ORDERED: Midodrine 10mg tab ORAL SCH (13:00)
--- NOTE | 2020-09-02 13:04 | Cardiac Electrophysiology PN ---
Assessment/Plan Assessment/Plan 1. Exacerbation of congestive heart failure with ejection fraction of 30% in 05/2020 at [place]. Repeat echocardiogram showed EF still 20% Increased dobutamine to 3 Mcg and now on HD Hold off on Coreg, lisinopril, and Aldactone in view of hypotension as well as acute renal failure. S/P PICC line Will need prophylactic ICD 2. Troponin elevation, could be due to patient's renal failure with creatinine of 3.5. 3. Acute renal failure. Again, the creatinine was 1.2 on 06/06/2020 and on admission was 3.0, likely due to cardiorenal syndrome.Avoid ACEI and ARB Cr improved to 1.8 08/29 but up to 6.6 despite Dobutamine at 3 mcg and off Lasix. Now on HD 4. Hypotension. On dobutamine. Add Dopamine and Midodrine 10 tid 5. Incomplete left bundle-branch block. 6. HIV. Patient is on anti-retroviral therapy including Prezcobix and Tivicay. MILY RN and Dr Alonso Park, his residential subcontractor. Subjective Subjective CHF exacerbation EF 30% in 05/2020 and now 20%. Also in ARF with CR 1.2 increased to 3.0 since May 2020 Transferred to ICU on Dobutamine drip 3 mcg and had HD via Right IJ bob. BP in 90s Objective Last 24 Hour Vital Signs Date Time Temp Pulse Resp B/P (MAP) Pulse Ox O2 Delivery O2 Flow Rate FiO2 09/02/20 12:12 92 23 71/49 (56) 100 09/02/20 12:10 92 22 68/54 (59) 96 09/02/20 12:08 92 25 77/60 (66) 98 09/02/20 12:00 Nasal Cannula 2.0 09/02/20 12:00 97.6 90 21 79/51 (60) 100 09/02/20 11:46 88/56 09/02/20 11:30 91 88/56 (67) 100 09/02/20 11:00 89 24 89/61 (70) 100 09/02/20 10:30 90 25 94/64 (74) 99 09/02/20 10:00 91 26 87/59 (68) 96 09/02/20 09:30 90 20 98/54 (69) 100 09/02/20 09:00 91 21 112/81 (91) 99 09/02/20 08:30 94 20 83/58 (66) 99 09/02/20 08:00 Nasal Cannula 2.0 09/02/20 08:00 93 09/02/20 08:00 97.4 94 22 89/62 (71) 100 09/02/20 07:30 94 19 90/62 (71) 100 09/02/20 07:00 95 17 88/58 (68) 100 09/02/20 06:30 94 26 87/53 (64) 100 09/02/20 06:00 95 24 84/57 (66) 100 09/02/20 05:30 94 20 80/47 (58) 100 09/02/20 05:00 95 21 175/143 (154) 100 09/02/20 04:30 95 26 88/61 (70) 100 09/02/20 04:00 94 09/02/20 04:00 98.5 95 21 90/60 (70) 100 09/02/20 04:00 Nasal Cannula 2.0 09/02/20 03:00 94 20 92/62 (72) 100 09/02/20 02:30 96 25 88/62 (71) 100 09/02/20 02:00 94 21 88/69 (75) 09/02/20 01:30 96 24 85/59 (68) 100 09/02/20 01:00 96 20 116/88 (97) 100 09/02/20 00:30 98 22 111/79 (90) 100 09/02/20 00:00 85 09/02/20 00:00 Nasal Cannula 2.0 09/02/20 00:00 98.9 98 25 93/55 (68) 09/01/20 23:30 102 24 97/60 (72) 09/01/20 23:27 103 28 97/74 (82) 98 09/01/20 23:00 101 29 86/42 (57) 100 09/01/20 22:30 99 27 100/70 (80) 100 09/01/20 22:00 103 27 97/66 (76) 100 09/01/20 21:30 100 23 94/47 (63) 09/01/20 21:00 100 23 94/47 (63) 09/01/20 20:30 108 27 96/70 (79) 99 11/23/20 20:00 87 09/01/20 20:00 98.6 106 24 92/70 (77) 100 09/01/20 20:00 Nasal Cannula 4.0 09/01/20 19:30 103 23 110/68 (82) 100 09/01/20 19:00 100 24 101/61 (74) 100 09/01/20 18:32 100/68 09/01/20 18:28 92 17 95/60 (72) 99 09/01/20 18:00 89 24 104/59 (74) 100 09/01/20 17:00 92 17 95/60 (72) 99 09/01/20 16:00 91 17 105/56 (72) 100 09/01/20 16:00 90 09/01/20 15:30 Nasal Cannula 3.0 09/01/20 15:00 97.5 91 20 98/68 (78) 100 09/01/20 13:30 2.0 Intake and Output 09/01/20 09/02/20 19:00 07:00 Intake Total 168.435 ml 791.51 ml Output Total 150 ml 2595 ml Balance 18.435 ml -1803.49 ml Intake Oral 100 ml 500 ml IV Total 68.435 ml 291.51 ml Output Urine Total 150 ml 595 ml Hemodialysis UF 2000 ml Laboratory Tests Test 09/01/20 16:15 09/01/20 17:52 09/01/20 21:08 09/02/20 04:00 Sodium Level 128 MMOL/L (136-145) L 130 MMOL/L (136-145) L Potassium Level 3.6 MMOL/L (3.5-5.1) 4.2 MMOL/L (3.5-5.1) Chloride Level 89 MMOL/L (98-107) L 92 MMOL/L (98-107) L Carbon Dioxide Level 18 MMOL/L (21-32) L 19 MMOL/L (21-32) L Anion Gap 21 mmol/L (5-15) H 19 mmol/L (5-15) H Blood Urea Nitrogen 114 mg/dL (7-18) H 78 mg/dL (7-18) H Creatinine 7.0 MG/DL (0.55-1.30) H 5.7 MG/DL (0.55-1.30) H Estimat Glomerular Filtration Rate 7.7 mL/min (>60) 9.7 mL/min (>60) Glucose Level 238 MG/DL (74-106) H 193 MG/DL (74-106) H Calcium Level 6.1 MG/DL (8.5-10.1) L 8.2 MG/DL (8.5-10.1) #L Total Bilirubin 3.1 MG/DL (0.2-1.0) H 3.5 MG/DL (0.2-1.0) H Direct Bilirubin 2.3 MG/DL (0.0-0.3) H 0.3 MG/DL (0.0-0.3) Aspartate Amino Transf (AST/SGOT) 4602 U/L (15-37) H 2297 U/L (15-37) H Alanine Aminotransferase (ALT/SGPT) 5079 U/L (12-78) H 4244 U/L (12-78) H Alkaline Phosphatase 161 U/L (46-116) H 175 U/L (46-116) H Total Protein 6.5 G/DL (6.4-8.2) 6.7 G/DL (6.4-8.2) Albumin 3.1 G/DL (3.4-5.0) L 3.1 G/DL (3.4-5.0) L Globulin 3.4 g/dL 3.6 g/dL Albumin/Globulin Ratio 0.9 (1.0-2.7) L 0.9 (1.0-2.7) L POC Whole Blood Glucose 219 MG/DL (74-106) H Pending White Blood Count 10.8 K/UL (4.8-10.8) Red Blood Count 3.60 M/UL (4.70-6.10) L Hemoglobin 9.9 G/DL (14.2-18.0) L Hematocrit 31.7 % (42.0-52.0) L Mean Corpuscular Volume 88 FL (80-99) Mean Corpuscular Hemoglobin 27.5 PG (27.0-31.0) Mean Corpuscular Hemoglobin Concent 31.2 G/DL (32.0-36.0) L Red Cell Distribution Width 22.1 % (11.6-14.8) H Platelet Count 156 K/UL (150-450) Mean Platelet Volume 8.3 FL (6.5-10.1) Neutrophils (%) (Auto) % (45.0-75.0) Lymphocytes (%) (Auto) % (20.0-45.0) Monocytes (%) (Auto) % (1.0-10.0) Eosinophils (%) (Auto) % (0.0-3.0) Basophils (%) (Auto) % (0.0-2.0) Differential Total Cells Counted 100 Neutrophils % (Manual) 90 % (45-75) H Lymphocytes % (Manual) 3 % (20-45) L Monocytes % (Manual) 7 % (1-10) Eosinophils % (Manual) 0 % (0-3) Basophils % (Manual) 0 % (0-2) Band Neutrophils 0 % (0-8) Platelet Estimate Adequate Platelet Morphology Normal Hypochromasia 1+ Anisocytosis 3+ [place] Cells Occasional Schistocytes Rare Magnesium Level 2.6 MG/DL (1.8-2.4) H Test 09/02/20 06:11 09/02/20 12:26 POC Whole Blood Glucose Pending Pending Microbiology Date/Time Source Procedure Growth Status 08/30/20 16:28 Urine,Clean Catch Urine Culture - Preliminary NO GROWTH Resulted 08/30/20 15:33 Sputum Induced Gram Stain - Final Complete 08/30/20 15:33 Sputum Induced Sputum Culture - Final NORMAL UPPER RESPIRATORY RUFINO PRESENT Complete Objective HEAD AND NECK: Mild JVD.Right IJ Bob LUNGS: Coarse rhonchi. CARDIOVASCULAR: regular S1 and S2 with no gallop. ABDOMEN: Soft. EXTREMITIES: 2+ bilateral pitting edema. Grabiel Montoya MD Sep 02, 2020 13:03
--- NOTE | 2020-09-02 13:04 | Nephrology Progress Note ---
Assessment/Plan Plan #AHSAN due to CRS1- now worsening in the setting of active diuresis- progressing to ATN #cardiogenic shock #shock liver #acute on chronic decompensated CHF #h/o HFref #HTN #DM #HIV #Anemia - s/p HD last night - continue with pressors - monitor UOP- oligoanuric now - monitor PVRs - monitor K - echo noted - monitor UOP - monitor weights - monitor renal parameters - replete lytes -avoid nephrotoxins time spent 65min Subjective ROS Limited/Unobtainable: No Constitutional: Reports: weakness HEENT: Denies: no symptoms, eye pain, blurred vision, tearing, double vision, ear pain, ear discharge, nose pain, nose congestion, throat pain, throat swelling, mouth pain, mouth swelling, other Genitourinary: Denies: no symptoms, burning, discharge, frequency, flank pain, hematuria, incontinence, pain, urgency, other Neurologic/Psychiatric: Denies: no symptoms, anxiety, depressed, emotional problems, headache, numbness, paresthesia, pre-existing deficit, seizure, tingli ng, tremors, weakness, other Subjective transferred to ICU last night underwent HD last night with 1l UF starte don dobutamin drip more hypotensive Objective Objective Last 24 Hour Vital Signs Date Time Temp Pulse Resp B/P (MAP) Pulse Ox O2 Delivery O2 Flow Rate FiO2 09/02/20 12:12 92 23 71/49 (56) 100 09/02/20 12:10 92 22 68/54 (59) 96 09/02/20 12:08 92 25 77/60 (66) 98 09/02/20 12:00 Nasal Cannula 2.0 09/02/20 12:00 97.6 90 21 79/51 (60) 100 09/02/20 11:46 88/56 09/02/20 11:30 91 88/56 (67) 100 09/02/20 11:00 89 24 89/61 (70) 100 09/02/20 10:30 90 25 94/64 (74) 99 09/02/20 10:00 91 26 87/59 (68) 96 09/02/20 09:30 90 20 98/54 (69) 100 09/02/20 09:00 91 21 112/81 (91) 99 09/02/20 08:30 94 20 83/58 (66) 99 09/02/20 08:00 Nasal Cannula 2.0 09/02/20 08:00 93 09/02/20 08:00 97.4 94 22 89/62 (71) 100 09/02/20 07:30 94 19 90/62 (71) 100 09/02/20 07:00 95 17 88/58 (68) 100 09/02/20 06:30 94 26 87/53 (64) 100 09/02/20 06:00 95 24 84/57 (66) 100 09/02/20 05:30 94 20 80/47 (58) 100 09/02/20 05:00 95 21 175/143 (154) 100 09/02/20 04:30 95 26 88/61 (70) 100 09/02/20 04:00 94 09/02/20 04:00 98.5 95 21 90/60 (70) 100 09/02/20 04:00 Nasal Cannula 2.0 09/02/20 03:00 94 20 92/62 (72) 100 09/02/20 02:30 96 25 88/62 (71) 100 09/02/20 02:00 94 21 88/69 (75) 09/02/20 01:30 96 24 85/59 (68) 100 09/02/20 01:00 96 20 116/88 (97) 100 09/02/20 00:30 98 22 111/79 (90) 100 09/02/20 00:00 85 09/02/20 00:00 Nasal Cannula 2.0 09/02/20 00:00 98.9 98 25 93/55 (68) 09/01/20 23:30 102 24 97/60 (72) 09/01/20 23:27 103 28 97/74 (82) 98 09/01/20 23:00 101 29 86/42 (57) 100 09/01/20 22:30 99 27 100/70 (80) 100 09/01/20 22:00 103 27 97/66 (76) 100 09/01/20 21:30 100 23 94/47 (63) 09/01/20 21:00 100 23 94/47 (63) 09/01/20 20:30 108 27 96/70 (79) 99 09/01/20 20:00 87 09/01/20 20:00 98.6 106 24 92/70 (77) 100 09/01/20 20:00 Nasal Cannula 4.0 09/01/20 19:30 103 23 110/68 (82) 100 09/01/20 19:00 100 24 101/61 (74) 100 09/01/20 18:32 100/68 09/01/20 18:28 92 17 95/60 (72) 99 09/01/20 18:00 89 24 104/59 (74) 100 09/01/20 17:00 92 17 95/60 (72) 99 09/01/20 16:00 91 17 105/56 (72) 100 09/01/20 16:00 90 09/01/20 15:30 Nasal Cannula 3.0 09/01/20 15:00 97.5 91 20 98/68 (78) 100 09/01/20 13:30 2.0 Intake and Output 09/01/20 09/02/20 19:00 07:00 Intake Total 168.435 ml 791.51 ml Output Total 150 ml 2595 ml Balance 18.435 ml -1803.49 ml Intake Oral 100 ml 500 ml IV Total 68.435 ml 291.51 ml Output Urine Total 150 ml 595 ml Hemodialysis UF 2000 ml Laboratory Tests 09/01/20 16:15: Sodium Level 128L, Potassium Level 3.6, Chloride Level 89L, Carbon Dioxide Level 18L, Anion Gap 21H, Blood Urea Nitrogen 114H, Creatinine 7.0H, Estimat Glomerular Filtration Rate 7.7, Glucose Level 238H, Calcium Level 6.1L, Total Bilirubin 3.1H, Direct Bilirubin 2.3H, Aspartate Amino Transf (AST/SGOT) 4602H, Alanine Aminotransferase (ALT/SGPT) 5079H, Alkaline Phosphatase 161H, Total Protein 6.5, Albumin 3.1L, Globulin 3.4, Albumin/Globulin Ratio 0.9L 09/01/20 17:52: POC Whole Blood Glucose 219H 09/01/20 21:08: POC Whole Blood Glucose [Pending] 09/02/20 04:00: Sodium Level 130L, Potassium Level 4.2, Chloride Level 92L, Carbon Dioxide Level 19L, Anion Gap 19H, Blood Urea Nitrogen 78H, Creatinine 5.7H, Estimat Glomerular Filtration Rate 9.7, Glucose Level 193H, Calcium Level 8.2#L, Total Bilirubin 3.5H, Direct Bilirubin 0.3, Aspartate Amino Transf (AST/SGOT) 2297H, Alanine Aminotransferase (ALT/SGPT) 4244H, Alkaline Phosphatase 175H, Total Protein 6.7, Albumin 3.1L, Globulin 3.6, Albumin/Globulin Ratio 0.9L, White Blood Count 10.8, Red Blood Count 3.60L, Hemoglobin 9.9L, Hematocrit 31.7L, Mean Corpuscular Volume 88, Mean Corpuscular Hemoglobin 27.5, Mean Corpuscular Hemog lobin Concent 31.2L, Red Cell Distribution Width 22.1H, Platelet Count 156, Mean Platelet Volume 8.3, Neutrophils (%) (Auto) , Lymphocytes (%) (Auto) , Monocytes (%) (Auto) , Eosinophils (%) (Auto) , Basophils (%) (Auto) , Di fferential Total Cells Counted 100, Neutrophils % (Manual) 90H, Lymphocytes % (Manual) 3L, Monocytes % (Manual) 7, Eosinophils % (Manual) 0, Basophils % (Manual) 0, Band Neutrophils 0, Platelet Estimate Adequate, Platelet Morphology Normal, Hypochromasia 1+, Anisocytosis 3+, [place] Cells Occasional, Schistocytes Rare, Magnesium Level 2.6H 09/02/20 06:11: POC Whole Blood Glucose [Pending] 09/02/20 12:26: POC Whole Blood Glucose [Pending] Height (Feet): 5 Height (Inches): 5.00 Weight (Pounds): 152 Brady Gupta M.D. Sep 02, 2020 13:04
[2020-09-02] MEDS ORDERED: Atropine Inj 1mg/10ml Syr ONE (13:08)
[2020-09-02] MEDS ORDERED: NS 275ml ONE (13:08)
[2020-09-02] MEDS ORDERED: Tubing IV Secondary IV ONE (13:08)
[2020-09-02] MEDS ORDERED: Calcium Chloride 10% 10ml carpuject IVP ONE (13:08)
[2020-09-02] MEDS ORDERED: Sodium Bicarbonate 50ml Carp ONE (13:08)
--- NOTE | 2020-09-02 13:10 | NUR ---
NURSE NOTES: Pt coded multiple times despite resuscitation attempts. See code blue sheet. Dr Cowart in the unit and spoke to pt's only next of kin available (Caitlin Caceres at [phone] - pt's niece). Per Dr Cowart, Caitlin would like to stop all resuscitate efforts at this point and change the pt's code status to DNR/DNI.
--- NOTE | 2020-09-02 13:19 | NUR ---
PRONOUNCEMENT: No Code. Called to pronounce patient. Absence of spontaneous respirations, no cardiac or breath sounds on auscultation. Pupils fixed and dilated. No carotid pulse or chest movement. Patient at 1309. CRUZ VÁZQUEZ] Family was notified at .BY.AI CONNORS PATTISAPU
--- NOTE | 2020-09-02 13:40 | NUR ---
NURSE NOTES: One [employer] notified.
--- NOTE | 2020-09-02 14:10 | NUR ---
NURSE NOTES: Post mortem care completed.
--- NOTE | 2020-09-02 14:21 | Emergency Room Report ---
History of Present Illness General Chief Complaint: Dyspnea/Respdistress Source: Patient Present Illness HPI Responded to CODE BLUE called overhead Initial rhythm was PEA. Patient had already received 2 rounds of epinephrine. CPR was in progress upon my arrival. Procedure note: Cardiopulmonary Resuscitation by me: See code documentation for specific details. ACLS and BLS were performed with high quality chest compressions and minimal interruptions. Any reversible causes were assessed and treated. ROSC was obtained. Primary team at bedside to continue management Procedure Note: Endotracheal Intubation by me: Pre assessment performed. See preceding note for details. Pre-oxygenation was not performed secondary to emergent need RSI: Performed w/o complication or hypoxic events. Medications as ordered. Emergency Endotracheal Intubation: Consent unable to be obtained due to emergent nature of procedure and airway assessment this patient was prepared for endotracheal intubation with preoxygenation and airway positioning. The patient underwent rapid sequence induction and endotracheal intubation utilizing direct visualization laryngoscopy. The endotracheal tube was placed between the vocal cords and placement was confirmed with fogging of the tube, end title CO2, and equal bilateral chest rise as well as absence of borborygmi over the epigastrium. Chest x-ray was obtained for final confirmation. There were no complications. Blade: VL 4 ET Tube: 7.5 cm Depth: 24 cm at the lip Complications: No hypoxic events or bradycardia Intubation confirmed by colorimetric CO2, equal breath sounds, quiet over the stomach. Intubated with full C spine precautions, with the assistance of residential treatment counselor. Procedure Note Mechanical Vent management PC AC. Patient tolerated procedure well Primary team notified of vent settings for continued management in ICU. Allergies: Coded Allergies: No Known Allergies (Unverified , 06/03/20) COVID-19 Screening Contact w/high risk pt: No Recent Travel to affected area: No Experienced COVID-19 symptoms?: No COVID-19 Testing performed MANAGER NURSING HOME: No COVID-19 Screening: Negative COVID-19 Nursing Documentation-PMH Past Medical History: No History, Except For Hx Hypertension: Yes - DYSLIPIDEMIA Hx Cancer: No Hx Gastrointestinal Problems: No Hx Neurological Problems: No Physical Exam Vital Signs Date Time Temp Pulse Resp B/P (MAP) Pulse Ox O2 Delivery O2 Flow Rate FiO2 08/29/20 08:00 97 08/29/20 08:00 97.6 19 128/81 (97) 99 08/29/20 09:00 Room Air 09/01/20 12:57 4.0 09/02/20 12:30 100 Sp02 EP Interpretation: reviewed, abnormal Medical Decision Making Diagnostic Impression: Primary Impression: CHF (congestive heart failure) Additional Impressions: Anemia Pedal edema Pleural effusion NSTEMI (non-ST elevated myocardial infarction) Pneumonia Acute on chronic systolic (congestive) heart failure Cardiac arrest Last Vital Signs Date Time Temp Pulse Resp B/P (MAP) Pulse Ox O2 Delivery O2 Flow Rate FiO2 09/02/20 13:00 100 39 92/30 (50) 48 09/02/20 12:30 100 09/02/20 12:00 Nasal Cannula 2.0 09/02/20 12:00 97.6 Disposition: ADMITTED INPATIENT Admit Decision Time: 09:00 Condition: Critical Referrals: [facility],REFERR[facility] (PCP) Additional Instructions: Please note that this report is being documented using [employer] technology. This can lead to erroneous entry secondary to incorrect interpretation by the dictating instrument. Ashley Drummond D.O. Sep 02, 2020 14:21
--- NOTE | 2020-09-02 15:30 | NUR ---
NURSE NOTES: Family visiting pt at bedside. Be.tonny released to Francoise Katz (pt's second niece) - including pt's ring, cell phone, medical art therapist, wallet with ID and debit card, and clothing items.
--- NOTE | 2020-09-02 17:00 | NUR ---
NURSE NOTES: Pt transferred [place] [facility] [place].
--- NOTE | 2020-09-02 22:21 | Discharge Summary ---
Discharge Summary Hospital Course Date of Admission Aug 25, 2020 at 14:32 Date of Discharge Sep 02, 2020 at 13:09 Admitting Diagnosis SOB Reason for Hospitalization: Heart failure HPI Andrae Davis is a 80 year old male who was admitted on Aug 25, 2020 at 14:32 for Shortness Of Breath Consultations Cardiology Dr. Montoya Nephrology Dr. Alonso Torre Heme/Onc Dr. Cisneros Procedures Nontunneled dialysis catheter insertion Chest X-ray Echocardiogram Abdominal ultrasound Hospital Course Patient was admitted for severe decompensation of HFrEF with troponin elevation, SOB, much higher BNP than prior. He was started on dobutamine drip and IV Lasix per cardiology. Patient remained in acute renal failure despite attempt at diuresis and eventually required dialysis catheter insertion for HD. Patient eventually became hypotensive and unresponsive, ingrid villaseñor was called. After ROSC was achieved, patient was placed on multiple pressors without improvement and shortly after, went into cardiac arrest again. I spoke with patient's niece who agreed with medical decision to stop resuscitation and patient then at 1309. Discharge Condition Upon Discharge: other - Discharge Vital Signs Last Vital Signs Date Time Temp Pulse Resp B/P (MAP) Pulse Ox O2 Delivery O2 Flow Rate FiO2 09/02/20 13:00 92/30 09/02/20 13:00 100 39 48 09/02/20 12:30 100 09/02/20 12:00 Nasal Cannula 2.0 09/02/20 12:00 97.6 Discharge Disposition Patient went into cardiac arrest with ROSC achieved after CPR. Shortly after, patient went into cardiac arrest again. After discussion with patient's niece, decision was made to stop resuscitation. Patient was pronounced at 1309. Discharge Diagnoses: (1) Cardiac arrest (2) NSTEMI (non-ST elevated myocardial infarction) (3) Acute on chronic systolic (congestive) heart failure (4) Renal failure (5) Anemia Daniel Cowart M.D. Sep 02, 2020 22:21
--- NOTE | 2020-09-05 13:07 | NUR ---
INSURANCE DC SUMMARY/DC INSTRUCTIONS CLINICALS (09/01-09/02) FAXED TO [facility] [phone]
== END 2020-09-02 13:09 | disposition expired ==
LOC: EMR 14:19 → 2E 14:32 → EDBEDREQ 18:18 → 2E 08-29 11:37 → ICU 09-01 14:47
PROC: 02HV33Z Insertion of Infusion Device into Superior Vena Cava, Percutaneous Approach (ICD-10-PCS; principal; 2020-08-27)
PROC: B518ZZA Fluoroscopy of Superior Vena Cava, Guidance (ICD-10-PCS; principal; 2020-08-27)
PROC: 5A1D70Z Performance of Urinary Filtration, Intermittent, Less than 6 Hours Per Day (ICD-10-PCS; 2020-09-01)
PROC: 05HM33Z Insertion of Infusion Device into Right Internal Jugular Vein, Percutaneous Approach (ICD-10-PCS; 2020-09-01)
PROC: B513ZZA Fluoroscopy of Right Jugular Veins, Guidance (ICD-10-PCS; 2020-09-01)
PROC: 0JH63XZ Insertion of Tunneled Vascular Access Device into Chest Subcutaneous Tissue and Fascia, Percutaneous Approach (ICD-10-PCS; 2020-09-01)
PROC: 5A1935Z Respiratory Ventilation, Less than 24 Consecutive Hours (ICD-10-PCS; 2020-09-02)
PROC: 0BH17EZ Insertion of Endotracheal Airway into Trachea, Via Natural or Artificial Opening (ICD-10-PCS; 2020-09-02)
DX: I13.0 Hypertensive heart and chronic kidney disease with heart failure and stage 1 through stage 4 chronic kidney disease, or unspecified chronic kidney disease (principal); I21.4 Non-ST elevation (NSTEMI) myocardial infarction; I50.23 Acute on chronic systolic (congestive) heart failure; A41.9 Sepsis, unspecified organism; J18.9 Pneumonia, unspecified organism; K72.00 Acute and subacute hepatic failure without coma; N17.0 Acute kidney failure with tubular necrosis; N39.0 Urinary tract infection, site not specified; B20 Human immunodeficiency virus [HIV] disease; I44.7 Left bundle-branch block, unspecified; N18.9 Chronic kidney disease, unspecified; D50.9 Iron deficiency anemia, unspecified; E11.9 Type 2 diabetes mellitus without complications
CPT/HCPCS: 36415; 36569; 36573; 71045; 76700; 76770; 76937; 78579; 78580; 80048; 80053; 80202; 81001; 81003; 82248; 82306; 82607; 82728; 82746; 82962; 83036; 83540; 83550; 83735; 83880; 83970; 84100; 84132; 84443; 84484; 85007; 85025; 85379; 85610; 85730; 86140; 86360; 86705; 86709; 86803; 87040; 87070; 87086; 87205; 87340; 87536; 92950; 93005; 93306; 93970; 94002; 96365; 96368; 96375; 99285; A9503; J0171; J1815; J2405; J3490; J8499; U0002